=== PATIENT | female | born 1955 | race Caucasian/White ===

== ENCOUNTER 2017-09-26 21:16 | Inpatient (IN) | END 2017-10-08 20:05 | DRG 563 ==

== ENCOUNTER 2018-07-30 13:49 | Inpatient (IN) | payer MEDICARE, OTHER ==
[~2018-07-30] VITALS: Ht 162.6 cm; Wt 65.4 kg
[~2018-07-30 13:49] MED LIST: LANT3I SC; LINA5TAB PO; LISI10TA2 PO; MIRT15TA5 PO
--- NOTE | 2018-07-30 14:17 | ERD ---
ER Documentation Chief Complaint Chief Complaint bilaterial leg pain with swelling x 1 week HPI The patient is a 63-year-old female, presenting to the ER because of bilateral lower extremity swelling, dyspnea, cough, lower back pain, dysuria for 3 days. She denies similar symptoms previously, denies fever, chills, congestion, neck pain, chest pain, abdominal pain, complains of constipation. She does not smoke nor drink Past medical history: Diabetes mellitus, hypertension, chronic kidney disease, depression Past surgical history: None ROS All systems reviewed and are negative except as per history of present illness. Medications Home Meds Active Scripts Linagliptin (TRADJENTA) 5 Mg Tablet, 5 MG PO QAM for 30 Days, #30 TAB Prov:ERIN HARMON MD 10/08/17 Discontinued Scripts Insulin Glargine* (Lantus*) 100 Unit/Ml Soln, 10 UNIT SC DAILY@08 for 30 Days, #1 Prov:ERIN HARMON MD 10/08/17 Mirtazapine* (Mirtazapine*) 15 Mg Tablet, 15 MG PO HS for 30 Days, #30 TAB 1 Refill Prov:ERIN HARMON MD 10/08/17 Lisinopril* (Lisinopril*) 10 Mg Tablet, 10 MG PO DAILY for 30 Days, #30 TAB Prov:ERIN HARMON MD 10/08/17 Allergies Allergies: Coded Allergies: No Known Allergy (Unverified , 07/30/18) PMhx/Soc Anesthesia Reaction: No Hx Respiratory Disorders: No Hx Cardiac Disorders: No Hx Miscellaneous Medical Probl: Yes (See EMR for details. ) Hx Alcohol Use: No Hx Substance Use: No Hx Tobacco Use: No Physical Exam Vitals Vital Signs Date Temp Pulse Resp B/P (MAP) Pulse Ox O2 O2 Flow FiO2 Time Delivery Rate 07/30/18 87 22 118/90 96 BIPAP 5.0 18:29 (99) 07/30/18 88 26 113/85 89 Nasal 17:03 (94) Cannula 07/30/18 89 97 50 15:23 07/30/18 88 20 119/90 94 Room Air 5.0 14:49 (100) 07/30/18 Nasal 5 14:43 Cannula 07/30/18 98.5 84 18 140/88 98 13:53 (105) Physical Exam Const: Mild acute distress. Head: Atraumatic. Eyes: Normal Conjunctiva. ENT: Normal External Ears, Nose and Mouth. Neck: Full range of motion. No meningismus. Resp: Basilar crackle Cardio: Regular rate and rhythm. Abd: Soft, non distended, normal bowel sounds, non tender. Skin: No petechiae or rashes. Back: No midline or flank tenderness. Ext: Bilateral lower extremity edema with mild calf tenderness Neur: Awake and alert. No focal deficit Psych: Normal Mood and Affect. Result Diagram: 07/30/18 1442 07/30/18 1442 Results 24 hrs Laboratory Tests Test 07/30/18 14:41 07/30/18 14:42 07/30/18 15:30 07/30/18 16:02 POC Venous 2.0 mmol/L Lactate White Blood 9.8 10^3/ul Count Red Blood Count 3.46 10^6/ul Hemoglobin 10.3 g/dl Hematocrit 32.2 % Mean Corpuscular 93.1 fl Volume Mean Corpuscular 29.8 pg Hemoglobin Mean Corpuscular 32.0 g/dl Hemoglobin Jenna nt Red Cell 12.9 % Distribution Width Platelet Count 239 10^3/UL Mean Platelet 12.3 fl Volume Immature 0.500 % Granulocytes % Neutrophils % 79.9 % Lymphocytes % 11.7 % Monocytes % 7.4 % Eosinophils % 0.3 % Basophils % 0.2 % Nucleated Red 0.2 /100WBC Blood Cells % Immature 0.050 10^3/ul Granulocytes # Neutrophils # 7.8 10^3/ul Lymphocytes # 1.1 10^3/ul Monocytes # 0.7 10^3/ul Eosinophils # 0.0 10^3/ul Basophils # 0.0 10^3/ul Nucleated Red 0.0 10^3/ul Blood Cells # Prothrombin Time 14.6 Sec Prothrombin Time 1.1 Ratio INR 1.13 International Normalized Ratio Activated 26.1 Sec Partial Thrombop last Time Sodium Level 138 mmol/L Potassium Level 4.7 mmol/L Chloride Level 107 mmol/L Carbon Dioxide 15 mmol/L Level Anion Gap 16 Blood Urea 91 mg/dl Nitrogen Creatinine 3.02 mg/dl Est Glomerular 16 mL/min Filtrat Rate mL/min Glucose Level 183 mg/dl Calcium Level 9.5 mg/dl Total Bilirubin 0.6 mg/dl Direct Bilirubin 0.00 mg/dl Indirect 0.6 mg/dl Bilirubin Aspartate Amino 42 IU/L Transf (AST/SGOT ) Alanine 34 IU/L Aminotransferase (ALT/SGPT) Alkaline 147 IU/L Phosphatase Troponin I 26.500 ng/ml B-Type 07792 PG/ML Natriuretic Peptide Total Protein 8.0 g/dl Albumin 4.1 g/dl Globulin 3.90 g/dl Albumin/Globulin 1.05 Ratio Urine Color ALEX Urine Clarity CLOUDY Urine pH 6.0 Urine Specific 1.019 [place] Urine Ketones NEGATIVE mg/dL Urine Nitrite NEGATIVE mg/dL Urine Bilirubin NEGATIVE mg/dL Urine 1+ mg/dL Urobilinogen Urine Leukocyte NEGATIVE Edward/ul Esterase Urine 2 /HPF Microscopic RBC Urine 5 /HPF Microscopic WBC Urine Squamous MODERATE /HPF Epithelial Cells Urine Amorphous FEW /HPF Crystals Urine Bacteria MANY /HPF Urine Hemoglobin 1+ mg/dL Urine Glucose NEGATIVE mg/dL Urine Total 2+ mg/dl Protein Bedside Urine pH 6.5 (LAB) Bedside Urine 3+ Protein (LAB) Bedside Urine Negative Glucose (UA) Bedside Urine Negative Ketones (LAB) Bedside Urine Trace-lysed Blood Bedside Urine Negative Nitrite (LAB) Bedside Urine Negative Leukocyte Estera se (L Test 07/30/18 16:32 07/30/18 18:22 Blood Gas Blood arterial Specimen Source Arterial Blood 07/30/2018 4:50:2 Date Drawn 1 PM Arterial Blood 7.387 pH (Temp corrected) Arterial Blood 24.2 mmhg pCO2 (Temp correct) Arterial Blood 51.6 mmHG pO2 (Temp corrected) Arterial Blood 14.2 mmol/L HCO3 Arterial Blood -9.2 mmol/L Base Excess Arterial Blood 84.0 mmHG Oxygen Saturatio n [place] Test ACCEPTAB Arterial Blood Right Radial Gas Puncture Site Arterial 0.3 % Blood Carboxyhem oglobin Arterial Blood 0.3 % Methemoglobin Blood Gas A-a O2 177.0 mmHg Differential Oxyhemoglobin 83.5 % Percent Blood Gas 37.0 C Temperature Blood Gas NASAL CANNULA Modality FiO2 36.0 % Blood Gas DR. OLSON Critical Value Read Back Blood Gas RT Notified Whom Blood Gas 07/30/2018 4:57:0 Notified Time 2 PM Lactic Acid 1.7 mmol/L Level Current Medications Medications Dose Sig/Annie Start Time Status Last (Trade) Ordered Route PRN Stop Time Admin Dose Reason Admin Furosemide 80 mg ONCE ONCE 07/30/18 DC 07/30/18 (Lasix) IV 17:00 07/30/18 17:00 17:01 Vancomycin 250 ml @ ONCE ONCE 07/30/18 DC 07/30/18 HCl 125 mls/hr IVPB 17:00 07/30/18 17:00 18:59 Piperacillin 50 ml @ ONCE ONCE 07/30/18 DC 07/30/18 Sod/ 100 mls/hr IVPB 17:00 07/30/18 16:55 Tazobactam 17:29 Sod Aspirin 162 mg ONCE ONCE 07/30/18 DC 07/30/18 (Aspirin) PO 17:00 07/30/18 17:03 17:01 IV Flush 3 ml PER 07/30/18 UNV (NS 3 ml) PROTOCOL IV 19:30 Ondansetron 4 mg Q6H PRN 07/30/18 UNV HCl (Zofran IV 19:30 Inj) NAUSEA/VOMITI NG 650 mg Q6H PRN 07/30/18 UNV Acetaminophen PO .PAIN 1-3 19:30 (Tylenol OR TEMP Tab) 1 tab Q6H PRN 07/30/18 UNV Acetaminophen PO .MOD PAIN 19:30 / 4-6 Hydrocodone Bitart ([place] (5/325)) Morphine 2 mg Q4H PRN 07/30/18 UNV Sulfate IV .SEVERE 19:30 (morphine) PAIN 7-10 Docusate 100 mg Q12H PRN 07/30/18 UNV Sodium PO 19:30 (Colace) .CONSTIPATION Zolpidem 5 mg QHS PRN 07/30/18 UNV Tartrate PO .INSOMNIA 19:30 (Ambien) DC ONCE ONCE 07/30/18 UNV Miscellaneous previous XX 19:30 07/30/18 hepa... 19:31 Information (* Miscellaneous Pharmacy Order) Heparin 3,900 unit ONCE ONCE 07/30/18 UNV Sodium IV 19:30 07/30/18 (Porcine) 19:31 (Heparin (1000 Units/ml)) Heparin 3,900 unit PER PROTOCOL 07/30/18 UNV Sodium PRN IV 19:30 (Porcine) aPTT<47 (Heparin (1000 Units/ml)) Heparin 250 ml @ 0 PER 07/30/18 UNV Sodium mls/hr PROTOCOL IV 19:30 (Porcine) Discontinue ONCE ONCE 07/30/18 UNV Miscellaneous current oral XX 19:30 07/30/18 sulfonylur... 19:31 Information (* Miscellaneous Pharmacy Order) Diagnostic 1 ea 02 XX 07/31/18 UNV Test (Pha) 02:00 (Accu-Chek) ONCE ONCE 07/30/18 UNV Miscellaneous HYPOGLYCEMIA XX 19:30 07/30/18 PROTOCOL 19:31 Information w... (* Miscellaneous Pharmacy Order) Insulin NOVOLOG Q4 SC 07/30/18 UNV Aspart *MILD* 21:00 (Novolog ALGORI... Insulin Pen) Discontinue ONCE ONCE 07/30/18 UNV Miscellaneous all previ... XX 19:30 07/30/18 19:31 Information (* Miscellaneous Pharmacy Order) Ceftriaxone 50 ml @ Q24H IVPB 07/30/18 UNV Sodium 100 mls/hr 19:30 Azithromycin 250 ml @ Q24H IVPB 07/30/18 UNV 250 mls/hr 19:30 80 mg HS PO 07/30/18 UNV Atorvastatin 21:00 Calcium (Lipitor) Insulin 7 units DAILY@199907/30/18 UNV Glargine SC 20:00 (Lantus) Procedures/[place] [id number] Radiology Main Line: [phone] DIAGNOSTIC IMAGING REPORT Patient: MORENO PATEL : 1955 Age: 63 Sex: F MR #: [id number] DOS: 07/30/18 [facility]9 Ordering MD: JANEL OLSON MD Location: E/R Room/Bed: PROCEDURE: XR Chest. CLINICAL INDICATION: Possible sepsis TECHNIQUE: Single portable view of the chest was obtained COMPARISON: No priors for comparison FINDINGS: The trachea is midline. The cardiac silhouette is enlarged and pulmonary vasc ularity are within normal limits. There are bilateral perihilar infiltrates. Small bilateral effusions. There is atherosclerotic calcification of the aortic knob.. IMPRESSION: 1. Cardiomegaly and atherosclerotic disease. 2. Bilateral perihilar infiltrates, concerning for pneumonia in the appropriate clinical setting. RPTAT: AAPP Physician Marshall Date Time Electronically viewed and signed by Physician Marshall on 07/30/2018 15:19 JL/ CC: JANEL OLSON MD [id number] [place] [address] Radiology Main Line: [phone] DIAGNOSTIC IMAGING REPORT Patient: MORENO PATEL : 1955 Age: 63 Sex: F MR #: [id number] DOS: 07/30/18 1429 Ordering MD: JANEL OLSON MD Location: E/R Room/Bed: PROCEDURE: US Lower extremity Venous. CLINICAL INDICATION: Bilateral lower extremity edema , pain TECHNIQUE: Multiple sonographic images of the bilateral lower extremity deep venous system was obtained utilizing grayscale, color-flow, compressive sonography and doppler imaging with augmentation. The images were reviewed on a PACS workstation. COMPARISON: None. FINDINGS: There is normal compressibility and flow within the bilateral common femoral, femoral , posterior tibial and popliteal veins. RPTAT: AA IMPRESSION: No sonographic evidence for deep venous thrombosis. .Jerrell Adam MD, MD Date Time Electronically viewed and signed by .Jerrell Adam MD, on 07/30/2018 15:05 .S/ CC: JANEL OLSON MD [id number] EKG: Read by emergency physician Rate/Rhythm: Normal Sinus Rhythm 88 beats/min QRS, ST, T-waves: No ST elevation, no T inversion nonspecific intraventricular block, septal Q waves Impression: Abnormal EKG MEDICAL MAKING DECISION: The patient is a 73-year-old female, presenting with acute respiratory failure, acute CHF exacerbation, probable acute non-STEMI, acute severe sepsis due to probable acute pneumonia. She was treated with Lasix 80 mg IV for acute CHF exac, medicine IV and Zosyn IV for acute severe sepsis due to acute pneumonia, aspirin 160 mg p.o. due to probable acute non-STEMI, and put on BIPAP for acute resp failure with good response. The differential diagnoses considered include but are not limited to pneumonia, aspiration pneumonia, CHF, ACS, non-STEMI, cardiogenic shock MDM: Patient's infectious symptoms have not stabilized and the patient is at risk of rapid decompensation. The patient will be admitted for careful hydration, antibiotic therapy, and infectious source control. SEVERE SEPSIS CRITERIA: Infectious source: pna End organ damage indicated by: Acute Resp Failure (sat < 92% w/o oxygen) SEPSIS MANAGEMENT Time of recognition of severe sepsis: 4:40pm 3 HOUR BUNDLE Blood cultures x 2 before broad-spectrum antibiotics: [Yes] 30 ml/kg NS bolus Not Completed because she has concurrent acute CHF exacerbat ion Initial lactate []2 Repeat lactate Pending CRITICAL CARE Critical care time [35] minutes Emergent fluid management while maintaining close respiratory support. Provision of immediate and broad-spectrum antibiotic therapy. Simultaneous assessment for possible sources in order to direct targeted therapy. Consideration for invasive and chemical support to prevent cardiopulmonary collapse. Critical care time is independent of procedures performed. Departure Diagnosis: Primary Impression: Respiratory failure, acute Additional Impressions: Severe sepsis PNA (pneumonia) CHF (congestive heart failure) Non-ST elevation CA (NSTEMI) Anemia [id number] kidney injury Condition: Critical Comments I discussed the findings with the patient. I discussed the patient with the hospitalist Dr Cruz at 4:45 p who was made aware of the lab, the treatment, the patient condition. The patient is admitted to ICU Disclaimer: Inadvertent spelling and grammatical errors are likely due to EHR/dictation software use and do not reflect on the overall quality of patient care. Also, please note that the electronic time recorded on this note does not necessarily reflect the actual time of the patient encounter. JANEL OLSON MD Jul 30, 2018 14:17
[2018-07-30] MEDS ORDERED: FUROSEMIDE 40 MG INJ IV ONE (17:00)
[2018-07-30] MEDS ORDERED: PIPER-TAZO 2.25 GM (PMX) 50 ML IVPB ONE (17:00)
[2018-07-30] MEDS ORDERED: ASPIRIN 81 MG TAB PO ONE (17:00)
[2018-07-30] MEDS ORDERED: VANCOMYCIN 1 GM (PMX) 250 ML IVPB ONE (17:00)
--- NOTE | 2018-07-30 19:22 | HP ---
Date/Time of Note Date/Time of Note DATE: 07/30/18 TIME: 19:14 Assessment/Plan VTE Prophylaxis Pharmacological prophylaxis: heparin Lines/Catheters IV Catheter Type (from [facility]): [place] Assessment/Plan Hospital Course 1. Non-STEMI Heparin drip Lipitor Cardiology consultation with Dr. Reynaga obtained Admit to ICU Follow-up on A1c and lipid profile 2. Acute respiratory failure secondary to edema and/or pneumonia No evidence of sepsis but will treat empirically for pneumonia, consider discontinuation in the next several days Patient on BiPAP Pulmonology consultation 3. Acute on chronic kidney disease Patient's renal function continues to decline Nephrology consultation 4. Anion gap metabolic acidosis with respiratory compensation secondary to renal failure Nephrology consultation obtained Lactic acid is normal, UA negative for ketones 5. Diabetes Sliding scale and Lantus 6. Normocytic anemia secondary to chronic disease and renal failure Monitor Prophylaxis: Heparin Result Diagram: 07/30/18 1442 07/30/18 1442 Results 24hrs Laboratory Tests Test 07/30/18 14:41 07/30/18 14:42 07/30/18 15:30 07/30/18 16:02 POC Venous 2.0 Lactate White Blood Count 9.8 Red Blood Count 3.46 L Hemoglobin 10.3 L Hematocrit 32.2 L Mean Corpuscular 93.1 Volume Mean Corpuscular 29.8 Hemoglobin Mean Corpuscular 32.0 Hemoglobin Concen t Red Cell 12.9 Distribution Width Platelet Count 239 # Mean Platelet 12.3 H Volume Immature 0.500 H Granulocytes % Neutrophils % 79.9 H Lymphocytes % 11.7 L Monocytes % 7.4 Eosinophils % 0.3 Basophils % 0.2 Nucleated Red 0.2 H Blood Cells % Immature 0.050 H Granulocytes # Neutrophils # 7.8 H Lymphocytes # 1.1 Monocytes # 0.7 Eosinophils # 0.0 Basophils # 0.0 Nucleated Red 0.0 Blood Cells # Prothrombin Time 14.6 Prothrombin Time 1.1 Ratio INR International 1.13 Normalized Ratio Activated 26.1 Partial Thrombopl ast Time Sodium Level 138 Potassium Level 4.7 Chloride Level 107 Carbon Dioxide 15 L Level Anion Gap 16 H Blood Urea 91 H Nitrogen Creatinine 3.02 H Est Glomerular 16 L Filtrat Rate mL/min Glucose Level 183 Calcium Level 9.5 Total Bilirubin 0.6 Direct Bilirubin 0.00 Indirect 0.6 Bilirubin Aspartate Amino 42 Transf (AST/SGOT) Alanine 34 Aminotransferase (ALT/SGPT) Alkaline 147 H Phosphatase Troponin I 26.500 *H B-Type 81643 H Natriuretic Peptide Total Protein 8.0 Albumin 4.1 Globulin 3.90 H Albumin/Globulin 1.05 Ratio Urine Color ALEX Urine Clarity CLOUDY A Urine pH 6.0 Urine Specific 1.019 [place] Urine Ketones NEGATIVE Urine Nitrite NEGATIVE Urine Bilirubin NEGATIVE Urine 1+ H Urobilinogen Urine Leukocyte NEGATIVE Esterase Urine Microscopic 2 RBC Urine Microscopic 5 WBC Urine Squamous MODERATE Epithelial Cells Urine Amorphous FEW A Crystals Urine Bacteria MANY A Urine Hemoglobin 1+ H Urine Glucose NEGATIVE Urine Total 2+ H Protein Bedside Urine pH 6.5 (LAB) Bedside Urine 3+ H Protein (LAB) Bedside Urine Negative Glucose (UA) Bedside Urine Negative Ketones (LAB) Bedside Urine Trace-lysed H Blood Bedside Urine Negative Nitrite (LAB) Bedside Urine Negative Leukocyte Esteras e (L Test 07/30/18 16:32 07/30/18 18:22 Blood Gas Blood arterial Specimen Source Arterial Blood 07/30/2018 4:50:21 Date Drawn PM Arterial Blood pH 7.387 (Temp corrected) Arterial Blood 24.2 L pCO2 (Temp correct) Arterial Blood 51.6 *L pO2 (Temp corrected) Arterial Blood 14.2 L HCO3 Arterial Blood -9.2 L Base Excess Arterial Blood 84.0 L Oxygen Saturation [place] Test ACCEPTAB Arterial Blood Right Radial Gas Puncture Site Arterial 0.3 Blood Carboxyhemo globin Arterial Blood 0.3 Methemoglobin Blood Gas A-a O2 177.0 H Differential Oxyhemoglobin 83.5 L Percent Blood Gas 37.0 Temperature Blood Gas NASAL CANNULA Modality FiO2 36.[address] OLSON Critical Value Read Back Blood Gas RT Notified Whom Blood Gas 07/30/2018 4:57:02 Notified Time PM Lactic Acid Level 1.7 HPI/ROS Admit Date/Time Admit Date/Time July 30, 2018 Hx of Present Illness Patient is a 63-year-old female with a history of diabetes, CKD, depression, left humerus fracture. Patient presents with several days of back pain as well as pain in the lower extremities. In the ER chest x-ray showed possible pneumonia and troponin level was elevated. Patient denied any chest pain ultrasound of lower extremities were negative for DVT. Patient was placed on BiPAP and history is obtained from daughter who is bedside as well as previous documentation. ROS Subjective hx not possible: pt critical status PMH/Family/Social Past Medical History As per HPI Medications Current Medications IV Flush (NS 3 ml) 3 ml PER PROTOCOL IV ; Start 07/30/18 at 19:30; Status UNV Ondansetron HCl (Zofran Inj) 4 mg Q6H PRN IV NAUSEA/VOMITING; Start 07/30/18 at 19:30; Status UNV Acetaminophen (Tylenol Tab) 650 mg Q6H PRN PO .PAIN 1-3 OR TEMP; Start 07/30/18 at 19:30; Status UNV Acetaminophen/ Hydrocodone Bitart ([place] (5/325)) 1 tab Q6H PRN PO .MOD PAIN 4- 6; Start 07/30/18 at 19:30; Status UNV Morphine Sulfate (morphine) 2 mg Q4H PRN IV .SEVERE PAIN 7-10; Start 07/30/18 at 19:30; Status UNV Docusate Sodium (Colace) 100 mg Q12H PRN PO .CONSTIPATION; Start 07/30/18 at 19:30; Status UNV Zolpidem Tartrate (Ambien) 5 mg QHS PRN PO .INSOMNIA; Start 07/30/18 at 19:30; Status UNV Miscellaneous Information (* Miscellaneous Pharmacy Order) DC previous hepa... ONCE ONCE XX ; Start 07/30/18 at 19:30; Stop 07/30/18 at 19:31; Status UNV Heparin Sodium (Porcine) (Heparin (1000 Units/ml)) 3,900 unit ONCE ONCE IV ; Start 07/30/18 at 19:30; Stop 07/30/18 at 19:31; Status UNV Heparin Sodium (Porcine) (Heparin (1000 Units/ml)) 3,900 unit PER PROTOCOL PRN IV aPTT<47; Start 07/30/18 at 19:30; Status UNV Heparin Sodium (Porcine) 250 ml @ 0 mls/hr PER PROTOCOL IV ; Start 07/30/18 at 19:30; Status UNV Miscellaneous Information (* Miscellaneous Pharmacy Order) Discontinue current oral sulfonylur... ONCE ONCE XX ; Start 07/30/18 at 19:30; Stop 07/30/18 at 19:31; Status UNV Diagnostic Test (Pha) (Accu-Chek) 1 ea 02 XX ; Start 07/31/18 at 02:00; Status UNV Miscellaneous Information (* Miscellaneous Pharmacy Order) HYPOGLYCEMIA PROTOCOL w... ONCE ONCE XX ; Start 07/30/18 at 19:30; Stop 07/30/18 at 19:31; Status UNV Insulin Aspart (Novolog Insulin Pen) NOVOLOG *MILD* ALGORI... Q4 SC ; Start 07/30/18 at 21:00; Status UNV Miscellaneous Information (* Miscellaneous Pharmacy Order) Discontinue all previ... ONCE ONCE XX ; Start 07/30/18 at 19:30; Stop 07/30/18 at 19:31; Status UNV Ceftriaxone Sodium 50 ml @ 100 mls/hr Q24H IVPB ; Start 07/30/18 at 19:30; Status UNV Azithromycin 250 ml @ 250 mls/hr Q24H IVPB ; Start 07/30/18 at 19:30; Status UNV Coded Allergies: No Known Allergy (Unverified , 07/30/18) Past Surgical History Past Surgical Hx: other Family History Significant Family History: no pertinent family hx Social History Alcohol Use: rarely Smoking Status: Never smoker Drug Use: none Exam/Review of Systems Vital Signs Vitals Vital Signs Date Temp Pulse Resp B/P (MAP) Pulse Ox O2 O2 Flow FiO2 Time Delivery Rate 07/30/18 87 22 118/90 96 BIPAP 5.0 18:29 (99) 07/30/18 50 15:23 07/30/18 98.5 13:53 Exam Constitutional: alert Respiratory: clear to auscultation Cardiovascular: regular rate and rhythm Gastrointestinal: soft; No distended Musculoskeletal: nl extremities to inspection VÍCTOR MIR Jul 30, 2018 19:22
[2018-07-30] MEDS ORDERED: NACL 0.9% 3 ML SYG IV SCH (19:30)
[2018-07-30] MEDS ORDERED: ACETAMINOPHEN 325 MG TAB PO PRN (19:30)
[2018-07-30] MEDS ORDERED: DOCUSATE SODIUM 100 MG CAP PO PRN (19:30)
[2018-07-30] MEDS ORDERED: ZOLPIDEM 5 MG TAB PO PRN (19:30)
[2018-07-30] MEDS ORDERED: HYDROCODONE/APAP (5/325) TAB PO PRN (19:30)
[2018-07-30] MEDS ORDERED: CEFTRIAXONE 1 GM/50 ML (PMX) 50 ML IVPB SCH (19:30)
[2018-07-30] MEDS ORDERED: morphine 2 MG INJ IV PRN (19:30)
[2018-07-30] MEDS ORDERED: HEPARIN 1000 UNITS/ML 10 ML INJ IV PRN (19:30)
[2018-07-30] MEDS ORDERED: HEPARIN 1000 UNITS/ML 10 ML INJ IV ONE (19:30)
[2018-07-30] MEDS ORDERED: ONDANSETRON 4 MG INJ IV PRN (19:30)
[2018-07-30] MEDS ORDERED: GLUCOSE GEL 15 GRAM TUBE BUCCAL PRN (20:00)
[2018-07-30] MEDS ORDERED: GLUCOSE GEL 15 GRAM TUBE PO PRN ×2 (20:00)
[2018-07-30] MEDS ORDERED: INSULIN GLARGINE [LANTus] (100 UNITS/ML) SYG SC SCH (20:00)
[2018-07-30] MEDS ORDERED: GLUCAGON 1 MG INJ IM PRN (20:00)
[2018-07-30] MEDS ORDERED: DEXTROSE 50% 50 ML SYRINGE IV PRN ×2 (20:00)
[2018-07-30] MEDS: HEPARIN 25000 UNITS/250 ML 250 ML IV SCH (21:52)
[2018-07-30 23:18] VITALS: PULSE 90
[2018-07-30 23:19] VITALS: PULSE 89
[2018-07-30 23:21] VITALS: BP 121/91; PULSE 88; RESP 24
[2018-07-30 23:30] VITALS: Ht 162.6 cm; Wt 65.4 kg
[2018-07-31] VITALS (21 sets, daily range): BP systolic 81–112; BP diastolic 56–75; PULSE 70–91; RESP 16–28
[2018-07-31] MEDS: AZITHROMYCIN 500MG/NS (PMX) 250 ML IVPB SCH ×2 (00:37→18:14)
[2018-07-31] MEDS: INSULIN ASPART [NOVOLOG] 3 ML PEN SC SCH ×6 (01:28→21:39)
[2018-07-31] MEDS ORDERED: ACCU-CHEK XX SCH (02:00)
[2018-07-31] MEDS ORDERED: DEXTROSE 5% 1,000 ML IV SCH (08:00)
--- NOTE | 2018-07-31 08:40 | CONS ---
DATE OF ADMISSION: 07/30/2018 DATE OF CONSULTATION: 07/31/2018 REQUESTING PHYSICIAN: Dr. Cruz. REASON FOR CONSULTATION: Acute kidney injury. HISTORY OF PRESENT ILLNESS: This is a 63-year-old female with a past medical history of chronic kidn ey disease with a previous baseline creatinine of around 1.6 to 1.9 mg/dL. There a history of diabet es, history of depression who presents to the [facility] Emergency Room with several days of back pain and lower extremities. The patient in the emergency room was noted to be in respiratory d istress. She had a chest x-ray, which showed a possible pneumonia, elevated troponin. The patient h ad a Doppler lower extremity ultrasound, which was negative for DVT. The patient was placed on BiPAP and was admitted to the intensive care unit. While in intensive care unit, the patient noted to hav e elevated troponin and was placed on heparin drip. There were no reports of any hemoptysis, hematem esis, or hematochezia. In terms of patient's renal history, the patient denies any prior history of chronic kidney disease, acute kidney injury. However, the patient's previous blood work is consistent with chronic kidney di sease given elevated creatinines of approximately 1.6 mg/dL. The patient currently now presents with a creatinine of 3.0 mg/dL. As stated above, the patient denied any hemoptysis, hematemesis, or robin tochezia. She denies any frothy urine. PAST MEDICAL HISTORY: As stated above, history of hypertension, history of chronic kidney disease, h istory of diabetes, history of depression. PAST SURGICAL HISTORY: Reviewed. ALLERGIES: NO KNOWN DRUG ALLERGIES. FAMILY HISTORY: No family history of kidney disease. SOCIAL HISTORY: She does not drink, smoke or do drugs. REVIEW OF SYSTEMS: A 14-point review of systems was conducted. Pertinent positives stated in HPI, o therwise negative. PHYSICAL EXAMINATION: VITAL SIGNS: Blood pressure is 125/80, respirations 16, pulse 97, temperature 98.6. HEENT: Head is normocephalic. NECK: Supple. HEART: Regular rate. LUNGS: Show diminished breath sounds at the base. ABDOMEN: Soft, nontender to palpation. No rebound or guarding. EXTREMITIES: Negative for clubbing, cyanosis. Positive edema. DERMATOLOGIC: No rashes. MUSCULOSKELETAL: No joint effusion. NEUROLOGIC: Limited exam, but no focal deficits. MEDICATIONS: Reviewed. LABORATORY DATA: Shows sodium 147, potassium 4.1, chloride 117, bicarbonate 14, BUN 98, creatinine 2 .97, phosphorus 5.7. The patient's CBC was reviewed. ABG was reviewed. Urinalysis was reviewed, sh owed positive epithelial cells, no pyuria, no hematuria, +2 proteinuria. ASSESSMENT AND PLAN: This is a 63-year-old female who presents with: 1. Nonoliguric acute kidney injury on top of chronic kidney disease with previous baseline creatinin e of 1.6 to 1.9 mg/dL. Etiology of acute kidney injury is likely multifactorial secondary to hemodyn amics, sepsis, tubular injury. The patient's urinalysis was reviewed, which showed no pyuria or robin turia. Positive proteinuria and epithelial cells, which can be seen in tubular injury. The possibi lity of progression of underlying chronic kidney disease is also a consideration. Lower suspicion fo r acute glomerulonephritis or vasculitis given the patient's initial clinical presentation. Plan at this point is to continue current treatment plan. Continue IV antibiotics, continue diuretic therapy as needed. Continue to renally dose all medicines and avoid nephrotoxins. We will monitor renal fu nction closely. Please note that if the patient does require cardiac catheterization, she is at medi um to high risk for contrast-associated nephropathy. Please also note that a possibility of cardiore nal syndrome as an underlying etiology of acute kidney injury is also a consideration. 2. Hypernatremia. The patient has free water deficit of approximately 2 liters. We will start the patient on hypertonic fluid. 3. Metabolic acidosis with respiratory compensation. Etiology is secondary to acute kidney injury. Plan at this point is to continue to monitor bicarbonate levels. No need for bicarbonate therapy. 4. Mineral bone disorder. The patient is hyperphosphatemic. Continue to monitor. 5. Anemia. Continue to monitor hemoglobin and hematocrit levels. 6. Acute hypoxemic respiratory failure secondary to pneumonia, questionable congestive heart failure . Continue antibiotic therapy. The patient is status post diuretic therapy. We will continue to mo nitor, continue BiPAP. 7. Non-ST elevation myocardial infarction. The patient is on heparin drip. We will follow up with cardiology consult with Dr. Reynaga. Continue to monitor. 8. Diabetes. Continue current insulin regimen. 9. Chronic kidney disease, etiology is likely secondary to diabetic nephropathy. The patient is cur rently in acute injury as stated above. Continue current treatment plan. Continue disease factor mo dification. Thank you, Dr. Cruz, for this interesting consult. It will be a pleasure to follow the patient wi th you throughout the hospital course. Dictated By: EVERT MARIANO DO NR/NTS Conf#: [id number] DID#: [id number] CC: VÍCTOR CRUZ MD; OFELIA REYNAGA MD;*EndCC*
--- NOTE | 2018-07-31 09:13 | CONS ---
Consultation Date/Type/Reason Admit Date/Time July 30, 2018 Type of Consult Cardiology Date/Time of Note DATE: 07/31/18 TIME: 09:11 Hx of Present Illness 63 yo withHTN, DM, ARF on CRF - CR 3.01 to 2.9 now, Trop going down from high 20s - on heparin - add ASA/low dose BB - might be better to wait with C now given ARF, DR. Herbert aware - will follow- Full Note Dictated - ECHO now. # [id number] Past Medical History Home Meds Active Scripts Linagliptin (TRADJENTA) 5 Mg Tablet, 5 MG PO QAM for 30 Days, #30 TAB Prov:ERIN HARMON MD 10/08/17 Discontinued Scripts Insulin Glargine* (Lantus*) 100 Unit/Ml Soln, 10 UNIT SC DAILY@08 for 30 Days, #1 Prov:ERIN HARMON MD 10/08/17 Mirtazapine* (Mirtazapine*) 15 Mg Tablet, 15 MG PO HS for 30 Days, #30 TAB 1 Refill Prov:ERIN HARMON MD 10/08/17 Lisinopril* (Lisinopril*) 10 Mg Tablet, 10 MG PO DAILY for 30 Days, #30 TAB Prov:ERIN HARMON MD 10/08/17 Medications Current Medications IV Flush (NS 3 ml) 3 ml PER PROTOCOL IV ; Start 07/30/18 at 19:30 Ondansetron HCl (Zofran Inj) 4 mg Q6H PRN IV NAUSEA/VOMITING; Start 07/30/18 at 19:30 Acetaminophen (Tylenol Tab) 650 mg Q6H PRN PO .PAIN 1-3 OR TEMP; Start 07/30/18 at 19:30 Acetaminophen/ Hydrocodone Bitart ([place] (5/325)) 1 tab Q6H PRN PO .MOD PAIN 4-6; Start 07/30/18 at 19:30 Morphine Sulfate (morphine) 2 mg Q4H PRN IV .SEVERE PAIN 7-10; Start 07/30/18 at 19:30 Docusate Sodium (Colace) 100 mg Q12H PRN PO .CONSTIPATION; Start 07/30/18 at 19:30 Zolpidem Tartrate (Ambien) 5 mg QHS PRN PO .INSOMNIA; Start 07/30/18 at 19:30 Heparin Sodium (Porcine) (Heparin (1000 Units/ml)) 3,900 unit PER PROTOCOL PRN IV aPTT<47; Start 07/30/18 at 19:30 Heparin Sodium (Porcine) 250 ml @ 8 mls/hr PER PROTOCOL IV Last administered on 07/30/18at 21:52; Admin Dose 8 MLS/HR; Start 07/30/18 at 19:30 Insulin Aspart (Novolog Insulin Pen) NOVOLOG *MILD* ALGORI... Q4 SC Last administered on 07/31/18at 01:28; Admin Dose 1 UNIT; Start 07/30/18 at 21:00 Ceftriaxone Sodium 50 ml @ 100 mls/hr Q24H IVPB Last administered on 07/31/18at 00:36; Admin Dose 100 MLS/HR; Start 07/30/18 at 19:30 Azithromycin 250 ml @ 250 mls/hr Q24H IVPB Last administered on 07/31/18at 00:37; Admin Dose 250 MLS/HR; Start 07/30/18 at 19:30 Atorvastatin Calcium (Lipitor) 80 mg HS PO ; Start 07/30/18 at 21:00 Insulin Glargine (Lantus) 7 units DAILY@2000 SC ; Start 07/30/18 at 20:00 Miscellaneous Information 1 ea NOTE XX ; Start 07/30/18 at 20:00 Glucose (Glutose) 15 gm Q15M PRN PO DECREASED GLUCOSE; Start 07/30/18 at 20:00 Glucose (Glutose) 22.5 gm Q15M PRN PO DECREASED GLUCOSE; Start 07/30/18 at 20:00 Dextrose (D50w Syringe) 25 ml Q15M PRN IV DECREASED GLUCOSE; Start 07/30/18 at 20:00 Dextrose (D50w Syringe) 50 ml Q15M PRN IV DECREASED GLUCOSE; Start 07/30/18 at 20:00 Glucagon (Glucagen) 1 mg Q15M PRN IM DECREASED GLUCOSE; Start 07/30/18 at 20:00 Glucose (Glutose) 15 gm Q15M PRN BUCCAL DECREASED GLUCOSE; Start 07/30/18 at 20:00 Dextrose 1,000 ml @ 50 mls/hr Q20H IV Last administered on 07/31/18at 09:03; Admin Dose 50 MLS/HR; Start 07/31/18 at 08:00 Allergies: Coded Allergies: No Known Allergy (Unverified , 07/30/18) Past Surgical History Past Surgical Hx: other Social History Alcohol Use: rarely Smoking Status: Never smoker Drug Use: none Exam/Review of Systems Vital Signs Vitals Vital Signs Date Temp Pulse Resp B/P (MAP) Pulse Ox O2 O2 Flow FiO2 Time Delivery Rate 07/31/18 76 28 92/62 (72) 100 BIPAP 06:00 07/31/18 40 05:24 07/31/18 98.6 04:00 07/30/18 5.0 18:29 Intake and Output 07/30/18 07/30/18 07/31/18 1515:00 23:00 07:00 IntakeIntake Total 8 ml 353.5 ml OutputOutput Total 1260 ml BalanceBalance 8 ml -906.5 ml Labs Result Diagram: 07/31/18 0452 07/31/18 0452 Results 24hrs Laboratory Tests Test 07/30/18 14:41 07/30/18 14:42 07/30/18 15:30 07/30/18 16:02 POC Venous 2.0 Lactate White Blood 9.8 Count Red Blood Count 3.46 L Hemoglobin 10.3 L Hematocrit 32.2 L Mean Corpuscular 93.1 Volume Mean Corpuscular 29.8 Hemoglobin Mean Corpuscular 32.0 Hemoglobin Jenna nt Red Cell 12.9 Distribution Width Platelet Count 239 # Mean Platelet 12.3 H Volume Immature 0.500 H Granulocytes % Neutrophils % 79.9 H Lymphocytes % 11.7 L Monocytes % 7.4 Eosinophils % 0.3 Basophils % 0.2 Nucleated Red 0.2 H Blood Cells % Immature 0.050 H Granulocytes # Neutrophils # 7.8 H Lymphocytes # 1.1 Monocytes # 0.7 Eosinophils # 0.0 Basophils # 0.0 Nucleated Red 0.0 Blood Cells # Prothrombin Time 14.6 Prothrombin Time 1.1 Ratio INR 1.13 International Normalized Ratio Activated 26.1 Partial Thrombop last Time Sodium Level 138 Potassium Level 4.7 Chloride Level 107 Carbon Dioxide 15 L Level Anion Gap 16 H Blood Urea 91 H Nitrogen Creatinine 3.02 H Est Glomerular 16 L Filtrat Rate mL/min Glucose Level 183 Calcium Level 9.5 Total Bilirubin 0.6 Direct Bilirubin 0.00 Indirect 0.6 Bilirubin Aspartate Amino 42 Transf (AST/SGOT ) Alanine 34 Aminotransferase (ALT/SGPT) Alkaline 147 H Phosphatase Troponin I 26.500 *H B-Type 19236 H Natriuretic Peptide Total Protein 8.0 Albumin 4.1 Globulin 3.90 H Albumin/Globulin 1.05 Ratio Urine Color ALEX Urine Clarity CLOUDY A Urine pH 6.0 Urine Specific 1.019 [place] Urine Ketones NEGATIVE Urine Nitrite NEGATIVE Urine Bilirubin NEGATIVE Urine 1+ H Urobilinogen Urine Leukocyte NEGATIVE Esterase Urine 2 Microscopic RBC Urine 5 Microscopic WBC Urine Squamous MODERATE Epithelial Cells Urine Amorphous FEW A Crystals Urine Bacteria MANY A Urine Hemoglobin 1+ H Urine Glucose NEGATIVE Urine Total 2+ H Protein Bedside Urine pH 6.5 (LAB) Bedside Urine 3+ H Protein (LAB) Bedside Urine Negative Glucose (UA) Bedside Urine Negative Ketones (LAB) Bedside Urine Trace-lysed H Blood Bedside Urine Negative Nitrite (LAB) Bedside Urine Negative Leukocyte Estera se (L Test 07/30/18 16:32 07/30/18 18:22 07/30/18 19:22 07/30/18 23:52 Blood Gas Blood arterial Specimen Source Arterial Blood 07/30/2018 4:50:2 Date Drawn 1 PM Arterial Blood 7.387 pH (Temp corrected) Arterial Blood 24.2 L pCO2 (Temp correct) Arterial Blood 51.6 *L pO2 (Temp corrected) Arterial Blood 14.2 L HCO3 Arterial Blood -9.2 L Base Excess Arterial Blood 84.0 L Oxygen Saturatio n [place] Test ACCEPTAB Arterial Blood Right Radial Gas Puncture Site Arterial 0.3 Blood Carboxyhem oglobin Arterial Blood 0.3 Methemoglobin Blood Gas A-a O2 177.0 H Differential Oxyhemoglobin 83.5 L Percent Blood Gas 37.0 Temperature Blood Gas NASAL CANNULA Modality FiO2 36.[address] OLSON Critical Value Read Back Blood Gas RT Notified Whom Blood Gas 07/30/2018 4:57:0 Notified Time 2 PM Lactic Acid 1.7 Level Prothrombin Time 15.1 H Prothrombin Time 1.2 Ratio INR 1.18 International Normalized Ratio Activated 25.3 Partial Thrombop last Time Bedside Glucose 160 Test 07/31/18 00:15 07/31/18 01:17 07/31/18 01:22 07/31/18 04:52 Troponin I 24.300 *H 23.400 *H Activated 81.3 *H Partial Thrombop last Time Bedside Glucose 160 White Blood 9.5 Count Red Blood Count 3.20 L Hemoglobin 9.7 L Hematocrit 30.1 L Mean Corpuscular 94.1 Volume Mean Corpuscular 30.3 Hemoglobin Mean Corpuscular 32.2 Hemoglobin Jenna nt Red Cell 13.0 Distribution Width Platelet Count 211 Mean Platelet 12.8 H Volume Immature 0.400 Granulocytes % Neutrophils % 75.9 Lymphocytes % 13.0 L Monocytes % 9.8 Eosinophils % 0.6 Basophils % 0.3 Nucleated Red 0.0 Blood Cells % Immature 0.040 H Granulocytes # Neutrophils # 7.2 Lymphocytes # 1.2 Monocytes # 0.9 Eosinophils # 0.1 Basophils # 0.0 Nucleated Red 0.0 Blood Cells # Sodium Level 147 H Potassium Level 4.1 Chloride Level 117 H Carbon Dioxide 14 L Level Anion Gap 16 H Blood Urea 98 H Nitrogen Creatinine 2.96 H Est Glomerular 16 L Filtrat Rate mL/min Glucose Level 139 # Hemoglobin A1c 6.4 H Calcium Level 9.3 Phosphorus Level 5.7 H Magnesium Level 2.4 Triglycerides 110 Level Cholesterol 198 Level LDL Cholesterol, 138 Calculated HDL Cholesterol 38 Cholesterol/HDL 5.2 Ratio Test 07/31/18 05:29 07/31/18 07:00 07/31/18 08:01 Bedside Glucose 121 Blood Gas Blood arterial Specimen Source Arterial Blood 07/31/2018 7:25:1 Date Drawn 4 AM Arterial Blood 7.368 pH (Temp corrected) Arterial Blood 28.5 L pCO2 (Temp correct) Arterial Blood 84.7 pO2 (Temp corrected) Arterial Blood 16.0 L HCO3 Arterial Blood -8.1 L Base Excess Arterial Blood 95.5 Oxygen Saturatio n [place] Test N/A Arterial Blood LB Gas Puncture Site Arterial 0.2 Blood Carboxyhem oglobin Arterial Blood 0.3 Methemoglobin Blood Gas A-a O2 167.7 H Differential Oxyhemoglobin 95.0 Percent Blood Gas 37.0 Temperature Blood Gas 16.0 Respiration Rate Blood Gas Actual 26 Respiration Rate Blood Gas MASK - BIPAP Modality FiO2 40.0 Blood Gas 10 Pressure Support Blood Gas 15/5 IPAP/EPAP Ratio Blood Gas TM Notified Whom Blood Gas 07/31/2018 7:39:0 Notified Time 9 AM Activated 52.3 H Partial Thrombop last Time Medications Medications Current Medications IV Flush (NS 3 ml) 3 ml PER PROTOCOL IV ; Start 07/30/18 at 19:30 Ondansetron HCl (Zofran Inj) 4 mg Q6H PRN IV NAUSEA/VOMITING; Start 07/30/18 at 19:30 Acetaminophen (Tylenol Tab) 650 mg Q6H PRN PO .PAIN 1-3 OR TEMP; Start 07/30/18 at 19:30 Acetaminophen/ Hydrocodone Bitart ([place] (5/325)) 1 tab Q6H PRN PO .MOD PAIN 4- 6; Start 07/30/18 at 19:30 Morphine Sulfate (morphine) 2 mg Q4H PRN IV .SEVERE PAIN 7-10; Start 07/30/18 at 19:30 Docusate Sodium (Colace) 100 mg Q12H PRN PO .CONSTIPATION; Start 07/30/18 at 19:30 Zolpidem Tartrate (Ambien) 5 mg QHS PRN PO .INSOMNIA; Start 07/30/18 at 19:30 Heparin Sodium (Porcine) (Heparin (1000 Units/ml)) 3,900 unit PER PROTOCOL PRN IV aPTT<47; Start 07/30/18 at 19:30 Heparin Sodium (Porcine) 250 ml @ 8 mls/hr PER PROTOCOL IV Last administered on 07/30/18at 21:52; Admin Dose 8 MLS/HR; Start 07/30/18 at 19:30 Insulin Aspart (Novolog Insulin Pen) NOVOLOG *MILD* ALGORI... Q4 SC Last administered on 07/31/18at 01:28; Admin Dose 1 UNIT; Start 07/30/18 at 21:00 Ceftriaxone Sodium 50 ml @ 100 mls/hr Q24H IVPB Last administered on 07/31/18at 00:36; Admin Dose 100 MLS/HR; Start 07/30/18 at 19:30 Azithromycin 250 ml @ 250 mls/hr Q24H IVPB Last administered on 07/31/18at 00:37; Admin Dose 250 MLS/HR; Start 07/30/18 at 19:30 Atorvastatin Calcium (Lipitor) 80 mg HS PO ; Start 07/30/18 at 21:00 Insulin Glargine (Lantus) 7 units DAILY@2000 SC ; Start 07/30/18 at 20:00 Miscellaneous Information 1 ea NOTE XX ; Start 07/30/18 at 20:00 Glucose (Glutose) 15 gm Q15M PRN PO DECREASED GLUCOSE; Start 07/30/18 at 20:00 Glucose (Glutose) 22.5 gm Q15M PRN PO DECREASED GLUCOSE; Start 07/30/18 at 20:00 Dextrose (D50w Syringe) 25 ml Q15M PRN IV DECREASED GLUCOSE; Start 07/30/18 at 20:00 Dextrose (D50w Syringe) 50 ml Q15M PRN IV DECREASED GLUCOSE; Start 07/30/18 at 20:00 Glucagon (Glucagen) 1 mg Q15M PRN IM DECREASED GLUCOSE; Start 07/30/18 at 20:00 Glucose (Glutose) 15 gm Q15M PRN BUCCAL DECREASED GLUCOSE; Start 07/30/18 at 20:00 Dextrose 1,000 ml @ 50 mls/hr Q20H IV Last administered on 07/31/18at 09:03; Admin Dose 50 MLS/HR; Start 07/31/18 at 08:00 LANNY SILVER MD Jul 31, 2018 09:13
--- NOTE | 2018-07-31 09:31 | CONS ---
DATE OF ADMISSION: 07/30/2018 DATE OF CONSULTATION: 07/31/2018 REFERRING PHYSICIAN: Dr. Cruz. TYPE OF CONSULTATION: Cardiology. REASON FOR EVALUATION: Acute myocardial infarction. HISTORY OF PRESENT ILLNESS: Ms. Krueger is a 63-year-old woman with history of chronic renal insuffic iency with baseline creatinine of 1.9. History of hypertension, history of dyslipidemia, history of COPD and diabetes in the past who comes to the hospital now for evaluation of respiratory tract illne ss and shortness of breath. On presentation, the patient was placed on BiPAP and she was treated for pneumonia in a setting of this event. She was noted to have a very high troponin. It appears that o n presentation, her troponin was 26.5. She was assessed by the emergency room team and she was deeme d to be a noninvasive candidate at that particular point and she is transferred to ICU for monitoring . Her troponin is trending downward, now to 23 0.4 and she does not show any evidence of hemodynamic instability at this particular point. Patient is in acute renal failure with a creatinine of 3.02 o n presentation. Currently, she is on heparin with trending down troponin and as such, I think she o ught to be treated at this particular point as non-ST elevation myocardial infarction. I reviewed th e EKG carefully. She has intraventricular conduction delay of left bundle type pattern which makes he r in interpretable but as the blood pressure remains to be stable the initial decision was made not t o pursue the acute intervention. I think for now conservative therapy would be expected. Dr. Zoila nicole is aware of the patient and there is a consideration of left heart catheterization once the patient is more hemodynamically stable. We will try to optimize her blood pressure monitoring and fluid sta tus. ALLERGIES: NO KNOWN DRUG ALLERGIES. SOCIAL HISTORY: The patient has history of . Does not drink. FAMILY HISTORY: Negative for sudden cardiac . There is history of diabetes in the family. CURRENT MEDICATIONS: Include: 1. Insulin on a sliding scale. 2. Lipitor 8 mg once a day. 3. Glucose supplements. 4. Subcutaneous heparin. 5. Ceftriaxone. 6. Azithromycin. 7. She received aspirin in the emergency department. REVIEW OF SYSTEMS: CONSTITUTIONAL: Possible recent febrile illness. Patient is short of breath but better now. SKIN: Does not show any chest pains. HEENT: No JVD. CARDIAC: Possible chest pain. Prior short of breath but no chest pain now. RESPIRATORY: Short of breath chronically with good respiration. GASTROINTESTINAL: No nausea, vomiting. GENITOURINARY: No dysuria, hematuria. Patient has a urinary tract infection and a history of renal insufficiency. ENDOCRINE: History of diabetes. PHYSICAL EXAMINATION: VITAL SIGNS: Currently temperature is 98.6, heart rate is 76, blood pressure 92/62. GENERAL: She is a thin woman in no acute distress. Appears comfortable in mild degree of fluid over load. HEENT: No changes in vision. CARDIAC: Chest pain reported. NECK: Supple. JVD is 6-7 cm. There is no lymphadenopathy, no thyromegaly. HEART: Regular with PMI displaced leftward. LUNGS: Coarse at the base. ABDOMEN: Distended, bowel sounds are present. There is no hepatomegaly. GENITOURINARY: Intact. EXTREMITIES: Shows trace edema. LABORATORY DATA: ECG read by me, intraventricular conduction delay of left bundle branch type patter n with some nonspecific ST-T changes. Her bundle branch block prevents accurate assessment of ST-T e levations. Sodium 147, potassium 4.1. Her BUN is 29, creatinine is 2.96. Hemoglobin A1c is 9.4. Troponin from peak of 26, now down to 23.4. INR is 1.18. She is on heparin per protocol. White blood cell count 9.5, hemoglobin 9.7, platelets 211. ASSESSMENT AND PLAN: 1. Acute myocardial infarction. Patient with acute myocardial infarction presenting as shortness of breath but without any dany pain. Her EKG is nondiagnostic for ST elevation myocardial infarction. The decision was made to initially treat the patient conservatively. She is on heparin drip right now. I am going to make sure that she is on aspirin. At the moment Dr. Reynaga will assess the patie nt for possible left heart catheterization, although at this point if the patient remains to be hemod ynamically stable, there might be an advantage to waiting until the creatinine improves to baseline. There is a risk of proceeding to end-stage renal disease and is very high. 2. Shortness of breath. Shortness of breath is multifactorial. The patient has been treated with a ntibiotics. She is on BiPAP. We will facilitate a 2D echo to establish ejection fraction. 3. Pneumonia. Continue antibiotic therapy is noted. 4. Hypertension. Blood pressure is borderline. The patient is asymptomatic. Continue to monitor c linically. 5. Pneumonia. Continue patient on antibiotics. 6. Renal insufficiency, acute on chronic. Dr. Tang's note appreciated. Continue to avoid nephro toxic medications. I would like to thank Dr. Cruz for referring this patient for my evaluation. Dictated By: LANNY SILVER MD ML/NTS Conf#: [id number] DID#: [id number]
--- NOTE | 2018-07-31 09:36 | CONS ---
Assessment/Plan Assessment/Plan Assessment/Plan (Daily) Chest x-ray showing diffuse bilateral pneumonia with possibility of superimposed luminary edema. Assessment recommendations; 1. Patient admitted with acute [place] with likely superimposed pneumonia. 2. Chronic renal insufficiency. 3. History of diabetes. Continue current supportive care. Monitor renal function. Obtain follow-up chest x-ray 24 hours. Discontinue Rocephin and switch the patient to cefepime. If the patient decompensates, she likely will need to be intubated. Consultation Date/Type/Reason Admit Date/Time July 30, 2018 Date of Consultation: Jul 31, 2018 Type of Consult Pulmonary/critical care Pulmonary consult requested for evaluation of pneumonia. Patient is a 63-year-old lady who came into the hospital with complaints of chest pain and shortness of breath. The patient had significant elevation in troponin levels as well as chest x-ray showing bilateral pneumonia. Patient has been admitted to ICU and is on BiPAP. By the time I saw her, patient is BiPAP and appears comfortable and did not appear to be in any distress whatsoever. History has been obtained from medical records. Past medical history; 1. History of chronic renal insufficiency. 2. History of left humeral fracture. 3. Diabetes. Medications; reviewed. Allergies; none. Social history; noncontributory. Family history; not available. Patient apparently has a supportive family though. Occupational history; not available. Review of systems; limited review of system could be obtained. Patient denies any further shortness of breath, denies any chest pain. Any nausea vomiting. Any abdominal pain. General exam; elderly female, awake alert, on BiPAP. Currently in no distress. Date/Time of Note DATE: 07/31/18 TIME: 09:32 Past Medical History Home Meds Active Scripts Linagliptin (TRADJENTA) 5 Mg Tablet, 5 MG PO QAM for 30 Days, #30 TAB Prov:ERIN HARMON MD 10/08/17 Discontinued Scripts Insulin Glargine* (Lantus*) 100 Unit/Ml Soln, 10 UNIT SC DAILY@08 for 30 Days, #1 Prov:ERIN HARMON MD 10/08/17 Mirtazapine* (Mirtazapine*) 15 Mg Tablet, 15 MG PO HS for 30 Days, #30 TAB 1 Refill Prov:ERIN HARMON MD 10/08/17 Lisinopril* (Lisinopril*) 10 Mg Tablet, 10 MG PO DAILY for 30 Days, #30 TAB Prov:ERIN HARMON MD 10/08/17 Medications Current Medications IV Flush (NS 3 ml) 3 ml PER PROTOCOL IV ; Start 07/30/18 at 19:30 Ondansetron HCl (Zofran Inj) 4 mg Q6H PRN IV NAUSEA/VOMITING; Start 07/30/18 at 19:30 Acetaminophen (Tylenol Tab) 650 mg Q6H PRN PO .PAIN 1-3 OR TEMP; Start 07/30/18 at 19:30 Acetaminophen/ Hydrocodone Bitart ([place] (5/325)) 1 tab Q6H PRN PO .MOD PAIN 4- 6; Start 07/30/18 at 19:30 Morphine Sulfate (morphine) 2 mg Q4H PRN IV .SEVERE PAIN 7-10; Start 07/30/18 at 19:30 Docusate Sodium (Colace) 100 mg Q12H PRN PO .CONSTIPATION; Start 07/30/18 at 19:30 Zolpidem Tartrate (Ambien) 5 mg QHS PRN PO .INSOMNIA; Start 07/30/18 at 19:30 Heparin Sodium (Porcine) (Heparin (1000 Units/ml)) 3,900 unit PER PROTOCOL PRN IV aPTT<47; Start 07/30/18 at 19:30 Heparin Sodium (Porcine) 250 ml @ 8 mls/hr PER PROTOCOL IV Last administered on 07/30/18at 21:52; Admin Dose 8 MLS/HR; Start 07/30/18 at 19:30 Insulin Aspart (Novolog Insulin Pen) NOVOLOG *MILD* ALGORI... Q4 SC Last administered on 07/31/18at 01:28; Admin Dose 1 UNIT; Start 07/30/18 at 21:00 Azithromycin 250 ml @ 250 mls/hr Q24H IVPB Last administered on 07/31/18at 00:37; Admin Dose 250 MLS/HR; Start 07/30/18 at 19:30 Atorvastatin Calcium (Lipitor) 80 mg HS PO ; Start 07/30/18 at 21:00 Insulin Glargine (Lantus) 7 units DAILY@2000 SC ; Start 07/30/18 at 20:00 Miscellaneous Information 1 ea NOTE XX ; Start 07/30/18 at 20:00 Glucose (Glutose) 15 gm Q15M PRN PO DECREASED GLUCOSE; Start 07/30/18 at 20:00 Glucose (Glutose) 22.5 gm Q15M PRN PO DECREASED GLUCOSE; Start 07/30/18 at 20:00 Dextrose (D50w Syringe) 25 ml Q15M PRN IV DECREASED GLUCOSE; Start 07/30/18 at 20:00 Dextrose (D50w Syringe) 50 ml Q15M PRN IV DECREASED GLUCOSE; Start 07/30/18 at 20:00 Glucagon (Glucagen) 1 mg Q15M PRN IM DECREASED GLUCOSE; Start 07/30/18 at 20:00 Glucose (Glutose) 15 gm Q15M PRN BUCCAL DECREASED GLUCOSE; Start 07/30/18 at 20:00 Dextrose 1,000 ml @ 50 mls/hr Q20H IV Last administered on 07/31/18at 09:03; Admin Dose 50 MLS/HR; Start 07/31/18 at 08:00 Aspirin (Aspirin) 81 mg DAILY PO ; Start 08/01/18 at 09:00 Carvedilol (Coreg) 3.125 mg BID GTB ; Start 07/31/18 at 21:00 Allergies: Coded Allergies: No Known Allergy (Unverified , 07/30/18) Past Surgical History Past Surgical Hx: other Social History Alcohol Use: rarely Smoking Status: Never smoker Drug Use: none Exam/Review of Systems Exam Vitals Vital Signs Date Temp Pulse Resp B/P (MAP) Pulse Ox O2 O2 Flow FiO2 Time Delivery Rate 07/31/18 80 08:00 07/31/18 28 92/62 (72) 100 BIPAP 06:00 07/31/18 40 05:24 07/31/18 98.6 04:00 07/30/18 5.0 18:29 Intake and Output 07/30/18 07/30/18 07/31/18 1515:00 23:00 07:00 IntakeIntake Total 8 ml 353.5 ml OutputOutput Total 1260 ml BalanceBalance 8 ml -906.5 ml Exam H EENT exam; supple neck, positive JVD. No lymphadenopathy. Midline trachea. No thyromegaly. On BiPAP. Chest exam; bilateral crackles. S1-S2 audible, no murmurs. Regular rhythm. Abdomen exam; soft, no organomegaly. Nontender. Bowel is audible. Extremity exam; peripheral edema. [employer] exam; no focal deficit. Results Result Diagram: 07/31/1845107/31/18451 Results 24hrs Laboratory Tests Test 07/30/18 14:41 07/30/18 14:42 07/30/18 15:30 07/30/18 16:02 POC Venous 2.0 Lactate White Blood 9.8 Count Red Blood Count 3.46 L Hemoglobin 10.3 L Hematocrit 32.2 L Mean Corpuscular 93.1 Volume Mean Corpuscular 29.8 Hemoglobin Mean Corpuscular 32.0 Hemoglobin Jenna nt Red Cell 12.9 Distribution Width Platelet Count 239 # Mean Platelet 12.3 H Volume Immature 0.500 H Granulocytes % Neutrophils % 79.9 H Lymphocytes % 11.7 L Monocytes % 7.4 Eosinophils % 0.3 Basophils % 0.2 Nucleated Red 0.2 H Blood Cells % Immature 0.050 H Granulocytes # Neutrophils # 7.8 H Lymphocytes # 1.1 Monocytes # 0.7 Eosinophils # 0.0 Basophils # 0.0 Nucleated Red 0.0 Blood Cells # Prothrombin Time 14.6 Prothrombin Time 1.1 Ratio INR 1.13 International Normalized Ratio Activated 26.1 Partial Thrombop last Time Sodium Level 138 Potassium Level 4.7 Chloride Level 107 Carbon Dioxide 15 L Level Anion Gap 16 H Blood Urea 91 H Nitrogen Creatinine 3.02 H Est Glomerular 16 L Filtrat Rate mL/min Glucose Level 183 Calcium Level 9.5 Total Bilirubin 0.6 Direct Bilirubin 0.00 Indirect 0.6 Bilirubin Aspartate Amino 42 Transf (AST/SGOT ) Alanine 34 Aminotransferase (ALT/SGPT) Alkaline 147 H Phosphatase Troponin I 26.500 *H B-Type 97713 H Natriuretic Peptide Total Protein 8.0 Albumin 4.1 Globulin 3.90 H Albumin/Globulin 1.05 Ratio Urine Color ALEX Urine Clarity CLOUDY A Urine pH 6.0 Urine Specific 1.019 [place] Urine Ketones NEGATIVE Urine Nitrite NEGATIVE Urine Bilirubin NEGATIVE Urine 1+ H Urobilinogen Urine Leukocyte NEGATIVE Esterase Urine 2 Microscopic RBC Urine 5 Microscopic WBC Urine Squamous MODERATE Epithelial Cells Urine Amorphous FEW A Crystals Urine Bacteria MANY A Urine Hemoglobin 1+ H Urine Glucose NEGATIVE Urine Total 2+ H Protein Bedside Urine pH 6.5 (LAB) Bedside Urine 3+ H Protein (LAB) Bedside Urine Negative Glucose (UA) Bedside Urine Negative Ketones (LAB) Bedside Urine Trace-lysed H Blood Bedside Urine Negative Nitrite (LAB) Bedside Urine Negative Leukocyte Estera se (L Test 07/30/18 16:32 07/30/18 18:22 07/30/18 19:22 07/30/18 23:52 Blood Gas Blood arterial Specimen Source Arterial Blood 07/30/2018 4:50:2 Date Drawn 1 PM Arterial Blood 7.387 pH (Temp corrected) Arterial Blood 24.2 L pCO2 (Temp correct) Arterial Blood 51.6 *L pO2 (Temp corrected) Arterial Blood 14.2 L HCO3 Arterial Blood -9.2 L Base Excess Arterial Blood 84.0 L Oxygen Saturatio n [place] Test ACCEPTAB Arterial Blood Right Radial Gas Puncture Site Arterial 0.3 Blood Carboxyhem oglobin Arterial Blood 0.3 Methemoglobin Blood Gas A-a O2 177.0 H Differential Oxyhemoglobin 83.5 L Percent Blood Gas 37.0 Temperature Blood Gas NASAL CANNULA Modality FiO2 36.[address] OLSON Critical Value Read Back Blood Gas RT Notified Whom Blood Gas 07/30/2018 4:57:0 Notified Time 2 PM Lactic Acid 1.7 Level Prothrombin Time 15.1 H Prothrombin Time 1.2 Ratio INR 1.18 International Normalized Ratio Activated 25.3 Partial Thrombop last Time Bedside Glucose 160 Test 07/31/18 00:15 07/31/18 01:17 07/31/18 01:22 07/31/18 04:52 Troponin I 24.300 *H 23.400 *H Activated 81.3 *H Partial Thrombop last Time Bedside Glucose 160 White Blood 9.5 Count Red Blood Count 3.20 L Hemoglobin 9.7 L Hematocrit 30.1 L Mean Corpuscular 94.1 Volume Mean Corpuscular 30.3 Hemoglobin Mean Corpuscular 32.2 Hemoglobin Jenna nt Red Cell 13.0 Distribution Width Platelet Count 211 Mean Platelet 12.8 H Volume Immature 0.400 Granulocytes % Neutrophils % 75.9 Lymphocytes % 13.0 L Monocytes % 9.8 Eosinophils % 0.6 Basophils % 0.3 Nucleated Red 0.0 Blood Cells % Immature 0.040 H Granulocytes # Neutrophils # 7.2 Lymphocytes # 1.2 Monocytes # 0.9 Eosinophils # 0.1 Basophils # 0.0 Nucleated Red 0.0 Blood Cells # Sodium Level 147 H Potassium Level 4.1 Chloride Level 117 H Carbon Dioxide 14 L Level Anion Gap 16 H Blood Urea 98 H Nitrogen Creatinine 2.96 H Est Glomerular 16 L Filtrat Rate mL/min Glucose Level 139 # Hemoglobin A1c 6.4 H Calcium Level 9.3 Phosphorus Level 5.7 H Magnesium Level 2.4 Triglycerides 110 Level Cholesterol 198 Level LDL Cholesterol, 138 Calculated HDL Cholesterol 38 Cholesterol/HDL 5.2 Ratio Test 07/31/18 05:29 07/31/18 07:00 07/31/18 08:01 07/31/18 09:12 Bedside Glucose 121 128 Blood Gas Blood arterial Specimen Source Arterial Blood 07/31/2018 7:25:1 Date Drawn 4 AM Arterial Blood 7.368 pH (Temp corrected) Arterial Blood 28.5 L pCO2 (Temp correct) Arterial Blood 84.7 pO2 (Temp corrected) Arterial Blood 16.0 L HCO3 Arterial Blood -8.1 L Base Excess Arterial Blood 95.5 Oxygen Saturatio n [place] Test N/A Arterial Blood LB Gas Puncture Site Arterial 0.2 Blood Carboxyhem oglobin Arterial Blood 0.3 Methemoglobin Blood Gas A-a O2 167.7 H Differential Oxyhemoglobin 95.0 Percent Blood Gas 37.0 Temperature Blood Gas 16.0 Respiration Rate Blood Gas Actual 26 Respiration Rate Blood Gas MASK - BIPAP Modality FiO2 40.0 Blood Gas 10 Pressure Support Blood Gas 15/5 IPAP/EPAP Ratio Blood Gas TM Notified Whom Blood Gas 07/31/2018 7:39:0 Notified Time 9 AM Activated 52.3 H Partial Thrombop last Time Medications Medication Current Medications IV Flush (NS 3 ml) 3 ml PER PROTOCOL IV ; Start 07/30/18 at 19:30 Ondansetron HCl (Zofran Inj) 4 mg Q6H PRN IV NAUSEA/VOMITING; Start 07/30/18 at 19:30 Acetaminophen (Tylenol Tab) 650 mg Q6H PRN PO .PAIN 1-3 OR TEMP; Start 07/30/18 at 19:30 Acetaminophen/ Hydrocodone Bitart ([place] (5/325)) 1 tab Q6H PRN PO .MOD PAIN 4- 6; Start 07/30/18 at 19:30 Morphine Sulfate (morphine) 2 mg Q4H PRN IV .SEVERE PAIN 7-10; Start 07/30/18 at 19:30 Docusate Sodium (Colace) 100 mg Q12H PRN PO .CONSTIPATION; Start 07/30/18 at 19:30 Zolpidem Tartrate (Ambien) 5 mg QHS PRN PO .INSOMNIA; Start 07/30/18 at 19:30 Heparin Sodium (Porcine) (Heparin (1000 Units/ml)) 3,900 unit PER PROTOCOL PRN IV aPTT<47; Start 07/30/18 at 19:30 Heparin Sodium (Porcine) 250 ml @ 8 mls/hr PER PROTOCOL IV Last administered on 07/30/18at 21:52; Admin Dose 8 MLS/HR; Start 07/30/18 at 19:30 Insulin Aspart (Novolog Insulin Pen) NOVOLOG *MILD* ALGORI... Q4 SC Last administered on 07/31/18at 01:28; Admin Dose 1 UNIT; Start 07/30/18 at 21:00 Azithromycin 250 ml @ 250 mls/hr Q24H IVPB Last administered on 07/31/18at 00:37; Admin Dose 250 MLS/HR; Start 07/30/18 at 19:30 Atorvastatin Calcium (Lipitor) 80 mg HS PO ; Start 07/30/18 at 21:00 Insulin Glargine (Lantus) 7 units DAILY@2000 SC ; Start 07/30/18 at 20:00 Miscellaneous Information 1 ea NOTE XX ; Start 07/30/18 at 20:00 Glucose (Glutose) 15 gm Q15M PRN PO DECREASED GLUCOSE; Start 07/30/18 at 20:00 Glucose (Glutose) 22.5 gm Q15M PRN PO DECREASED GLUCOSE; Start 07/30/18 at 20:00 Dextrose (D50w Syringe) 25 ml Q15M PRN IV DECREASED GLUCOSE; Start 07/30/18 at 20:00 Dextrose (D50w Syringe) 50 ml Q15M PRN IV DECREASED GLUCOSE; Start 07/30/18 at 20:00 Glucagon (Glucagen) 1 mg Q15M PRN IM DECREASED GLUCOSE; Start 07/30/18 at 20:00 Glucose (Glutose) 15 gm Q15M PRN BUCCAL DECREASED GLUCOSE; Start 07/30/18 at 20:00 Dextrose 1,000 ml @ 50 mls/hr Q20H IV Last administered on 07/31/18at 09:03; Admin Dose 50 MLS/HR; Start 07/31/18 at 08:00 Aspirin (Aspirin) 81 mg DAILY PO ; Start 08/01/18 at 09:00 Carvedilol (Coreg) 3.125 mg BID GTB ; Start 07/31/18 at 21:00 JUN MONTES Jul 31, 2018 09:36
[2018-07-31] MEDS: CEFEPIME 1GM/50 ML (PMX) 50 ML IVPB SCH (10:53)
--- NOTE | 2018-07-31 15:01 | PN ---
Date/Time of Note Date/Time of Note DATE: 07/31/18 TIME: 14:47 Assessment/Plan VTE Prophylaxis Risk score (from Ns)>0 risk: 3 SCD applied (from Ns): Yes Pharmacological prophylaxis: heparin Lines/Catheters IV Catheter Type (from Nrsg): Peripheral IV Assessment/Plan Hospital Course 1. Non-STEMI Heparin drip Lipitor Cardiology consultation with Dr. Reynaga appreciated, patient was to have a heart cath today but troponins are trending down and patient is chest pain-free and in light of CKD with potential of exacerbation of renal failure heart cath has been held for now A1c and lipid profile noted 2. Acute respiratory failure secondary to edema and/or pneumonia-improved No evidence of sepsis but will treat empirically for pneumonia, consider discontinuation in the next several days Patient on BiPAP Pulmonology consultation Cont Cefepime 3. Acute on chronic kidney disease Patient's renal function continues to decline Nephrology consultation appreciated 4. Anion gap metabolic acidosis with respiratory compensation secondary to renal failure Nephrology consultation obtained Lactic acid is normal, UA negative for ketones 5. Diabetes Sliding scale and Lantus 6. Normocytic anemia secondary to chronic disease and renal failure Monitor Prophylaxis: Heparin Result Diagram: 07/31/18 0452 07/31/18 045 Results 24hrs Laboratory Tests Test 07/30/18 15:30 07/30/18 16:02 07/30/18 16:32 07/30/18 18:22 Urine Color ALEX Urine Clarity CLOUDY A Urine pH 6.0 Urine Specific 1.019 [place] Urine Ketones NEGATIVE Urine Nitrite NEGATIVE Urine Bilirubin NEGATIVE Urine 1+ H Urobilinogen Urine Leukocyte NEGATIVE Esterase Urine 2 Microscopic RBC Urine 5 Microscopic WBC Urine Squamous MODERATE Epithelial Cells Urine Amorphous FEW A Crystals Urine Bacteria MANY A Urine Hemoglobin 1+ H Urine Glucose NEGATIVE Urine Total 2+ H Protein Bedside Urine pH 6.5 (LAB) Bedside Urine 3+ H Protein (LAB) Bedside Urine Negative Glucose (UA) Bedside Urine Negative Ketones (LAB) Bedside Urine Trace-lysed H Blood Bedside Urine Negative Nitrite (LAB) Bedside Urine Negative Leukocyte Estera se (L Blood Gas Blood arterial Specimen Source Arterial Blood 07/30/2018 4:50:2 Date Drawn 1 PM Arterial Blood 7.387 pH (Temp corrected) Arterial Blood 24.2 L pCO2 (Temp correct) Arterial Blood 51.6 *L pO2 (Temp corrected) Arterial Blood 14.2 L HCO3 Arterial Blood -9.2 L Base Excess Arterial Blood 84.0 L Oxygen Saturatio n [place] Test ACCEPTAB Arterial Blood Right Radial Gas Puncture Site Arterial 0.3 Blood Carboxyhem oglobin Arterial Blood 0.3 Methemoglobin Blood Gas A-a O2 177.0 H Differential Oxyhemoglobin 83.5 L Percent Blood Gas 37.0 Temperature Blood Gas NASAL CANNULA Modality FiO2 36.[address] OLSON Critical Value Read Back Blood Gas RT Notified Whom Blood Gas 07/30/2018 4:57:0 Notified Time 2 PM Lactic Acid 1.7 Level Test 07/30/18 19:22 07/30/18 23:52 07/31/18 00:15 07/31/18 01:17 Prothrombin Time 15.1 H Prothrombin Time 1.2 Ratio INR 1.18 International Normalized Ratio Activated 25.3 81.3 *H Partial Thrombop last Time Bedside Glucose 160 Troponin I 24.300 *H Test 07/31/18 01:22 07/31/18 04:52 07/31/18 05:29 07/31/18 07:00 Bedside Glucose 160 121 White Blood 9.5 Count Red Blood Count 3.20 L Hemoglobin 9.7 L Hematocrit 30.1 L Mean Corpuscular 94.1 Volume Mean Corpuscular 30.3 Hemoglobin Mean Corpuscular 32.2 Hemoglobin Jenna nt Red Cell 13.0 Distribution Width Platelet Count 211 Mean Platelet 12.8 H Volume Immature 0.400 Granulocytes % Neutrophils % 75.9 Lymphocytes % 13.0 L Monocytes % 9.8 Eosinophils % 0.6 Basophils % 0.3 Nucleated Red 0.0 Blood Cells % Immature 0.040 H Granulocytes # Neutrophils # 7.2 Lymphocytes # 1.2 Monocytes # 0.9 Eosinophils # 0.1 Basophils # 0.0 Nucleated Red 0.0 Blood Cells # Sodium Level 147 H Potassium Level 4.1 Chloride Level 117 H Carbon Dioxide 14 L Level Anion Gap 16 H Blood Urea 98 H Nitrogen Creatinine 2.96 H Est Glomerular 16 L Filtrat Rate mL/min Glucose Level 139 # Hemoglobin A1c 6.4 H Calcium Level 9.3 Phosphorus Level 5.7 H Magnesium Level 2.4 Troponin I 23.400 *H Triglycerides 110 Level Cholesterol 198 Level LDL Cholesterol, 138 Calculated HDL Cholesterol 38 Cholesterol/HDL 5.2 Ratio Blood Gas Blood arterial Specimen Source Arterial Blood 07/31/2018 7:25:1 Date Drawn 4 AM Arterial Blood 7.368 pH (Temp corrected) Arterial Blood 28.5 L pCO2 (Temp correct) Arterial Blood 84.7 pO2 (Temp corrected) Arterial Blood 16.0 L HCO3 Arterial Blood -8.1 L Base Excess Arterial Blood 95.5 Oxygen Saturatio n [place] Test N/A Arterial Blood LB Gas Puncture Site Arterial 0.2 Blood Carboxyhem oglobin Arterial Blood 0.3 Methemoglobin Blood Gas A-a O2 167.7 H Differential Oxyhemoglobin 95.0 Percent Blood Gas 37.0 Temperature Blood Gas 16.0 Respiration Rate Blood Gas Actual 26 Respiration Rate Blood Gas MASK - BIPAP Modality FiO2 40.0 Blood Gas 10 Pressure Support Blood Gas 15/5 IPAP/EPAP Ratio Blood Gas TM Notified Whom Blood Gas 07/31/2018 7:39:0 Notified Time 9 AM Test 07/31/18 08:01 07/31/18 09:12 07/31/18 12:00 07/31/18 13:49 Activated 52.3 H Partial Thrombop last Time Bedside Glucose 128 150 Blood Gas Blood arterial Specimen Source Arterial Blood 07/31/2018 11:55: Date Drawn 19 AM Arterial Blood 7.358 pH (Temp corrected) Arterial Blood 28.8 L pCO2 (Temp correct) Arterial Blood 63.4 L pO2 (Temp corrected) Arterial Blood 15.8 L HCO3 Arterial Blood -8.4 L Base Excess Arterial Blood 90.3 L Oxygen Saturatio n [place] Test ACCEPTAB Arterial Blood Right Radial Gas Puncture Site Arterial 0.3 Blood Carboxyhem oglobin Arterial Blood 0.3 Methemoglobin Blood Gas A-a O2 138.3 H Differential Oxyhemoglobin 89.8 L Percent Blood Gas 37.0 Temperature Blood Gas NASAL CANNULA Modality FiO2 33.0 Blood Gas TM Notified Whom Blood Gas 07/31/2018 12:09: Notified Time 51 PM Subjective 24 Hr Interval Summary Constitutional: no complaints Exam/Review of Systems Exam Vitals Vital Signs Date Temp Pulse Resp B/P (MAP) Pulse Ox O2 O2 Flow FiO2 Time Delivery Rate 07/31/18 87 22 103/71 93 Nasal 13:00 (82) Cannula 07/31/18 98.5 12:00 07/31/18 4.0 12:00 07/31/18 40 05:24 Intake and Output 07/30/18 07/30/18 07/31/18 1515:00 23:00 07:00 IntakeIntake Total 8 ml 361.0 ml OutputOutput Total 1260 ml BalanceBalance 8 ml -899.0 ml Constitutional: alert, oriented Respiratory: clear to auscultation Cardiovascular: regular rate and rhythm Gastrointestinal: soft; No distended Musculoskeletal: nl extremities to inspection Results Results 24hrs Laboratory Tests Test 07/30/18 15:30 07/30/18 16:02 07/30/18 16:32 07/30/18 18:22 Urine Color ALEX Urine Clarity CLOUDY A Urine pH 6.0 Urine Specific 1.019 [place] Urine Ketones NEGATIVE Urine Nitrite NEGATIVE Urine Bilirubin NEGATIVE Urine 1+ H Urobilinogen Urine Leukocyte NEGATIVE Esterase Urine 2 Microscopic RBC Urine 5 Microscopic WBC Urine Squamous MODERATE Epithelial Cells Urine Amorphous FEW A Crystals Urine Bacteria MANY A Urine Hemoglobin 1+ H Urine Glucose NEGATIVE Urine Total 2+ H Protein Bedside Urine pH 6.5 (LAB) Bedside Urine 3+ H Protein (LAB) Bedside Urine Negative Glucose (UA) Bedside Urine Negative Ketones (LAB) Bedside Urine Trace-lysed H Blood Bedside Urine Negative Nitrite (LAB) Bedside Urine Negative Leukocyte Estera se (L Blood Gas Blood arterial Specimen Source Arterial Blood 07/30/2018 4:50:2 Date Drawn 1 PM Arterial Blood 7.387 pH (Temp corrected) Arterial Blood 24.2 L pCO2 (Temp correct) Arterial Blood 51.6 *L pO2 (Temp corrected) Arterial Blood 14.2 L HCO3 Arterial Blood -9.2 L Base Excess Arterial Blood 84.0 L Oxygen Saturatio n [place] Test ACCEPTAB Arterial Blood Right Radial Gas Puncture Site Arterial 0.3 Blood Carboxyhem oglobin Arterial Blood 0.3 Methemoglobin Blood Gas A-a O2 177.0 H Differential Oxyhemoglobin 83.5 L Percent Blood Gas 37.0 Temperature Blood Gas NASAL CANNULA Modality FiO2 36.[address] OLSON Critical Value Read Back Blood Gas RT Notified Whom Blood Gas 07/30/2018 4:57:0 Notified Time 2 PM Lactic Acid 1.7 Level Test 07/30/18 19:22 07/30/18 23:52 07/31/18 00:15 07/31/18 01:17 Prothrombin Time 15.1 H Prothrombin Time 1.2 Ratio INR 1.18 International Normalized Ratio Activated 25.3 81.3 *H Partial Thrombop last Time Bedside Glucose 160 Troponin I 24.300 *H Test 07/31/18 01:22 07/31/18 04:52 07/31/18 05:29 07/31/18 07:00 Bedside Glucose 160 121 White Blood 9.5 Count Red Blood Count 3.20 L Hemoglobin 9.7 L Hematocrit 30.1 L Mean Corpuscular 94.1 Volume Mean Corpuscular 30.3 Hemoglobin Mean Corpuscular 32.2 Hemoglobin Jenna nt Red Cell 13.0 Distribution Width Platelet Count 211 Mean Platelet 12.8 H Volume Immature 0.400 Granulocytes % Neutrophils % 75.9 Lymphocytes % 13.0 L Monocytes % 9.8 Eosinophils % 0.6 Basophils % 0.3 Nucleated Red 0.0 Blood Cells % Immature 0.040 H Granulocytes # Neutrophils # 7.2 Lymphocytes # 1.2 Monocytes # 0.9 Eosinophils # 0.1 Basophils # 0.0 Nucleated Red 0.0 Blood Cells # Sodium Level 147 H Potassium Level 4.1 Chloride Level 117 H Carbon Dioxide 14 L Level Anion Gap 16 H Blood Urea 98 H Nitrogen Creatinine 2.96 H Est Glomerular 16 L Filtrat Rate mL/min Glucose Level 139 # Hemoglobin A1c 6.4 H Calcium Level 9.3 Phosphorus Level 5.7 H Magnesium Level 2.4 Troponin I 23.400 *H Triglycerides 110 Level Cholesterol 198 Level LDL Cholesterol, 138 Calculated HDL Cholesterol 38 Cholesterol/HDL 5.2 Ratio Blood Gas Blood arterial Specimen Source Arterial Blood 07/31/2018 7:25:1 Date Drawn 4 AM Arterial Blood 7.368 pH (Temp corrected) Arterial Blood 28.5 L pCO2 (Temp correct) Arterial Blood 84.7 pO2 (Temp corrected) Arterial Blood 16.0 L HCO3 Arterial Blood -8.1 L Base Excess Arterial Blood 95.5 Oxygen Saturatio n [place] Test N/A Arterial Blood LB Gas Puncture Site Arterial 0.2 Blood Carboxyhem oglobin Arterial Blood 0.3 Methemoglobin Blood Gas A-a O2 167.7 H Differential Oxyhemoglobin 95.0 Percent Blood Gas 37.0 Temperature Blood Gas 16.0 Respiration Rate Blood Gas Actual 26 Respiration Rate Blood Gas MASK - BIPAP Modality FiO2 40.0 Blood Gas 10 Pressure Support Blood Gas 15/5 IPAP/EPAP Ratio Blood Gas TM Notified Whom Blood Gas 07/31/2018 7:39:0 Notified Time 9 AM Test 07/31/18 08:01 07/31/18 09:12 07/31/18 12:00 07/31/18 13:49 Activated 52.3 H Partial Thrombop last Time Bedside Glucose 128 150 Blood Gas Blood arterial Specimen Source Arterial Blood 07/31/2018 11:55: Date Drawn 19 AM Arterial Blood 7.358 pH (Temp corrected) Arterial Blood 28.8 L pCO2 (Temp correct) Arterial Blood 63.4 L pO2 (Temp corrected) Arterial Blood 15.8 L HCO3 Arterial Blood -8.4 L Base Excess Arterial Blood 90.3 L Oxygen Saturatio n [place] Test ACCEPTAB Arterial Blood Right Radial Gas Puncture Site Arterial 0.3 Blood Carboxyhem oglobin Arterial Blood 0.3 Methemoglobin Blood Gas A-a O2 138.3 H Differential Oxyhemoglobin 89.8 L Percent Blood Gas 37.0 Temperature Blood Gas NASAL CANNULA Modality FiO2 33.0 Blood Gas TM Notified Whom Blood Gas 07/31/2018 12:09: Notified Time 51 PM Medications Medication Current Medications IV Flush (NS 3 ml) 3 ml PER PROTOCOL IV ; Start 07/30/18 at 19:30 Ondansetron HCl (Zofran Inj) 4 mg Q6H PRN IV NAUSEA/VOMITING; Start 07/30/18 at 19:30 Acetaminophen (Tylenol Tab) 650 mg Q6H PRN PO .PAIN 1-3 OR TEMP; Start 07/30/18 at 19:30 Acetaminophen/ Hydrocodone Bitart ([place] (5/325)) 1 tab Q6H PRN PO .MOD PAIN 4- 6; Start 07/30/18 at 19:30 Morphine Sulfate (morphine) 2 mg Q4H PRN IV .SEVERE PAIN 7-10; Start 07/30/18 at 19:30 Docusate Sodium (Colace) 100 mg Q12H PRN PO .CONSTIPATION; Start 07/30/18 at 19:30 Zolpidem Tartrate (Ambien) 5 mg QHS PRN PO .INSOMNIA; Start 07/30/18 at 19:30 Heparin Sodium (Porcine) (Heparin (1000 Units/ml)) 3,900 unit PER PROTOCOL PRN IV aPTT<47; Start 07/30/18 at 19:30 Heparin Sodium (Porcine) 250 ml @ 8 mls/hr PER PROTOCOL IV Last administered on 07/30/18at 21:52; Admin Dose 8 MLS/HR; Start 07/30/18 at 19:30 Insulin Aspart (Novolog Insulin Pen) NOVOLOG *MILD* ALGORI... Q4 SC Last administered on 07/31/18at 13:53; Admin Dose 1 UNIT; Start 07/30/18 at 21:00 Azithromycin 250 ml @ 250 mls/hr Q24H IVPB Last administered on 07/31/18at 00:37; Admin Dose 250 MLS/HR; Start 07/30/18 at 19:30 Atorvastatin Calcium (Lipitor) 80 mg HS PO ; Start 07/30/18 at 21:00 Insulin Glargine (Lantus) 7 units DAILY@2000 SC ; Start 07/30/18 at 20:00 Miscellaneous Information 1 ea NOTE XX ; Start 07/30/18 at 20:00 Glucose (Glutose) 15 gm Q15M PRN PO DECREASED GLUCOSE; Start 07/30/18 at 20:00 Glucose (Glutose) 22.5 gm Q15M PRN PO DECREASED GLUCOSE; Start 07/30/18 at 20:00 Dextrose (D50w Syringe) 25 ml Q15M PRN IV DECREASED GLUCOSE; Start 07/30/18 at 20:00 Dextrose (D50w Syringe) 50 ml Q15M PRN IV DECREASED GLUCOSE; Start 07/30/18 at 20:00 Glucagon (Glucagen) 1 mg Q15M PRN IM DECREASED GLUCOSE; Start 07/30/18 at 20:00 Glucose (Glutose) 15 gm Q15M PRN BUCCAL DECREASED GLUCOSE; Start 07/30/18 at 20: 00 Aspirin (Aspirin) 81 mg DAILY PO ; Start 08/01/18 at 09:00 Carvedilol (Coreg) 3.125 mg BID GTB ; Start 07/31/18 at 21:00 Cefepime HCl 50 ml @ 100 mls/hr Q24H IVPB Last administered on 07/31/18at 10:53; Admin Dose 100 MLS/HR; Start 07/31/18 at 10:00 VÍCTOR MIR Jul 31, 2018 15:00
[2018-07-31] MEDS: HEPARIN 25000 UNITS/250 ML 250 ML IV SCH ×2 (18:13→23:30)
[2018-07-31] MEDS: ATORVASTATIN 80 MG TAB PO SCH (22:15)
[2018-07-31] MEDS ORDERED: INSULIN ASPART [NOVOLOG] 3 ML PEN SC SCH (23:00)
[2018-08-01] VITALS (12 sets, daily range): BP systolic 91–111; BP diastolic 62–72; PULSE 69–97; RESP 16–19
[2018-08-01] MEDS ORDERED: ACETYLCYSTEINE 20% 4 ML VIAL NEB PRN (00:30)
[2018-08-01] MEDS ORDERED: ALBUTEROL/IPRATROPIUM (NEB) 3 ML AMP HHN PRN (00:30)
[2018-08-01] MEDS: HEPARIN 25000 UNITS/250 ML 250 ML IV SCH ×3 (01:36→23:23)
[2018-08-01] MEDS: Insulin NOVOLOG SS MILD Algorithm (SS with meals and bedtime) SC SCH ×4 (07:47→20:49)
[2018-08-01] MEDS ORDERED: INSULIN ASPART [NOVOLOG] 3 ML PEN SC SCH (08:00)
[2018-08-01] MEDS ORDERED: FUROSEMIDE 40 MG INJ IV ONE (08:30)
[2018-08-01] MEDS: ASPIRIN 81 MG TAB PO SCH (09:02)
[2018-08-01] MEDS: CEFEPIME 1GM/50 ML (PMX) 50 ML IVPB SCH (09:22)
--- NOTE | 2018-08-01 09:24 | PN ---
DATE: 08/01/2018 SUBJECTIVE: The patient was transferred from intensive care unit to telemetry. No other acute event s noted. No hemoptysis, hematemesis or hematochezia. OBJECTIVE: VITAL SIGNS: Blood pressure is 100/70, respirations 18, pulse 82, temperature 98.0. HEENT: Head is normocephalic. NECK: Supple. HEART: Regular rate. LUNGS: Show diminished breath sounds at the base. ABDOMEN: Soft, nontender to palpation without rebound or guarding. EXTREMITIES: Negative for clubbing, cyanosis, positive edema. DERMATOLOGIC: No rashes. MUSCULOSKELETAL: No joint effusion. NEUROLOGIC: No change in exam. MEDICATIONS: The patient's medications have been reviewed. LABORATORY DATA: From 08/01/2018 was reviewed. The patient has a creatinine 2.85, BUN 53, phosphoru s 5.3. ASSESSMENT AND PLAN: 1. Nonoliguric acute kidney injury on top of chronic kidney disease with previous baseline creatinin e of 1.6 to 1.9 mg/dL. Etiology of acute kidney injury is multifactorial secondary to hemodynamics, sepsis and tubular injury. The patient's urinalysis was reviewed. The patient's renal function has improved in the last 24 hours. At this point, continue current treatment plan. Continue diuretic th erapy. Continue antibiotics. Continue to renally dose all medicines and avoid nephrotoxins. 2. Hypernatremia, improved. Continue to encourage free water intake. 3. Metabolic acidosis with respiratory compensation. Etiology is secondary to acute kidney injury. Continue to monitor bicarbonate levels. 4. Mineral bone disorder, monitor calcium and phosphorus levels. 5. Anemia. Monitor hemoglobin and hematocrit levels. 6. Acute respiratory failure. Etiology may be secondary to pneumonia and congestive heart failure. The patient is clinically improving, currently off BiPAP. Continue diuretic therapy. Continue anti biotic therapy. 7. Non-ST elevated myocardial infarction. Continue heparin drip. Follow up with cardiology. The p atient is currently at high risk for contrast-associated nephropathy given setting of acute kidney in [facility]. Monitor closely. Continue medical management. 8. Diabetes. Continue current insulin regimen. 9. Chronic kidney disease, likely due to diabetic nephropathy. The patient is currently in acute ki dney injury as stated above. Continue current treatment plan. Continue disease factor modification. Dictated By: EVERT ASTORGA/KEVIN Conf#: [id number] [facility]#: [id number] CC: OFELIA ANNE MD; VÍCTOR MIR MD;*[facility]*
--- NOTE | 2018-08-01 11:07 | CONS ---
Assessment/Plan Assessment/Plan Hospital Course (Demo Recall) IMP: 1. Acute RI-downtrending cardiac enzymes. NO chest pain 2.HTN 3.abnl ecg-IVCD 4.Renal failure 5.HL 6.DM Recc: -Tele -Continue heparin IV -Continue asa/statin high dose -Continue coreg -Will f/u Echo -ONgoing renal follow-up of creatnine, [facility] when creatnine optimized Consultation Date/Type/Reason Admit Date/Time Jul 30, 2018 at 17:20 Initial Consult Date 07/31/18 Type of Consult Cardiology Reason for Consultation Acute RI Requesting Provider: VÍCTOR MIR Date/Time of Note DATE: 08/01/18 TIME: 11:03 Exam/Review of Systems Vital Signs Vitals Vital Signs Date Temp Pulse Resp B/P (MAP) Pulse Ox O2 O2 Flow FiO2 Time Delivery Rate 08/01/18 83 08:40 08/01/18 98.0 19 100/70 93 07:10 (80) 08/01/18 Nasal 4.0 00:38 Cannula 07/31/18 40 08:10 Intake and Output 07/31/18 07/31/18 08/01/18 1515:00 23:00 07:00 IntakeIntake Total 258.5 ml 250 ml OutputOutput Total 850 ml 600 ml BalanceBalance -591.5 ml -350 ml Exam Exam Review of Systems: CONSTITUTIONAL: No fevers, chills. PULMONARY: No sob CARDIOVASCULAR: No chest pain/palpitations GASTROINTESTINAL: No nausea/vomiting. GENITOURINARY: No hematuria/dysuria. MUSCULOSKELETAL: No myagias/arthalgias. PSYCHIATRIC: The patient denies depression. NEUROLOGIC: No weakness Constitutional: alert Psych: no complaints Head: normocephalic ENMT: mucosa pink and moist Neck: supple, jvd (9 cm water) Respiratory: diminished breath sounds Cardiovascular: regular rate and rhythm Gastrointestinal: soft, non-tender Musculoskeletal: muscle tone (normal) Extremities: edema (none) Neurological: other (No focal deficits) Labs Result Diagram: 08/01/18 0506 08/01/18 0506 Results 24hrs Laboratory Tests Test 07/31/18 12:00 07/31/18 13:49 07/31/18 14:00 07/31/18 16:08 Blood Gas Blood arterial Specimen Source Arterial Blood 07/31/2018 11:55:1 Date Drawn 9 AM Arterial Blood pH 7.358 (Temp corrected) Arterial Blood 28.8 L pCO2 (Temp correct) Arterial Blood 63.4 L pO2 (Temp corrected) Arterial Blood 15.8 L HCO3 Arterial Blood -8.4 L Base Excess Arterial Blood 90.3 L Oxygen Saturation [place] Test ACCEPTAB Arterial Blood Right Radial Gas Puncture Site Arterial 0.3 Blood Carboxyhemo globin Arterial Blood 0.3 Methemoglobin Blood Gas A-a O2 138.3 H Differential Oxyhemoglobin 89.8 L Percent Blood Gas 37.0 Temperature Blood Gas NASAL CANNULA Modality FiO2 33.0 Blood Gas TM Notified Whom Blood Gas 07/31/2018 12:09:5 Notified Time 1 PM Bedside Glucose 150 Urine Color YELLOW Urine Clarity CLOUDY A Urine pH 5.0 Urine Specific 1.010 [place] Urine Ketones NEGATIVE Urine Nitrite NEGATIVE Urine Bilirubin NEGATIVE Urine NEGATIVE Urobilinogen Urine Leukocyte 2+ H Esterase Urine Microscopic 77 H RBC Urine Microscopic 32 H WBC Urine Squamous FEW Epithelial Cells Urine Amorphous FEW A Crystals Urine Bacteria FEW A Urine Mucus FEW A Urine Hemoglobin 3+ H Urine Random 28.12 Creatinine Urine Random 80 Sodium Urine Glucose NEGATIVE Urine Total 62.0 H Protein Activated 45.5 H Partial Thrombopl ast Time Test 07/31/18 16:33 07/31/18 21:04 08/01/18 00:03 08/01/18 01:13 Bedside Glucose 138 187 162 Activated 123.3 *H Partial Thrombopl ast Time Test 08/01/18 05:06 08/01/18 07:45 08/01/18 08:13 White Blood Count 10.4 Red Blood Count 3.21 L Hemoglobin 9.7 L Hematocrit 30.2 L Mean Corpuscular 94.1 Volume Mean Corpuscular 30.2 Hemoglobin Mean Corpuscular 32.1 Hemoglobin Concen t Red Cell 13.2 Distribution Width Platelet Count 224 Mean Platelet 12.3 H Volume Immature 0.800 H Granulocytes % Neutrophils % 84.5 H Lymphocytes % 7.4 L Monocytes % 6.9 Eosinophils % 0.2 Basophils % 0.2 Nucleated Red 0.3 H Blood Cells % Immature 0.080 H Granulocytes # Neutrophils # 8.8 H Lymphocytes # 0.8 Monocytes # 0.7 Eosinophils # 0.0 Basophils # 0.0 Nucleated Red 0.0 Blood Cells # Sodium Level 140 Potassium Level 3.7 Chloride Level 110 Carbon Dioxide 17 L Level Anion Gap 13 Blood Urea 53 #H Nitrogen Creatinine 2.84 H Est Glomerular 17 L Filtrat Rate mL/min Glucose Level 173 Calcium Level 8.9 Phosphorus Level 5.3 H Magnesium Level 2.2 Bedside Glucose 172 Activated 71.4 *H Partial Thrombopl ast Time Medications Medications Current Medications IV Flush (NS 3 ml) 3 ml PER PROTOCOL IV ; Start 07/30/18 at 19:30 Ondansetron HCl (Zofran Inj) 4 mg Q6H PRN IV NAUSEA/VOMITING; Start 07/30/18 at 19:30 Acetaminophen (Tylenol Tab) 650 mg Q6H PRN PO .PAIN 1-3 OR TEMP Last administered on 08/01/18at 00:02; Admin Dose 325 MG; Start 07/30/18 at 19:30 Acetaminophen/ Hydrocodone Bitart ([place] (5/325)) 1 tab Q6H PRN PO .MOD PAIN 4- 6; Start 07/30/18 at 19:30 Morphine Sulfate (morphine) 2 mg Q4H PRN IV .SEVERE PAIN 7-10; Start 07/30/18 at 19:30 Docusate Sodium (Colace) 100 mg Q12H PRN PO .CONSTIPATION; Start 07/30/18 at 19:30 Zolpidem Tartrate (Ambien) 5 mg QHS PRN PO .INSOMNIA; Start 07/30/18 at 19:30 Heparin Sodium (Porcine) (Heparin (1000 Units/ml)) 3,900 unit PER PROTOCOL PRN IV aPTT<47 Last administered on 07/31/18at 18:12; Admin Dose 3,900 UNIT; Start 07/30/18 at 19:30 Heparin Sodium (Porcine) 250 ml @ 8 mls/hr PER PROTOCOL IV Last administered on 08/01/18at 09:26; Admin Dose 9 MLS/HR; Start 07/30/18 at 19:30 Azithromycin 250 ml @ 250 mls/hr Q24H IVPB Last administered on 07/31/18at 18:14; Admin Dose 250 MLS/HR; Start 07/30/18 at 19:30 Atorvastatin Calcium (Lipitor) 80 mg HS PO Last administered on 07/31/18at 22:15; Admin Dose 80 MG; Start 07/30/18 at 21:00 Insulin Glargine (Lantus) 7 units DAILY@2000 SC Last administered on 07/31/18at 22:40; Admin Dose 7 UNITS; Start 07/30/18 at 20:00 Miscellaneous Information 1 ea NOTE XX ; Start 07/30/18 at 20:00 Glucose (Glutose) 15 gm Q15M PRN PO DECREASED GLUCOSE; Start 07/30/18 at 20:00 Glucose (Glutose) 22.5 gm Q15M PRN PO DECREASED GLUCOSE; Start 07/30/18 at 20:00 Dextrose (D50w Syringe) 25 ml Q15M PRN IV DECREASED GLUCOSE; Start 07/30/18 at 20:00 Dextrose (D50w Syringe) 50 ml Q15M PRN IV DECREASED GLUCOSE; Start 07/30/18 at 20:00 Glucagon (Glucagen) 1 mg Q15M PRN IM DECREASED GLUCOSE; Start 07/30/18 at 20:00 Glucose (Glutose) 15 gm Q15M PRN BUCCAL DECREASED GLUCOSE; Start 07/30/18 at 2 0:00 Aspirin (Aspirin) 81 mg DAILY PO Last administered on 08/01/18at 09:02; Admin Dose 81 MG; Start 08/01/18 at 09:00 Carvedilol (Coreg) 3.125 mg BID GTB Last administered on 08/01/18at 09:03; Admin Dose 3.125 MG; Start 07/31/18 at 21:00 Cefepime HCl 50 ml @ 100 mls/hr Q24H IVPB Last administered on 08/01/18at 09:22; Admin Dose 100 MLS/HR; Start 07/31/18 at 10:00 Insulin Aspart (Novolog Insulin Pen) (Adult SC Insulin - Mild Algorithm)... AC MEALS AND BEDTIME SC Last administered on 08/01/18at 07:47; Admin Dose 1 UNIT; Start 08/01/18 at 07:00 Albuterol/ Ipratropium (Duoneb) 3 ml Q4H RESP THERAPY PRN HHN SHORTNESS OF BREATH Last administered on 08/01/18at 00:36; Admin Dose 3 ML; Start 08/01/18 at 00:30 Acetylcysteine (Mucomyst) 3 ml Q6H RESP THERAPY PRN NEB SHORTNESS OF BREATH Last administered on 08/01/18at 00:36; Admin Dose 3 ML; Start 08/01/18 at 00:30 OFELIA ANNE Aug 01, 2018 11:07
--- NOTE | 2018-08-01 13:54 | PN ---
Date/Time of Note Date/Time of Note DATE: 08/01/18 TIME: 13:51 Assessment/Plan VTE Prophylaxis Risk score (from Nsg)>0 risk: 8 SCD applied (from Nsg): Yes Pharmacological prophylaxis: heparin Lines/Catheters IV Catheter Type (from Nrsg): Saline Lock Assessment/Plan Hospital Course 1. Non-STEMI Heparin drip Lipitor Cardiology consultation with Dr. Reynaga appreciated, patient was to have a heart cath but troponins trended down and patient is chest pain-free and in light of CKD with potential of exacerbation of renal failure heart cath has been held for now Plan for heart cath once renal function stabilizes A1c and lipid profile noted 2. Acute respiratory failure secondary to edema and/or pneumonia-improved No evidence of sepsis but will treat empirically for pneumonia, consider discontinuation in the next several days Patient on BiPAP Pulmonology consultation Cont Cefepime 3. Acute on chronic kidney disease Creatinine has improved Nephrology consultation appreciated 4. Anion gap metabolic acidosis with respiratory compensation secondary to renal failure Nephrology consultation appreciated Lactic acid is normal, UA negative for ketones 5. Diabetes Increase basal and start mealtime insulin, continue sliding scale 6. Normocytic anemia secondary to chronic disease and renal failure Monitor Prophylaxis: Heparin DC planning: Monitor renal function, anticipate heart cath during this hospital stay Result Diagram: 08/01/18 0506 08/01/18 0506 Results 24hrs Laboratory Tests Test 07/31/18 14:00 07/31/18 16:08 07/31/18 16:33 07/31/18 21:04 Urine Color YELLOW Urine Clarity CLOUDY A Urine pH 5.0 Urine Specific 1.010 [place] Urine Ketones NEGATIVE Urine Nitrite NEGATIVE Urine Bilirubin NEGATIVE Urine Urobilinogen NEGATIVE Urine Leukocyte 2+ H Esterase Urine Microscopic 77 H RBC Urine Microscopic 32 H WBC Urine Squamous FEW Epithelial Cells Urine Amorphous FEW A Crystals Urine Bacteria FEW A Urine Mucus FEW A Urine Hemoglobin 3+ H Urine Random 28.12 Creatinine Urine Random Sodium 80 Urine Glucose NEGATIVE Urine Total Protein 62.0 H Activated 45.5 H Partial Thromboplast Time Bedside Glucose 138 187 Test 08/01/18 00:03 08/01/18 01:13 08/01/18 05:06 08/01/18 07:45 Activated 123.3 *H Partial Thromboplast Time Bedside Glucose 162 172 White Blood Count 10.4 Red Blood Count 3.21 L Hemoglobin 9.7 L Hematocrit 30.2 L Mean Corpuscular 94.1 Volume Mean Corpuscular 30.2 Hemoglobin Mean Corpuscular 32.1 Hemoglobin Concent Red Cell 13.2 Distribution Width Platelet Count 224 Mean Platelet Volume 12.3 H Immature 0.800 H Granulocytes % Neutrophils % 84.5 H Lymphocytes % 7.4 L Monocytes % 6.9 Eosinophils % 0.2 Basophils % 0.2 Nucleated Red Blood 0.3 H Cells % Immature 0.080 H Granulocytes # Neutrophils # 8.8 H Lymphocytes # 0.8 Monocytes # 0.7 Eosinophils # 0.0 Basophils # 0.0 Nucleated Red Blood 0.0 Cells # Sodium Level 140 Potassium Level 3.7 Chloride Level 110 Carbon Dioxide Level 17 L Anion Gap 13 Blood Urea Nitrogen 53 #H Creatinine 2.84 H Est Glomerular 17 L Filtrat Rate mL/min Glucose Level 173 Calcium Level 8.9 Phosphorus Level 5.3 H Magnesium Level 2.2 Test 08/01/18 08:13 08/01/18 11:24 08/01/18 12:15 Activated 71.4 *H Partial Thromboplast Time Creatine Kinase 82 Creatine Kinase 6.6 Index Creatinine Kinase MB 5.45 H (Mass) Troponin I 14.500 *H Bedside Glucose 207 Subjective 24 Hr Interval Summary Constitutional: no complaints Exam/Review of Systems Exam Vitals Vital Signs Date Temp Pulse Resp B/P (MAP) Pulse Ox O2 O2 Flow FiO2 Time Delivery Rate 08/01/18 86 13:06 08/01/18 98.1 18 96/69 (78) 91 12:05 08/01/18 Nasal 4.0 00:38 Cannula 07/31/18 40 08:10 Intake and Output 07/31/18 07/31/18 08/01/18 1515:00 23:00 07:00 IntakeIntake Total 258.5 ml 250 ml OutputOutput Total 850 ml 600 ml BalanceBalance -591.5 ml -350 ml Constitutional: alert, oriented Respiratory: clear to auscultation Cardiovascular: regular rate and rhythm Gastrointestinal: soft; No distended Musculoskeletal: No nl extremities to inspection Results Results 24hrs Laboratory Tests Test 07/31/18 14:00 07/31/18 16:08 07/31/18 16:33 07/31/18 21:04 Urine Color YELLOW Urine Clarity CLOUDY A Urine pH 5.0 Urine Specific 1.010 [place] Urine Ketones NEGATIVE Urine Nitrite NEGATIVE Urine Bilirubin NEGATIVE Urine Urobilinogen NEGATIVE Urine Leukocyte 2+ H Esterase Urine Microscopic 77 H RBC Urine Microscopic 32 H WBC Urine Squamous FEW Epithelial Cells Urine Amorphous FEW A Crystals Urine Bacteria FEW A Urine Mucus FEW A Urine Hemoglobin 3+ H Urine Random 28.12 Creatinine Urine Random Sodium 80 Urine Glucose NEGATIVE Urine Total Protein 62.0 H Activated 45.5 H Partial Thromboplast Time Bedside Glucose 138 187 Test 08/01/18 00:03 08/01/18 01:13 08/01/18 05:06 08/01/18 07:45 Activated 123.3 *H Partial Thromboplast Time Bedside Glucose 162 172 White Blood Count 10.4 Red Blood Count 3.21 L Hemoglobin 9.7 L Hematocrit 30.2 L Mean Corpuscular 94.1 Volume Mean Corpuscular 30.2 Hemoglobin Mean Corpuscular 32.1 Hemoglobin Concent Red Cell 13.2 Distribution Width Platelet Count 224 Mean Platelet Volume 12.3 H Immature 0.800 H Granulocytes % Neutrophils % 84.5 H Lymphocytes % 7.4 L Monocytes % 6.9 Eosinophils % 0.2 Basophils % 0.2 Nucleated Red Blood 0.3 H Cells % Immature 0.080 H Granulocytes # Neutrophils # 8.8 H Lymphocytes # 0.8 Monocytes # 0.7 Eosinophils # 0.0 Basophils # 0.0 Nucleated Red Blood 0.0 Cells # Sodium Level 140 Potassium Level 3.7 Chloride Level 110 Carbon Dioxide Level 17 L Anion Gap 13 Blood Urea Nitrogen 53 #H Creatinine 2.84 H Est Glomerular 17 L Filtrat Rate mL/min Glucose Level 173 Calcium Level 8.9 Phosphorus Level 5.3 H Magnesium Level 2.2 Test 08/01/18 08:13 08/01/18 11:24 08/01/18 12:15 Activated 71.4 *H Partial Thromboplast Time Creatine Kinase 82 Creatine Kinase 6.6 Index Creatinine Kinase MB 5.45 H (Mass) Troponin I 14.500 *H Bedside Glucose 207 Medications Medication Current Medications IV Flush (NS 3 ml) 3 ml PER PROTOCOL IV ; Start 07/30/18 at 19:30 Ondansetron HCl (Zofran Inj) 4 mg Q6H PRN IV NAUSEA/VOMITING; Start 07/30/18 at 19:30 Acetaminophen (Tylenol Tab) 650 mg Q6H PRN PO .PAIN 1-3 OR TEMP Last administered on 08/01/18 00:02; Admin Dose 325 MG; Start 07/30/18 at 19:30 Acetaminophen/ Hydrocodone Bitart ([place] (5/325)) 1 tab Q6H PRN PO .MOD PAIN 4- 6; Start 07/30/18 at 19:30 Morphine Sulfate (morphine) 2 mg Q4H PRN IV .SEVERE PAIN 7-10; Start 07/30/18 at 19:30 Docusate Sodium (Colace) 100 mg Q12H PRN PO .CONSTIPATION; Start 07/30/18 at 19:30 Zolpidem Tartrate (Ambien) 5 mg QHS PRN PO .INSOMNIA; Start 07/30/18 at 19:30 Heparin Sodium (Porcine) (Heparin (1000 Units/ml)) 3,900 unit PER PROTOCOL PRN IV aPTT<47 Last administered on 07/31/18at 18:12; Admin Dose 3,900 UNIT; Start 07/30/18 at 19:30 Heparin Sodium (Porcine) 250 ml @ 8 mls/hr PER PROTOCOL IV Last administered on 08/01/18at 09:26; Admin Dose 9 MLS/HR; Start 07/30/18 at 19:30 Azithromycin 250 ml @ 250 mls/hr Q24H IVPB Last administered on 07/31/18 18:14; Admin Dose 250 MLS/HR; Start 07/30/18 at 19:30 Atorvastatin Calcium (Lipitor) 80 mg HS PO Last administered on 07/31/18 22:15; Admin Dose 80 MG; Start 07/30/18 at 21:00 Insulin Glargine (Lantus) 7 units DAILY@2000 SC Last administered on 07/31/18at 22:40; Admin Dose 7 UNITS; Start 07/30/18 at 20:00 Miscellaneous Information 1 ea NOTE XX ; Start 07/30/18 at 20:00 Glucose (Glutose) 15 gm Q15M PRN PO DECREASED GLUCOSE; Start 07/30/18 at 20:00 Glucose (Glutose) 22.5 gm Q15M PRN PO DECREASED GLUCOSE; Start 07/30/18 at 20:00 Dextrose (D50w Syringe) 25 ml Q15M PRN IV DECREASED GLUCOSE; Start 07/30/18 at 20:00 Dextrose (D50w Syringe) 50 ml Q15M PRN IV DECREASED GLUCOSE; Start 07/30/18 at 20:00 Glucagon (Glucagen) 1 mg Q15M PRN IM DECREASED GLUCOSE; Start 07/30/18 at 20:00 Glucose (Glutose) 15 gm Q15M PRN BUCCAL DECREASED GLUCOSE; Start 07/30/18 at 20:00 Aspirin (Aspirin) 81 mg DAILY PO Last administered on 08/01/18 09:02; Admin Dose 81 MG; Start 08/01/18 at 09:00 Carvedilol (Coreg) 3.125 mg BID GTB Last administered on 08/01/18at 09:03; Admin Dose 3.125 MG; Start 07/31/18 at 21:00 Cefepime HCl 50 ml @ 100 mls/hr Q24H IVPB Last administered on 08/01/18 09:22; Admin Dose 100 MLS/HR; Start 07/31/18 at 10:00 Insulin Aspart (Novolog Insulin Pen) (Adult SC Insulin - Mild Algorithm)... AC MEALS AND BEDTIME SC Last administered on 08/01/18 12:28; Admin Dose 2 UNIT; Start 08/01/18 at 07:00 Albuterol/ Ipratropium (Duoneb) 3 ml Q4H RESP THERAPY PRN HHN SHORTNESS OF BREATH Last administered on 08/01/18 00:36; Admin Dose 3 ML; Start 08/01/18 at 00:30 Acetylcysteine (Mucomyst) 3 ml Q6H RESP THERAPY PRN NEB SHORTNESS OF BREATH Last administered on 08/01/18at 00:36; Admin Dose 3 ML; Start 08/01/18 at 00:30 VÍCTOR MIR Aug 01, 2018 13:54
--- NOTE | 2018-08-01 14:19 | CONS ---
Consult Date/Type/Reason Admit Date/Time Jul 30, 2018 at 17:20 Initial Consult Date 07/31/18 Type of Consult Pulmonary Requesting Provider: VÍCTOR MIR Date/Time of Note DATE: 08/01/18 TIME: 14:18 Subjective Patient comfortable no respiratory distress Objective Vital Signs Date Temp Pulse Resp B/P (MAP) Pulse Ox O2 O2 Flow FiO2 Time Delivery Rate 08/01/18 86 13:06 08/01/18 98.1 18 96/69 (78) 91 12:05 08/01/18 Nasal 4.0 00:38 Cannula 07/31/18 40 08:10 Intake and Output 07/31/18 07/31/18 08/01/18 1515:00 23:00 07:00 IntakeIntake Total 258.5 ml 250 ml OutputOutput Total 850 ml 600 ml BalanceBalance -591.5 ml -350 ml Exam GENERAL: VITAL SIGNS: per chart NECK: Supple. No JVD or lymphadenopathy. CARDIAC EXAM: S1, S2. No added sounds or murmurs. CHEST: Diminished air entry bilaterally with few rales. ABDOMEN: Soft, nontender. No guarding or rebound. EXTREMITIES: No cyanosis, clubbing or edema. NEUROLOGIC: Generalized weakness. No focal deficits. Results/Medications Result Diagram: 08/01/18 0506 08/01/18 0506 Results 24 hrs Laboratory Tests Test 07/31/18 16:08 07/31/18 16:33 07/31/18 21:04 08/01/18 00:03 Activated 45.5 H 123.3 *H Partial Thromboplast Time Bedside Glucose 138 187 Test 08/01/18 01:13 08/01/18 05:06 08/01/18 07:45 08/01/18 08:13 Bedside Glucose 162 172 White Blood Count 10.4 Red Blood Count 3.21 L Hemoglobin 9.7 L Hematocrit 30.2 L Mean Corpuscular 94.1 Volume Mean Corpuscular 30.2 Hemoglobin Mean Corpuscular 32.1 Hemoglobin Concent Red Cell 13.2 Distribution Width Platelet Count 224 Mean Platelet Volume 12.3 H Immature 0.800 H Granulocytes % Neutrophils % 84.5 H Lymphocytes % 7.4 L Monocytes % 6.9 Eosinophils % 0.2 Basophils % 0.2 Nucleated Red Blood 0.3 H Cells % Immature 0.080 H Granulocytes # Neutrophils # 8.8 H Lymphocytes # 0.8 Monocytes # 0.7 Eosinophils # 0.0 Basophils # 0.0 Nucleated Red Blood 0.0 Cells # Sodium Level 140 Potassium Level 3.7 Chloride Level 110 Carbon Dioxide Level 17 L Anion Gap 13 Blood Urea Nitrogen 53 #H Creatinine 2.84 H Est Glomerular 17 L Filtrat Rate mL/min Glucose Level 173 Calcium Level 8.9 Phosphorus Level 5.3 H Magnesium Level 2.2 Activated 71.4 *H Partial Thromboplast Time Test 08/01/18 11:24 08/01/18 12:15 Creatine Kinase 82 Creatine Kinase 6.6 Index Creatinine Kinase MB 5.45 H (Mass) Troponin I 14.500 *H Bedside Glucose 207 Medications Current Medications IV Flush (NS 3 ml) 3 ml PER PROTOCOL IV ; Start 07/30/18 at 19:30 Ondansetron HCl (Zofran Inj) 4 mg Q6H PRN IV NAUSEA/VOMITING; Start 07/30/18 at 19:30 Acetaminophen (Tylenol Tab) 650 mg Q6H PRN PO .PAIN 1-3 OR TEMP Last administered on 08/01/18at 00:02; Admin Dose 325 MG; Start 07/30/18 at 19:30 Acetaminophen/ Hydrocodone Bitart ([place] (5/325)) 1 tab Q6H PRN PO .MOD PAIN 4- 6; Start 07/30/18 at 19:30 Morphine Sulfate (morphine) 2 mg Q4H PRN IV .SEVERE PAIN 7-10; Start 07/30/18 at 19:30 Docusate Sodium (Colace) 100 mg Q12H PRN PO .CONSTIPATION; Start 07/30/18 at 19: 30 Zolpidem Tartrate (Ambien) 5 mg QHS PRN PO .INSOMNIA; Start 07/30/18 at 19:30 Heparin Sodium (Porcine) (Heparin (1000 Units/ml)) 3,900 unit PER PROTOCOL PRN IV aPTT<47 Last administered on 07/31/18at 18:12; Admin Dose 3,900 UNIT; Start 07/30/18 at 19:30 Heparin Sodium (Porcine) 250 ml @ 8 mls/hr PER PROTOCOL IV Last administered on 08/01/18at 09:26; Admin Dose 9 MLS/HR; Start 07/30/18 at 19:30 Azithromycin 250 ml @ 250 mls/hr Q24H IVPB Last administered on 07/31/18at 18:14; Admin Dose 250 MLS/HR; Start 07/30/18 at 19:30 Atorvastatin Calcium (Lipitor) 80 mg HS PO Last administered on 07/31/18at 22:15; Admin Dose 80 MG; Start 07/30/18 at 21:00 Miscellaneous Information 1 ea NOTE XX ; Start 07/30/18 at 20:00 Glucose (Glutose) 15 gm Q15M PRN PO DECREASED GLUCOSE; Start 07/30/18 at 20:00 Glucose (Glutose) 22.5 gm Q15M PRN PO DECREASED GLUCOSE; Start 07/30/18 at 20:00 Dextrose (D50w Syringe) 25 ml Q15M PRN IV DECREASED GLUCOSE; Start 07/30/18 at 20:00 Dextrose (D50w Syringe) 50 ml Q15M PRN IV DECREASED GLUCOSE; Start 07/30/18 at 20:00 Glucagon (Glucagen) 1 mg Q15M PRN IM DECREASED GLUCOSE; Start 07/30/18 at 20:00 Glucose (Glutose) 15 gm Q15M PRN BUCCAL DECREASED GLUCOSE; Start 07/30/18 at 20: 00 Aspirin (Aspirin) 81 mg DAILY PO Last administered on 08/01/18at 09:02; Admin Dose 81 MG; Start 08/01/18 at 09:00 Carvedilol (Coreg) 3.125 mg BID GTB Last administered on 08/01/18at 09:03; Admin Dose 3.125 MG; Start 07/31/18 at 21:00 Cefepime HCl 50 ml @ 100 mls/hr Q24H IVPB Last administered on 08/01/18at 09:22; Admin Dose 100 MLS/HR; Start 07/31/18 at 10:00 Insulin Aspart (Novolog Insulin Pen) (Adult SC Insulin - Mild Algorithm)... AC MEALS AND BEDTIME SC Last administered on 08/01/18at 12:28; Admin Dose 2 UNIT; Start 08/01/18 at 07:00 Albuterol/ Ipratropium (Duoneb) 3 ml Q4H RESP THERAPY PRN HHN SHORTNESS OF BREATH Last administered on 08/01/18at 00:36; Admin Dose 3 ML; Start 08/01/18 at 00:30 Acetylcysteine (Mucomyst) 3 ml Q6H RESP THERAPY PRN NEB SHORTNESS OF BREATH Last administered on 08/01/18at 00:36; Admin Dose 3 ML; Start 08/01/18 at 00:30 Insulin Glargine (Lantus) 10 units DAILY@2000 SC ; Start 08/01/18 at 20:00; Status UNV Insulin Aspart (Novolog Insulin Pen) 3 unit WITH MEALS SC ; Start 08/01/18 at 18:00; Status UNV Assessment/Plan Hospital Course (Demo Recall) Assessment 1. Community acquired pneumonia 2. Recent myocardial infarction 3. Renal insufficiency with metabolic acidosis Plan 1. Continue antibiotics 2. Renal recommendations 3. Physical therapy recommendations KUN BOOGIE [facility] Aug 01, 2018 14:19
[2018-08-01] MEDS: INSULIN ASPART [NOVOLOG] 3 ML PEN SC SCH (17:42)
[2018-08-01] MEDS: AZITHROMYCIN 500MG/NS (PMX) 250 ML IVPB SCH (19:33)
[2018-08-01] MEDS: ATORVASTATIN 80 MG TAB PO SCH (20:30)
[2018-08-01] MEDS: INSULIN GLARGINE [LANTus] (100 UNITS/ML) SYG SC SCH (20:49)
--- NOTE | 2018-08-01 23:21 | RADRPT ---
Echocardiogram Report Patient Name: MORENO PATELPatient ID: [id number] : 1955 (63y 4m)Study Date: 07/31/2018 7:40:04 AM Gender: FAccession #: [id number] Tech: DB Location: Ref.Physician: VÍCTOR MIR Height(Cm): BSA: Weight(Kg): Quality: GoodAccount #: Procedures: Echocardiographic Report: Transthoracic echocardiogram with complete 2D, M-Mode, and doppler examination. Indications: Evaluate Left Ventricular function. Measurements: 2D/M Mode Doppler Measurement Value Normal Range Measurement Value Normal Range LVIDd 2D 5.1 [ 3.8 - 5.2 ] cm JOHANNE VTI 2.0 [ 2.0 - 4.0 ] cm2 LVIDs 2D 4.7 [ 2.2 - 3.5 ] cm AV Mean Abdelrahman 0.7 [ 70.0 - 90.0 ] cm/sec LVPWd 2D 1.3 [ 0.6 - 0.9 ] cm AV Mean PG 2.0 [ 2.0 - 4.0 ] mmHg IVSd 2D 1.3 [ 0.6 - 0.9 ] cm AV VTI 19.2 cm EF 2D 19.8 [ 54.0 - 74.0 ] percent LVOT Mean Abdelrahman 0.5 [ 60.0 - 80.0 ] cm/sec LVOT Diam 1.9 [ 2.1 - 2.5 ] cm LVOT Mean PG 1.0 [ 1.0 - 3.0 ] mmHg LVOT Peak Abdelrahman 0.7 [ 70.0 - 110.0 ] cm/sec LVOT Peak PG 2.0 [ 2.0 - 6.0 ] mmHg LVOT VTI 13.2 [ 20.0 - 30.0 ] cm MV E Peak Abdelrahman 0.6 [ 60.0 - 130.0 ] cm/sec MV A Peak Abdelrahman 1.0 [ 100.0 - 120.0 ] cm/sec MV E/A 0.6 [ 0.8 - 1.5 ] ratio MV Decel Time 155 [ 104 - 258 ] msec Lat E` Abdelrahman 0.0 [ 10.0 - 15.0 ] cm/sec Lateral E/E` 12.5 [ 1.0 - 2.0 ] ratio Med E` Abdelrahman 0.0 cm/sec MV E/A 0.6 [ 0.8 - 1.5 ] ratio TR Peak Abdelrahman 3.4 [ 100.0 - 280.0 ] cm/sec TR Peak PG 47.0 mmHg PV Peak Abdelrahman 0.4 [ 40.0 - 80.0 ] cm/sec PV Peak PG 1.0 mmHg Findings: Left Ventricle: Normal left ventricular cavity size. Mild concentric left ventricular hypertrophy. Severe left ventricular systolic dysfunction. Ejection fraction is visually estimated at 25 %. Tissue Doppler/Mitral Doppler indices are consistent with impaired relaxation (Stage I diastolic dysfunction). These segments of the LV are hypokinetic basal anterior segment, inferoseptum mid segment and anteroseptum mid segment. These segments of the LV are akinetic mid anterior segment, apical anterior segment, apical lateral segment and apical septum segment. Right Ventricle: Normal right ventricular size. Normal right ventricular systolic function. Left Atrium: There is moderate enlargement of left atrium. Right Atrium: There is mild enlargement of right atrium. Mitral Valve: Moderate to severe mitral valve regurgitation. Aortic Valve: Normal appearance of the aortic valve. No significant aortic stenosis with trivial insufficiency. Tricuspid Valve: Right ventricular systolic pressure is consistent with moderate pulmonary hypertension. Estimated peak PA systolic pressure 63 mmHg. There is moderate tricuspid regurgitation. Pulmonic Valve: Normal pulmonic valve appearance. There is trace to mild pulmonic regurgitation. Pericardium: Normal pericardium with no significant pericardial effusion. Left pleural effusion seen. Aorta: Normal aortic root. IVC: Dilated IVC without respiratory collapse consistent with elevated right atrial pressure. Conclusions: Normal left ventricular cavity size. Mild concentric left ventricular hypertrophy. Severe left ventricular systolic dysfunction. Ejection fraction is visually estimated at 25 %. Tissue Doppler/Mitral Doppler indices are consistent with impaired relaxation (Stage I diastolic dysfunction). These segments of the LV are hypokinetic basal anterior segment, inferoseptum mid segment and anteroseptum mid segment. These segments of the LV are akinetic mid anterior segment, apical anterior segment, apical lateral segment and apical septum segment. There is moderate enlargement of left atrium. There is mild enlargement of right atrium. Moderate to severe mitral valve regurgitation. Normal appearance of the aortic valve. No significant aortic stenosis with trivial insufficiency. Right ventricular systolic pressure is consistent with moderate pulmonary hypertension. Estimated peak PA systolic pressure 63 mmHg. There is moderate tricuspid regurgitation. Normal pulmonic valve appearance. There is trace to mild pulmonic regurgitation. Electronically Signed By: Elvin Reynaga 2018-08-01 23:20:49 PDT
[2018-08-02] VITALS (14 sets, daily range): BP systolic 93–106; BP diastolic 58–69; PULSE 63–88; RESP 17–18
[2018-08-02] MEDS: HEPARIN 25000 UNITS/250 ML 250 ML IV SCH ×2 (07:22→15:02)
[2018-08-02] MEDS: INSULIN ASPART [NOVOLOG] 3 ML PEN SC SCH ×3 (07:49→17:23)
[2018-08-02] MEDS: Insulin NOVOLOG SS MILD Algorithm (SS with meals and bedtime) SC SCH ×4 (07:50→21:00)
[2018-08-02] MEDS: ASPIRIN 81 MG TAB PO SCH (08:43)
--- NOTE | 2018-08-02 09:10 | PN ---
DATE: 08/02/2018 SUBJECTIVE: The patient is stable, refusing BiPAP. The patient's daughter is at bedside. I discuss ed with her about her mother's overall renal failure and the possibility of hemodialysis if renal fun ction should further decline and patient should become symptomatic. No other events noted. No hemop tysis, hematemesis, hematochezia. OBJECTIVE: VITAL SIGNS: Blood pressure is 95/63, respiration 18, pulse 79, temperature 98.1. HEENT: Head is normocephalic. NECK: Supple. HEART: Regular rate. LUNGS: Show diminished breath sounds at the base. ABDOMEN: Soft, nontender to palpation without rebound or guarding. EXTREMITIES: Negative for clubbing, cyanosis, trace edema. DERMATOLOGIC: No rashes. MUSCULOSKELETAL: No joint effusions. NEUROLOGIC: No change in exam. MEDICATIONS: Reviewed. LABORATORY DATA: Shows sodium 142, potassium 3.9, chloride 110, bicarbonate 17, BUN 94, creatinine 2 .70, phosphorus 6.3. White count 10.2, hemoglobin 9.9, platelet count is 214. The patient's urinaly sis was reviewed. Protein creatinine ratio, albumin/creatinine ratio were reviewed. ASSESSMENT AND PLAN: 1. Nonoliguric acute kidney injury on top of chronic kidney disease with previous baseline creatinin e of 1.6 to 1.9 mg/dL. Etiology of acute kidney injury is multifactorial secondary to hemodynamics, cardiorenal syndrome, possible tubular injury. The patient's renal function has improved with diuret ic therapy, medical management. The patient does have significant azotemia which is likely multifact orial due to cardiorenal syndrome, acute kidney injury, hypercatabolic state. At this point, will co ntinue current medical management. Continue intermittent diuretic therapy. At this point, continue current medical management. Will continue intermittent diuretic therapy as tolerated. Continue supp ortive care, renally dose all meds, avoid nephrotoxins. 2. Hypernatremia, improved. Continue current free water intake. 3. Metabolic acidosis with respiratory compensation. Continue to monitor. 4. Mineral bone disorder, monitor calcium and phosphorus levels. 5. Anemia. Continue to monitor hemoglobin and hematocrit levels. 6. Acute respiratory failure secondary to pneumonia and congestive heart failure. The patient is cl inically improving. Patient is refusing BiPAP. Continue intermittent diuretic therapy. Continue an tibiotics, continue nebulizers. 7. Decompensated heart failure. The patients 2D echo was reviewed. The patients ejection fraction is 25%. Continue current medical management. The patient is being evaluated for ischemic workup. F ollow up with cardiology. 8. Non-ST elevation myocardial infarction. The patient is currently undergoing medical management. Patient high risk for contrast-associated nephropathy. Currently, cardiac catheterization and angio gram is being deferred. Follow up with cardiology for further recommendations. 9. Diabetes. Continue current insulin regimen. 10. Chronic kidney disease, likely due to diabetic nephropathy. Continue treating acute kidney inju ry as stated above. Would otherwise continue disease factor modification. Dictated By: EVERT MARIANO DO NR/NTS Conf#: [id number] DID#: [id number] CC: VÍCTOR MIR MD;*EndCC*
--- NOTE | 2018-08-02 10:44 | CONS ---
Consult Date/Type/Reason Admit Date/Time Jul 30, 2018 at 17:20 Initial Consult Date 07/31/18 Type of Consult Pulmonary Requesting Provider: VÍCTOR MIR Date/Time of Note DATE: 08/02/18 TIME: 10:42 Subjective Patient comfortable this morning still has some shortness of breath but improved. Objective Vital Signs Date Temp Pulse Resp B/P (MAP) Pulse Ox O2 O2 Flow FiO2 Time Delivery Rate 08/02/18 Nasal 4.0 10:23 Cannula 08/02/18 78 08:19 08/02/18 98.1 18 95/63 (74) 91 07:29 08/02/18 40 03:20 Intake and Output 08/01/18 08/01/18 08/02/18 1515:00 23:00 07:00 IntakeIntake Total 50 ml 400 ml 400 ml OutputOutput Total 400 ml 500 ml BalanceBalance 50 ml 0 ml -100 ml Exam GENERAL: Elderly lady comfortable at rest no acute distress on 5 L nasal cannula VITAL SIGNS: per chart NECK: Supple. No JVD or lymphadenopathy. CARDIAC EXAM: S1, S2. No added sounds or murmurs. CHEST: Bibasilar rales ABDOMEN: Soft, nontender. No guarding or rebound. EXTREMITIES: No cyanosis, clubbing or edema. NEUROLOGIC: Generalized weakness. No focal deficits. Results/Medications Result Diagram: 08/02/1852108/02/18521 Results 24 hrs Laboratory Tests Test 08/01/18 11:24 08/01/18 12:15 08/01/18 15:08 08/01/18 17:28 Creatine Kinase 82 Creatine Kinase 6.6 Index Creatinine Kinase MB 5.45 H (Mass) Troponin I 14.500 *H Bedside Glucose 207 172 Activated 59.5 H Partial Thromboplast Time Test 08/01/18 20:25 08/01/18 22:07 08/02/18 01:15 08/02/18 05:22 Bedside Glucose 187 181 Activated 54.9 H 75.7 *H Partial Thromboplast Time White Blood Count 10.2 Red Blood Count 3.28 L Hemoglobin 9.9 L Hematocrit 31.1 L Mean Corpuscular 94.8 Volume Mean Corpuscular 30.2 Hemoglobin Mean Corpuscular 31.8 L Hemoglobin Concent Red Cell 13.9 Distribution Width Platelet Count 214 Mean Platelet Volume 12.5 H Immature 0.800 H Granulocytes % Neutrophils % 84.9 H Lymphocytes % 7.0 L Monocytes % 6.7 Eosinophils % 0.5 Basophils % 0.1 Nucleated Red Blood 0.0 Cells % Immature 0.080 H Granulocytes # Neutrophils # 8.6 H Lymphocytes # 0.7 L Monocytes # 0.7 Eosinophils # 0.1 Basophils # 0.0 Nucleated Red Blood 0.0 Cells # Sodium Level 142 Potassium Level 3.9 Chloride Level 110 Carbon Dioxide Level 17 L Anion Gap 15 H Blood Urea Nitrogen 94 #H Creatinine 2.70 H Est Glomerular 18 L Filtrat Rate mL/min Glucose Level 162 Calcium Level 9.0 Phosphorus Level 6.3 H Magnesium Level 2.2 Creatine Kinase 47 Creatine Kinase 11.2 Index Creatinine Kinase MB 5.27 H (Mass) Troponin I 12.300 *H Test 08/02/18 07:42 Bedside Glucose 182 Medications Current Medications IV Flush (NS 3 ml) 3 ml PER PROTOCOL IV ; Start 07/30/18 at 19:30 Ondansetron HCl (Zofran Inj) 4 mg Q6H PRN IV NAUSEA/VOMITING; Start 07/30/18 at 19:30 Acetaminophen (Tylenol Tab) 650 mg Q6H PRN PO .PAIN 1-3 OR TEMP Last administered on 08/01/18at 00:02; Admin Dose 325 MG; Start 07/30/18 at 19:30 Acetaminophen/ Hydrocodone Bitart ([place] (5/325)) 1 tab Q6H PRN PO .MOD PAIN 4- 6; Start 07/30/18 at 19:30 Morphine Sulfate (morphine) 2 mg Q4H PRN IV .SEVERE PAIN 7-10; Start 07/30/18 at 19:30 Docusate Sodium (Colace) 100 mg Q12H PRN PO .CONSTIPATION; Start 07/30/18 at 19: 30 Zolpidem Tartrate (Ambien) 5 mg QHS PRN PO .INSOMNIA; Start 07/30/18 at 19:30 Heparin Sodium (Porcine) (Heparin (1000 Units/ml)) 3,900 unit PER PROTOCOL PRN IV aPTT<47 Last administered on 07/31/18at 18:12; Admin Dose 3,900 UNIT; Start 07/30/18 at 19:30 Heparin Sodium (Porcine) 250 ml @ 8 mls/hr PER PROTOCOL IV Last administered on 08/02/18 07:22; Admin Dose 9.5 MLS/HR; Start 07/30/18 at 19:30 Azithromycin 250 ml @ 250 mls/hr Q24H IVPB Last administered on 08/01/18 19:33; Admin Dose 250 MLS/HR; Start 07/30/18 at 19:30 Atorvastatin Calcium (Lipitor) 80 mg HS PO Last administered on 08/01/18 20:30; Admin Dose 80 MG; Start 07/30/18 at 21:00 Miscellaneous Information 1 ea NOTE XX ; Start 07/30/18 at 20:00 Glucose (Glutose) 15 gm Q15M PRN PO DECREASED GLUCOSE; Start 07/30/18 at 20:00 Glucose (Glutose) 22.5 gm Q15M PRN PO DECREASED GLUCOSE; Start 07/30/18 at 20:00 Dextrose (D50w Syringe) 25 ml Q15M PRN IV DECREASED GLUCOSE; Start 07/30/18 at 20:00 Dextrose (D50w Syringe) 50 ml Q15M PRN IV DECREASED GLUCOSE; Start 07/30/18 at 20:00 Glucagon (Glucagen) 1 mg Q15M PRN IM DECREASED GLUCOSE; Start 07/30/18 at 20:00 Glucose (Glutose) 15 gm Q15M PRN BUCCAL DECREASED GLUCOSE; Start 07/30/18 at 20:00 Aspirin (Aspirin) 81 mg DAILY PO Last administered on 08/02/18at 08:43; Admin Dose 81 MG; Start 08/01/18 at 09:00 Carvedilol (Coreg) 3.125 mg BID GTB Last administered on 08/01/18 09:03; Admin Dose 3.125 MG; Start 07/31/18 at 21:00 Cefepime HCl 50 ml @ 100 mls/hr Q24H IVPB Last administered on 08/01/18 09:22; Admin Dose 100 MLS/HR; Start 07/31/18 at 10:00 Insulin Aspart (Novolog Insulin Pen) (Adult SC Insulin - Mild Algorithm)... AC MEALS AND BEDTIME SC Last administered on 08/02/18 07:50; Admin Dose 2 UNIT; Start 08/01/18 at 07:00 Albuterol/ Ipratropium (Duoneb) 3 ml Q4H RESP THERAPY PRN HHN SHORTNESS OF BREATH Last administered on 08/01/18at 00:36; Admin Dose 3 ML; Start 08/01/18 at 00:30 Acetylcysteine (Mucomyst) 3 ml Q6H RESP THERAPY PRN NEB SHORTNESS OF BREATH Last administered on 08/01/18at 00:36; Admin Dose 3 ML; Start 08/01/18 at 00:30 Insulin Glargine (Lantus) 10 units DAILY@2000 SC Last administered on 08/01/18at 20:49; Admin Dose 10 UNITS; Start 08/01/18 at 20:00 Insulin Aspart (Novolog Insulin Pen) 3 unit WITH MEALS SC Last administered on 08/02/18 07:49; Admin Dose 3 UNIT; Start 08/01/18 at 18:00 Assessment/Plan Hospital Course (Demo Recall) Assessment 1. Acute hypoxemic respiratory failure likely secondary to acute myocardial infarction with pulmonary edema 2. Status post acute AL with decreased EF at 25% with global LV dysfunction. 3. Renal insufficiency with metabolic acidosis Plan 1. Consider de-escalation no cessation of antibiotics. 2. Cardiac recommendations catheterization currently on hold secondary to elevated creatinine. 3. Continue renal recommendations KUN BOOGIE MD[facility] Aug 02, 2018 10:44
[2018-08-02] MEDS: CEFEPIME 1GM/50 ML (PMX) 50 ML IVPB SCH (10:49)
--- NOTE | 2018-08-02 14:01 | CONS ---
Assessment/Plan Assessment/Plan Hospital Course (Demo Recall) IMP: 1. Acute AL-downtrending cardiac enzymes. NO chest pain 2.HTN 3.abnl ecg-IVCD 4.Renal failure 5.HL 6.DM 7. Cartdiomyopathy EF 25%/mod-sev MR 8. CHF-systolic acute Recc: -Tele -Continue heparin IV -Continue asa/statin high dose -Continue coreg -add low dose Hydralazine afterload reduction as tolerated -Have placed on cath schedule for tomorrow and will discuss with renal to assure we optimize renal function as best as possible. Patient will also need to be able to lay flat for cath and thus will require significant diuresis to allow her to do so safely. Thus will start standing lasix at this time Consultation Date/Type/Reason Admit Date/Time Jul 30, 2018 at 17:20 Initial Consult Date 07/31/18 Type of Consult Cardiology Reason for Consultation Nstemi Requesting Provider: VÍCTOR MIR Date/Time of Note DATE: 08/02/18 TIME: 13:57 Exam/Review of Systems Vital Signs Vitals Vital Signs Date Temp Pulse Resp B/P (MAP) Pulse Ox O2 O2 Flow FiO2 Time Delivery Rate 08/02/18 66 12:18 08/02/18 98.1 18 99/69 (79) 91 11:18 08/02/18 Nasal 4.0 10:23 Cannula 08/02/18 40 03:20 Intake and Output 08/01/18 08/01/18 08/02/18 1515:00 23:00 07:00 IntakeIntake Total 50 ml 400 ml 400 ml OutputOutput Total 400 ml 500 ml BalanceBalance 50 ml 0 ml -100 ml Exam Exam Review of Systems: CONSTITUTIONAL: No fevers, chills. PULMONARY: No sob CARDIOVASCULAR: No chest pain/palpitations GASTROINTESTINAL: No nausea/vomiting. GENITOURINARY: No hematuria/dysuria. MUSCULOSKELETAL: No myagias/arthalgias. PSYCHIATRIC: The patient denies depression. NEUROLOGIC: No weakness Constitutional: alert Psych: no complaints Head: normocephalic ENMT: mucosa pink and moist Neck: supple, jvd (9-10 cm water) Respiratory: diminished breath sounds (at bases/B) Cardiovascular: regular rate and rhythm Gastrointestinal: soft, non-tender Musculoskeletal: muscle tone (normal) Extremities: edema (trace/B) Neurological: other (No focal deficits) Labs Result Diagram: 08/02/1852108/02/18521 Results 24hrs Laboratory Tests Test 08/01/18 15:08 08/01/18 17:28 08/01/18 20:25 08/01/18 22:07 Activated 59.5 H 54.9 H Partial Thromboplast Time Bedside Glucose 172 187 Test 08/02/18 01:15 08/02/18 05:22 08/02/18 07:42 08/02/18 11:40 Bedside Glucose 181 182 165 White Blood Count 10.2 Red Blood Count 3.28 L Hemoglobin 9.9 L Hematocrit 31.1 L Mean Corpuscular 94.8 Volume Mean Corpuscular 30.2 Hemoglobin Mean Corpuscular 31.8 L Hemoglobin Concent Red Cell 13.9 Distribution Width Platelet Count 214 Mean Platelet Volume 12.5 H Immature 0.800 H Granulocytes % Neutrophils % 84.9 H Lymphocytes % 7.0 L Monocytes % 6.7 Eosinophils % 0.5 Basophils % 0.1 Nucleated Red Blood 0.0 Cells % Immature 0.080 H Granulocytes # Neutrophils # 8.6 H Lymphocytes # 0.7 L Monocytes # 0.7 Eosinophils # 0.1 Basophils # 0.0 Nucleated Red Blood 0.0 Cells # Activated 75.7 *H Partial Thromboplast Time Sodium Level 142 Potassium Level 3.9 Chloride Level 110 Carbon Dioxide Level 17 L Anion Gap 15 H Blood Urea Nitrogen 94 #H Creatinine 2.70 H Est Glomerular 18 L Filtrat Rate mL/min Glucose Level 162 Calcium Level 9.0 Phosphorus Level 6.3 H Magnesium Level 2.2 Creatine Kinase 47 Creatine Kinase 11.2 Index Creatinine Kinase MB 5.27 H (Mass) Troponin I 12.300 *H Medications Medications Current Medications IV Flush (NS 3 ml) 3 ml PER PROTOCOL IV ; Start 07/30/18 at 19:30 Ondansetron HCl (Zofran Inj) 4 mg Q6H PRN IV NAUSEA/VOMITING; Start 07/30/18 at 19:30 Acetaminophen (Tylenol Tab) 650 mg Q6H PRN PO .PAIN 1-3 OR TEMP Last administered on 08/01/18at 00:02; Admin Dose 325 MG; Start 07/30/18 at 19:30 Acetaminophen/ Hydrocodone Bitart ([place] (5/325)) 1 tab Q6H PRN PO .MOD PAIN 4- 6; Start 07/30/18 at 19:30 Morphine Sulfate (morphine) 2 mg Q4H PRN IV .SEVERE PAIN 7-10; Start 07/30/18 at 19:30 Docusate Sodium (Colace) 100 mg Q12H PRN PO .CONSTIPATION; Start 07/30/18 at 19:30 Zolpidem Tartrate (Ambien) 5 mg QHS PRN PO .INSOMNIA; Start 07/30/18 at 19:30 Heparin Sodium (Porcine) (Heparin (1000 Units/ml)) 3,900 unit PER PROTOCOL PRN IV aPTT<47 Last administered on 07/31/18at 18:12; Admin Dose 3,900 UNIT; Start 07/30/18 at 19:30 Heparin Sodium (Porcine) 250 ml @ 8 mls/hr PER PROTOCOL IV Last administered on 08/02/18at 07:22; Admin Dose 9.5 MLS/HR; Start 07/30/18 at 19:30 Azithromycin 250 ml @ 250 mls/hr Q24H IVPB Last administered on 08/01/18at 19:33; Admin Dose 250 MLS/HR; Start 07/30/18 at 19:30 Atorvastatin Calcium (Lipitor) 80 mg HS PO Last administered on 08/01/18at 20: 30; Admin Dose 80 MG; Start 07/30/18 at 21:00 Miscellaneous Information 1 ea NOTE XX ; Start 07/30/18 at 20:00 Glucose (Glutose) 15 gm Q15M PRN PO DECREASED GLUCOSE; Start 07/30/18 at 20:00 Glucose (Glutose) 22.5 gm Q15M PRN PO DECREASED GLUCOSE; Start 07/30/18 at 20:00 Dextrose (D50w Syringe) 25 ml Q15M PRN IV DECREASED GLUCOSE; Start 07/30/18 at 20:00 Dextrose (D50w Syringe) 50 ml Q15M PRN IV DECREASED GLUCOSE; Start 07/30/18 at 20:00 Glucagon (Glucagen) 1 mg Q15M PRN IM DECREASED GLUCOSE; Start 07/30/18 at 20:00 Glucose (Glutose) 15 gm Q15M PRN BUCCAL DECREASED GLUCOSE; Start 07/30/18 at 20:00 Aspirin (Aspirin) 81 mg DAILY PO Last administered on 08/02/18 08:43; Admin Dose 81 MG; Start 08/01/18 at 09:00 Carvedilol (Coreg) 3.125 mg BID GTB Last administered on 08/02/18 11:43; Admin Dose 3.125 MG; Start 07/31/18 at 21:00 Cefepime HCl 50 ml @ 100 mls/hr Q24H IVPB Last administered on 08/02/18 10:49; Admin Dose 100 MLS/HR; Start 07/31/18 at 10:00 Insulin Aspart (Novolog Insulin Pen) (Adult SC Insulin - Mild Algorithm)... AC MEALS AND BEDTIME SC Last administered on 08/02/18 11:48; Admin Dose 1 UNIT; Start 08/01/18 at 07:00 Albuterol/ Ipratropium (Duoneb) 3 ml Q4H RESP THERAPY PRN HHN SHORTNESS OF BREATH Last administered on 08/01/18 00:36; Admin Dose 3 ML; Start 08/01/18 at 00:30 Acetylcysteine (Mucomyst) 3 ml Q6H RESP THERAPY PRN NEB SHORTNESS OF BREATH Last administered on 08/01/18 00:36; Admin Dose 3 ML; Start 08/01/18 at 00:30 Insulin Glargine (Lantus) 10 units DAILY@2000 SC Last administered on 08/01/18 20:49; Admin Dose 10 UNITS; Start 08/01/18 at 20:00 Insulin Aspart (Novolog Insulin Pen) 3 unit WITH MEALS SC Last administered on 08/02/18 11:48; Admin Dose 3 UNIT; Start 08/01/18 at 18:00 OFELIA ANNE Aug 02, 2018 14:01
[2018-08-02] MEDS ORDERED: FUROSEMIDE 40 MG INJ IV ONE (14:30)
--- NOTE | 2018-08-02 14:38 | PN ---
Date/Time of Note Date/Time of Note DATE: 08/02/18 TIME: 14:34 Assessment/Plan VTE Prophylaxis Risk score (from Nsg)>0 risk: 3 Pharmacological prophylaxis: heparin Lines/Catheters IV Catheter Type (from Nrsg): Peripheral IV Assessment/Plan Hospital Course 1. Non-STEMI Heparin drip Lipitor Cardiology consultation with Dr. Reynaga appreciated, patient was to have a heart cath but troponins trended down and patient is chest pain-free and in light of CKD with potential of exacerbation of renal failure heart cath has been held for now Plan for heart cath tomorrow A1c and lipid profile noted 2. Acute respiratory failure secondary to edema and/or pneumonia-improved No evidence of sepsis status post empiric treatment, DC antibiotics Supplemental oxygen as needed Pulmonology consultation appreciated 3. Acute on chronic kidney disease Creatinine is improving Nephrology consultation appreciated 4. Anion gap metabolic acidosis with respiratory compensation secondary to renal failure Nephrology consultation appreciated Lactic acid is normal, UA negative for ketones 5. Diabetes Increase basal and start mealtime insulin, continue sliding scale 6. Acute systolic and diastolic heart failure -Patient with new diagnosis of heart failure, echo shows an EF of 25% with stage I diastolic heart failure -Etiology may be ischemic, heart cath tomorrow 7. Normocytic anemia secondary to chronic disease and renal failure Monitor Prophylaxis: Heparin DC planning: Monitor renal function, heart cath tomorrow Result Diagram: 08/02/1852108/02/18 0522 Results 24hrs Laboratory Tests Test 08/01/18 15:08 08/01/18 17:28 08/01/18 20:25 08/01/18 22:07 Activated 59.5 H 54.9 H Partial Thromboplast Time Bedside Glucose 172 187 Test 08/02/18 01:15 08/02/18 05:22 08/02/18 07:42 08/02/18 11:40 Bedside Glucose 181 182 165 White Blood Count 10.2 Red Blood Count 3.28 L Hemoglobin 9.9 L Hematocrit 31.1 L Mean Corpuscular 94.8 Volume Mean Corpuscular 30.2 Hemoglobin Mean Corpuscular 31.8 L Hemoglobin Concent Red Cell 13.9 Distribution Width Platelet Count 214 Mean Platelet Volume 12.5 H Immature 0.800 H Granulocytes % Neutrophils % 84.9 H Lymphocytes % 7.0 L Monocytes % 6.7 Eosinophils % 0.5 Basophils % 0.1 Nucleated Red Blood 0.0 Cells % Immature 0.080 H Granulocytes # Neutrophils # 8.6 H Lymphocytes # 0.7 L Monocytes # 0.7 Eosinophils # 0.1 Basophils # 0.0 Nucleated Red Blood 0.0 Cells # Activated 75.7 *H Partial Thromboplast Time Sodium Level 142 Potassium Level 3.9 Chloride Level 110 Carbon Dioxide Level 17 L Anion Gap 15 H Blood Urea Nitrogen 94 #H Creatinine 2.70 H Est Glomerular 18 L Filtrat Rate mL/min Glucose Level 162 Calcium Level 9.0 Phosphorus Level 6.3 H Magnesium Level 2.2 Creatine Kinase 47 Creatine Kinase 11.2 Index Creatinine Kinase MB 5.27 H (Mass) Troponin I 12.300 *H Subjective 24 Hr Interval Summary Constitutional: no complaints Exam/Review of Systems Exam Vitals Vital Signs Date Temp Pulse Resp B/P (MAP) Pulse Ox O2 O2 Flow FiO2 Time Delivery Rate 08/02/18 66 12:18 08/02/18 98.1 18 99/69 (79) 91 11:18 08/02/18 Nasal 4.0 10:23 Cannula 08/02/18 40 03:20 Intake and Output 08/01/18 08/01/18 08/02/18 1515:00 23:00 07:00 IntakeIntake Total 50 ml 400 ml 400 ml OutputOutput Total 400 ml 500 ml BalanceBalance 50 ml 0 ml -100 ml Constitutional: alert, oriented Respiratory: clear to auscultation Cardiovascular: regular rate and rhythm Gastrointestinal: soft; No distended Musculoskeletal: nl extremities to inspection Results Results 24hrs Laboratory Tests Test 08/01/18 15:08 08/01/18 17:28 08/01/18 20:25 08/01/18 22:07 Activated 59.5 H 54.9 H Partial Thromboplast Time Bedside Glucose 172 187 Test 08/02/18 01:15 08/02/18 05:22 08/02/18 07:42 08/02/18 11:40 Bedside Glucose 181 182 165 White Blood Count 10.2 Red Blood Count 3.28 L Hemoglobin 9.9 L Hematocrit 31.1 L Mean Corpuscular 94.8 Volume Mean Corpuscular 30.2 Hemoglobin Mean Corpuscular 31.8 L Hemoglobin Concent Red Cell 13.9 Distribution Width Platelet Count 214 Mean Platelet Volume 12.5 H Immature 0.800 H Granulocytes % Neutrophils % 84.9 H Lymphocytes % 7.0 L Monocytes % 6.7 Eosinophils % 0.5 Basophils % 0.1 Nucleated Red Blood 0.0 Cells % Immature 0.080 H Granulocytes # Neutrophils # 8.6 H Lymphocytes # 0.7 L Monocytes # 0.7 Eosinophils # 0.1 Basophils # 0.0 Nucleated Red Blood 0.0 Cells # Activated 75.7 *H Partial Thromboplast Time Sodium Level 142 Potassium Level 3.9 Chloride Level 110 Carbon Dioxide Level 17 L Anion Gap 15 H Blood Urea Nitrogen 94 #H Creatinine 2.70 H Est Glomerular 18 L Filtrat Rate mL/min Glucose Level 162 Calcium Level 9.0 Phosphorus Level 6.3 H Magnesium Level 2.2 Creatine Kinase 47 Creatine Kinase 11.2 Index Creatinine Kinase MB 5.27 H (Mass) Troponin I 12.300 *H Medications Medication Current Medications IV Flush (NS 3 ml) 3 ml PER PROTOCOL IV ; Start 07/30/18 at 19:30 Ondansetron HCl (Zofran Inj) 4 mg Q6H PRN IV NAUSEA/VOMITING; Start 07/30/18 at 19:30 Acetaminophen (Tylenol Tab) 650 mg Q6H PRN PO .PAIN 1-3 OR TEMP Last admin istered on 08/01/18at 00:02; Admin Dose 325 MG; Start 07/30/18 at 19:30 Acetaminophen/ Hydrocodone Bitart ([place] (5/325)) 1 tab Q6H PRN PO .MOD PAIN 4- 6; Start 07/30/18 at 19:30 Morphine Sulfate (morphine) 2 mg Q4H PRN IV .SEVERE PAIN 7-10; Start 07/30/18 at 19:30 Docusate Sodium (Colace) 100 mg Q12H PRN PO .CONSTIPATION; Start 07/30/18 at 19:30 Zolpidem Tartrate (Ambien) 5 mg QHS PRN PO .INSOMNIA; Start 07/30/18 at 19:30 Heparin Sodium (Porcine) (Heparin (1000 Units/ml)) 3,900 unit PER PROTOCOL PRN IV aPTT<47 Last administered on 07/31/18at 18:12; Admin Dose 3,900 UNIT; Start 07/30/18 at 19:30 Heparin Sodium (Porcine) 250 ml @ 8 mls/hr PER PROTOCOL IV Last administered on 08/02/18 07:22; Admin Dose 9.5 MLS/HR; Start 07/30/18 at 19:30 Azithromycin 250 ml @ 250 mls/hr Q24H IVPB Last administered on 08/01/18 19:33; Admin Dose 250 MLS/HR; Start 07/30/18 at 19:30 Atorvastatin Calcium (Lipitor) 80 mg HS PO Last administered on 08/01/18 20:30; Admin Dose 80 MG; Start 07/30/18 at 21:00 Miscellaneous Information 1 ea NOTE XX ; Start 07/30/18 at 20:00 Glucose (Glutose) 15 gm Q15M PRN PO DECREASED GLUCOSE; Start 07/30/18 at 20:00 Glucose (Glutose) 22.5 gm Q15M PRN PO DECREASED GLUCOSE; Start 07/30/18 at 20:00 Dextrose (D50w Syringe) 25 ml Q15M PRN IV DECREASED GLUCOSE; Start 07/30/18 at 20:00 Dextrose (D50w Syringe) 50 ml Q15M PRN IV DECREASED GLUCOSE; Start 07/30/18 at 20:00 Glucagon (Glucagen) 1 mg Q15M PRN IM DECREASED GLUCOSE; Start 07/30/18 at 20:00 Glucose (Glutose) 15 gm Q15M PRN BUCCAL DECREASED GLUCOSE; Start 07/30/18 at 20:00 Aspirin (Aspirin) 81 mg DAILY PO Last administered on 08/02/18at 08:43; Admin Dose 81 MG; Start 08/01/18 at 09:00 Carvedilol (Coreg) 3.125 mg BID GTB Last administered on 08/02/18 11:43; Admin Dose 3.125 MG; Start 07/31/18 at 21:00 Cefepime HCl 50 ml @ 100 mls/hr Q24H IVPB Last administered on 08/02/18 10:49; Admin Dose 100 MLS/HR; Start 07/31/18 at 10:00 Insulin Aspart (Novolog Insulin Pen) (Adult SC Insulin - Mild Algorithm)... AC MEALS AND BEDTIME SC Last administered on 08/02/18 11:48; Admin Dose 1 UNIT; Start 08/01/18 at 07:00 Albuterol/ Ipratropium (Duoneb) 3 ml Q4H RESP THERAPY PRN HHN SHORTNESS OF BREATH Last administered on 08/01/18at 00:36; Admin Dose 3 ML; Start 08/01/18 at 00:30 Acetylcysteine (Mucomyst) 3 ml Q6H RESP THERAPY PRN NEB SHORTNESS OF BREATH Last administered on 08/01/18at 00:36; Admin Dose 3 ML; Start 08/01/18 at 00:30 Insulin Glargine (Lantus) 10 units DAILY@2000 SC Last administered on 08/01/18at 20:49; Admin Dose 10 UNITS; Start 08/01/18 at 20:00 Insulin Aspart (Novolog Insulin Pen) 3 unit WITH MEALS SC Last administered on 08/02/18at 11:48; Admin Dose 3 UNIT; Start 08/01/18 at 18:00 Hydralazine HCl (Apresoline) 10 mg Q8 PO ; Start 08/02/18 at 22:00 Furosemide (Lasix) 40 mg BID DIURETICS IV ; Start 08/02/18 at 18:00 Diazepam (Valium) 5 mg OC ONCE PO ; Start 08/03/18 at 08:00; Stop 08/03/18 at 08:01 Diphenhydramine HCl (Benadryl) 50 mg OC ONCE PO ; Start 08/03/18 at 08:00; Stop 08/03/18 at 08:01 VÍCTOR MIR Aug 02, 2018 14:38
[2018-08-02] MEDS ORDERED: FUROSEMIDE 20 MG INJ IV ONE (16:30)
[2018-08-02] MEDS: FUROSEMIDE 40 MG INJ IV SCH (18:42)
[2018-08-02] MEDS: ATORVASTATIN 80 MG TAB PO SCH (21:39)
[2018-08-02] MEDS: INSULIN GLARGINE [LANTus] (100 UNITS/ML) SYG SC SCH (23:00)
[2018-08-03] VITALS (21 sets, daily range): BP systolic 0–121; BP diastolic 0–67; PULSE 0–156; RESP 17–92
[2018-08-03] MEDS: FUROSEMIDE 40 MG INJ IV SCH (05:38)
[2018-08-03] MEDS: HEPARIN 25000 UNITS/250 ML 250 ML IV SCH ×2 (06:03→09:10)
[2018-08-03] MEDS ORDERED: AMIODARONE 150 MG INJ ONE (07:00)
[2018-08-03] MEDS ORDERED: CA CHLORIDE 10% 10 ML SYRINGE ONE (07:00)
[2018-08-03] MEDS ORDERED: NA BICARBONATE 8.4% 50 ML SYG ONE ×2 (07:00→14:53)
[2018-08-03] MEDS: Insulin NOVOLOG SS MILD Algorithm (SS with meals and bedtime) SC SCH ×2 (07:00→11:30)
[2018-08-03] MEDS ORDERED: EPINEPHrine 0.1 MG/ML SYG ONE (07:00)
[2018-08-03] MEDS ORDERED: LIDOCAINE 100 MG SYRINGE ONE (07:00)
[2018-08-03] MEDS: INSULIN ASPART [NOVOLOG] 3 ML PEN SC SCH ×2 (07:49→11:37)
[2018-08-03] MEDS ORDERED: DIAZEPAM 5 MG TAB PO ONE (08:00)
[2018-08-03] MEDS ORDERED: DIPHENHYDRAMINE 50 MG CAP PO ONE (08:00)
--- NOTE | 2018-08-03 08:42 | PN ---
DATE: 08/03/2018 SUBJECTIVE: The patient remains critically ill. The patient has continued to have respiratory failu re on nasal cannula. The patient is pending possible cardiac catheterization today. No other events noted. OBJECTIVE: VITAL SIGNS: Blood pressure is 97/64, respirations 22, pulse 74, temperature 98.0. HEENT: Head is normocephalic. NECK: Supple. HEART: Regular rate. LUNGS: Show diminished breath sounds at the base. ABDOMEN: Soft, nontender to palpation without rebound or guarding. EXTREMITIES: Negative for clubbing, cyanosis. Positive edema. DERMATOLOGIC: No rashes. MUSCULOSKELETAL: No joint effusion. NEUROLOGIC: No change in exam. MEDICATIONS: The patient's medications have been reviewed. LABORATORY DATA: From 08/03/2018 was reviewed. ASSESSMENT AND PLAN: 1. Nonoliguric acute kidney injury on top of chronic kidney disease with previous baseline creatinin e of around 1.6 to 1.9 mg/dL. Etiology of acute kidney injury is secondary to hemodynamics, cardiore nal syndrome, possible tubular injury. The patient's renal function has been fluctuating during the hospital course. After initial improvement diuretic therapy, no further improvement has been noted. At this point, continue current medical management. Continue diuretic therapy as tolerated and gabriel tor renal function closely. Please note I spoke with the patient in detail about the risks of contra st-associated nephropathy if cardiac catheterization is to occur. We will monitor closely. 2. Hypernatremia, improved. Continue to encourage free water intake. 3. Metabolic acidosis with respiratory compensation. Continue to monitor. 4. Mineral bone disorder, monitor calcium and phosphorus levels. 5. Anemia. Monitor hemoglobin and hematocrit levels. 6. Acute systolic heart failure. The patient remains decompensated. Positive JVD, 4 pillow orthopn ea. Continue diuretic therapy, monitor renal function closely. If patient's cannot be adequately di uresed, we may need to consider renal replacement therapy. Continue to monitor. 7. Acute respiratory failure secondary to pneumonia and congestive heart failure. Continue current medical management. Continue diuretics, antibiotics, continue supplemental oxygen. 8. Non-ST elevation myocardial infarction. The patient is currently on heparin drip, may require ca rdiac catheterization. Continue to monitor. Follow up with Cardiology. 9. Diabetes. Continue current insulin regimen. 10. Chronic kidney disease, likely due to diabetic nephropathy. The patient is currently in acute k idney injury as stated above. Continue current medical management. Dictated By: EVERT MARIANO DO NR/NTS Conf#: [id number] DID#: [id number] CC: OFELIA ANNE MD; VÍCTOR MIR MD;*EndCC*
[2018-08-03] MEDS ORDERED: METOLAZONE 5 MG TAB PO ONE (09:00)
--- NOTE | 2018-08-03 09:43 | CONS ---
Assessment/Plan Assessment/Plan Assessment/Plan (Daily) Assessment and recommendations; 1. Patient admitted with acute WI with chest x-ray showing significant persistent pulmonary edema with interval worsening. 2. Status post treatment for presumed pneumonia. 3. History of chronic renal insufficiency. 4. Mild metabolic acidosis likely from chronic renal insufficiency. 5. Persistent hypoxemia, patient on 5 L nasal cannula. Continue current supportive care. Patient scheduled for coronary angiogram today. Meanwhile add sodium bicarbonate 650 mg 3 times daily for correction of metabolic acidosis. Consultation Date/Type/Reason Admit Date/Time Jul 30, 2018 at 17:20 Initial Consult Date 07/31/18 Type of Consult Pulmonary/critical care Pulmonary consult requested for evaluation of pneumonia. Patient is a 63-year-old lady who came into the hospital with complaints of [address] pain and shortness of breath. The patient had significant elevation in troponin levels as well as chest x-ray showing bilateral pneumonia. Patient has been admitted to ICU and is on BiPAP. By the time I saw her, patient is BiPAP and appears comfortable and did not appear to be in any distress whatsoever. History has been obtained from medical records. Past medical history; 1. History of chronic renal insufficiency. 2. History of left humeral fracture. 3. Diabetes. Medications; reviewed. Allergies; none. Social history; noncontributory. Family history; not available. Patient apparently has a supportive family though. Occupational history; not available. Review of systems; limited review of system could be obtained. Patient denies any further shortness of breath, denies any chest pain. Any nausea vomiting. Any abdominal pain. General exam; elderly female, awake alert, on BiPAP. Currently in no distress. Requesting Provider: VÍCTOR MIR Date/Time of Note DATE: 08/03/18 TIME: 09:41 24 HR Interval Summary Free Text/Dictation Patient's condition is stable overall. Denies any chest pain, coughing, wheezing. General exam; elderly female, awake alert, currently in no distress. Exam/Review of Systems Exam Vitals Vital Signs Date Temp Pulse Resp B/P (MAP) Pulse Ox O2 O2 Flow FiO2 Time Delivery Rate 08/03/18 69 09:04 08/03/18 98.0 22 97/64 (75) 90 Nasal 07:48 Cannula 08/03/18 5.0 04:21 08/02/18 40 03:20 Intake and Output 08/02/18 08/02/18 08/03/18 1515:00 23:00 07:00 IntakeIntake Total 50 ml 400 ml 550 ml OutputOutput Total 300 ml 500 ml BalanceBalance 50 ml 100 ml 50 ml Exam H EENT exam; supple neck, positive JVD. No lymphadenopathy. Midline trachea. No thyromegaly. Patient has fair dentition. No neck masses. Chest exam; diffuse bilateral crackles. S1-S2 audible, no murmurs. Regular rhythm. There is a keloid scar involving the epigastrium. Abdomen exam; soft, nontender. No organomegaly. Bowel sounds audible. Extremity exam; no peripheral edema clubbing. 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 Results Result Diagram: 08/03/18 0501 08/03/18 0501 Results 24hrs Laboratory Tests Test 08/02/18 11:40 08/02/18 13:40 08/02/18 17:14 08/02/18 21:01 Bedside Glucose 165 187 Activated 71.8 *H 60.5 H Partial Thrombopl ast Time Test 08/02/18 21:37 08/03/18 05:01 08/03/18 07:00 08/03/18 07:32 Bedside Glucose 141 White Blood Count 10.8 Red Blood Count 3.07 L Hemoglobin 9.4 L Hematocrit 29.3 L Mean Corpuscular 95.4 Volume Mean Corpuscular 30.6 Hemoglobin Mean Corpuscular 32.1 Hemoglobin Concen t Red Cell 13.9 Distribution Width Platelet Count 203 Mean Platelet 12.1 H Volume Immature 0.800 H Granulocytes % Neutrophils % 88.0 H Lymphocytes % 5.7 L Monocytes % 4.8 Eosinophils % 0.5 Basophils % 0.2 Nucleated Red 0.0 Blood Cells % Immature 0.090 H Granulocytes # Neutrophils # 9.5 H Lymphocytes # 0.6 L Monocytes # 0.5 Eosinophils # 0.1 Basophils # 0.0 Nucleated Red 0.0 Blood Cells # Sodium Level 140 Potassium Level 3.9 Chloride Level 105 Carbon Dioxide 19 L Level Anion Gap 16 H Blood Urea 97 H Nitrogen Creatinine 2.90 H Est Glomerular 16 L Filtrat Rate mL/min Glucose Level 171 Calcium Level 9.1 Phosphorus Level 6.3 H Magnesium Level 2.3 Blood Gas Blood arterial Specimen Source Arterial Blood 08/03/2018 8:20:3 Date Drawn 7 AM Arterial Blood pH 7.298 *L (Temp corrected) Arterial Blood 38.8 pCO2 (Temp correct) Arterial Blood 92.1 pO2 (Temp corrected) Arterial Blood 18.6 L HCO3 Arterial Blood -7.3 L Base Excess Arterial Blood 96.1 Oxygen Saturation [place] Test ACCEPTAB Arterial Blood Right Radial Gas Puncture Site Arterial 0.3 Blood Carboxyhemo globin Arterial Blood 0.3 Methemoglobin Blood Gas A-a O2 119.6 H Differential Oxyhemoglobin 95.5 Percent Blood Gas 37.0 Temperature Blood Gas NASAL CANNULA Modality FiO2 36.0 Blood Gas BURTON MENDOZA Critical Value Read Back Blood Gas TM Notified Whom Blood Gas 08/03/2018 8:31:1 Notified Time 1 AM Activated 55.3 H Partial Thrombopl ast Time Test 08/03/18 07:38 Bedside Glucose 165 Medications Medication Current Medications IV Flush (NS 3 ml) 3 ml PER PROTOCOL IV ; Start 07/30/18 at 19:30 Ondansetron HCl (Zofran Inj) 4 mg Q6H PRN IV NAUSEA/VOMITING; Start 07/30/18 at 19:30 Acetaminophen (Tylenol Tab) 650 mg Q6H PRN PO .PAIN 1-3 OR TEMP Last administered on 08/01/18at 00:02; Admin Dose 325 MG; Start 07/30/18 at 19:30 Acetaminophen/ Hydrocodone Bitart ([place] (5/325)) 1 tab Q6H PRN PO .MOD PAIN 4- 6; Start 07/30/18 at 19:30 Morphine Sulfate (morphine) 2 mg Q4H PRN IV .SEVERE PAIN 7-10; Start 07/30/18 at 19:30 Docusate Sodium (Colace) 100 mg Q12H PRN PO .CONSTIPATION; Start 07/30/18 at 19:30 Zolpidem Tartrate (Ambien) 5 mg QHS PRN PO .INSOMNIA; Start 07/30/18 at 19:30 Heparin Sodium (Porcine) (Heparin (1000 Units/ml)) 3,900 unit PER PROTOCOL PRN IV aPTT<47 Last administered on 07/31/18at 18:12; Admin Dose 3,900 UNIT; Start 07/30/18 at 19:30 Heparin Sodium (Porcine) 250 ml @ 8 mls/hr PER PROTOCOL IV Last administered on 08/03/18at 09:10; Admin Dose 10.5 MLS/HR; Start 07/30/18 at 19:30 Atorvastatin Calcium (Lipitor) 80 mg HS PO Last administered on 08/02/18at 21:39; Admin Dose 80 MG; Start 07/30/18 at 21:00 Miscellaneous Information 1 ea NOTE XX ; Start 07/30/18 at 20:00 Glucose (Glutose) 15 gm Q15M PRN PO DECREASED GLUCOSE; Start 07/30/18 at 20:00 Glucose (Glutose) 22.5 gm Q15M PRN PO DECREASED GLUCOSE; Start 07/30/18 at 20:00 Dextrose (D50w Syringe) 25 ml Q15M PRN IV DECREASED GLUCOSE; Start 07/30/18 at 20:00 Dextrose (D50w Syringe) 50 ml Q15M PRN IV DECREASED GLUCOSE; Start 07/30/18 at 20:00 Glucagon (Glucagen) 1 mg Q15M PRN IM DECREASED GLUCOSE; Start 07/30/18 at 20:00 Glucose (Glutose) 15 gm Q15M PRN BUCCAL DECREASED GLUCOSE; Start 07/30/18 at 20:00 Aspirin (Aspirin) 81 mg DAILY PO Last administered on 08/02/18at 08:43; Admin Dose 81 MG; Start 08/01/18 at 09:00 Carvedilol (Coreg) 3.125 mg BID GTB Last administered on 08/02/18at 11:43; Admin Dose 3.125 MG; Start 07/31/18 at 21:00 Insulin Aspart (Novolog Insulin Pen) (Adult SC Insulin - Mild Algorithm)... AC MEALS AND BEDTIME SC Last administered on 08/02/18at 17:23; Admin Dose 2 UNIT; Start 08/01/18 at 07:00 Albuterol/ Ipratropium (Duoneb) 3 ml Q4H RESP THERAPY PRN HHN SHORTNESS OF BREATH Last administered on 08/01/18at 00:36; Admin Dose 3 ML; Start 08/01/18 at 00:30 Acetylcysteine (Mucomyst) 3 ml Q6H RESP THERAPY PRN NEB SHORTNESS OF BREATH Last administered on 08/01/18at 00:36; Admin Dose 3 ML; Start 08/01/18 at 00:30 Insulin Glargine (Lantus) 10 units DAILY@2000 SC Last administered on 08/02/18 23:00; Admin Dose 10 UNITS; Start 08/01/18 at 20:00 Insulin Aspart (Novolog Insulin Pen) 3 unit WITH MEALS SC Last administered on 08/02/18 17:23; Admin Dose 3 UNIT; Start 08/01/18 at 18:00 Hydralazine HCl (Apresoline) 10 mg Q8 PO Last administered on 08/03/18 05:40; Admin Dose 10 MG; Start 08/02/18 at 22:00 Furosemide (Lasix) 40 mg BID DIURETICS IV Last administered on 08/03/18 05:38; Admin Dose 40 MG; Start 08/02/18 at 18:00 JUN MONTES Aug 03, 2018 09:43
[2018-08-03] MEDS ORDERED: NA BICARBONATE 650 MG TAB PO SCH (10:00)
--- NOTE | 2018-08-03 11:42 | PN ---
Date/Time of Note Date/Time of Note DATE: 08/03/18 TIME: 11:40 Assessment/Plan VTE Prophylaxis Risk score (from Nsg)>0 risk: 6 SCD applied (from Nsg): Yes Pharmacological prophylaxis: heparin Lines/Catheters IV Catheter Type (from Nrsg): Peripheral IV Assessment/Plan Hospital Course 1. Non-STEMI Heparin drip Lipitor Cardiology consultation with Dr. Reynaga appreciated, patient was to have a heart cath but troponins trended down and patient is chest pain-free and in light of CKD with potential of exacerbation of renal failure heart cath has been held for now Plan for heart cath today A1c and lipid profile noted 2. Acute respiratory failure secondary to edema and/or pneumonia-improved No evidence of sepsis status post empiric treatment, DC antibiotics Supplemental oxygen as needed Pulmonology consultation appreciated 3. Acute on chronic kidney disease Creatinine is stabilizing Nephrology consultation appreciated 4. Anion gap metabolic acidosis with respiratory compensation secondary to renal failure Nephrology consultation appreciated Lactic acid is normal, UA negative for ketones 5. Diabetes Increased basal and started mealtime insulin, continue sliding scale 6. Acute systolic and diastolic heart failure Patient with new diagnosis of heart failure, echo shows an EF of 25% with stage I diastolic heart failure Etiology may be ischemic, heart cath today 7. Normocytic anemia secondary to chronic disease and renal failure Monitor Prophylaxis: Heparin DC planning: Monitor renal function, heart cath today Result Diagram: 08/03/18 0501 08/03/18 0501 Results 24hrs Laboratory Tests Test 08/02/18 13:40 08/02/18 17:14 08/02/18 21:01 08/02/18 21:37 Activated 71.8 *H 60.5 H Partial Thrombopl ast Time Bedside Glucose 187 141 Test 08/03/18 05:01 08/03/18 07:00 08/03/18 07:32 08/03/18 07:38 White Blood Count 10.8 Red Blood Count 3.07 L Hemoglobin 9.4 L Hematocrit 29.3 L Mean Corpuscular 95.4 Volume Mean Corpuscular 30.6 Hemoglobin Mean Corpuscular 32.1 Hemoglobin Concen t Red Cell 13.9 Distribution Width Platelet Count 203 Mean Platelet 12.1 H Volume Immature 0.800 H Granulocytes % Neutrophils % 88.0 H Lymphocytes % 5.7 L Monocytes % 4.8 Eosinophils % 0.5 Basophils % 0.2 Nucleated Red 0.0 Blood Cells % Immature 0.090 H Granulocytes # Neutrophils # 9.5 H Lymphocytes # 0.6 L Monocytes # 0.5 Eosinophils # 0.1 Basophils # 0.0 Nucleated Red 0.0 Blood Cells # Sodium Level 140 Potassium Level 3.9 Chloride Level 105 Carbon Dioxide 19 L Level Anion Gap 16 H Blood Urea 97 H Nitrogen Creatinine 2.90 H Est Glomerular 16 L Filtrat Rate mL/min Glucose Level 171 Calcium Level 9.1 Phosphorus Level 6.3 H Magnesium Level 2.3 Blood Gas Blood arterial Specimen Source Arterial Blood 08/03/2018 8:20:3 Date Drawn 7 AM Arterial Blood pH 7.298 *L (Temp corrected) Arterial Blood 38.8 pCO2 (Temp correct) Arterial Blood 92.1 pO2 (Temp corrected) Arterial Blood 18.6 L HCO3 Arterial Blood -7.3 L Base Excess Arterial Blood 96.1 Oxygen Saturation [place] Test ACCEPTAB Arterial Blood Right Radial Gas Puncture Site Arterial 0.3 Blood Carboxyhemo globin Arterial Blood 0.3 Methemoglobin Blood Gas A-a O2 119.6 H Differential Oxyhemoglobin 95.5 Percent Blood Gas 37.0 Temperature Blood Gas NASAL CANNULA Modality FiO2 36.0 Blood Gas BURTON MENDOZA Critical Value Read Back Blood Gas TM Notified Whom Blood Gas 08/03/2018 8:31:1 Notified Time 1 AM Activated 55.3 H Partial Thrombopl ast Time Bedside Glucose 165 Test 08/03/18 11:36 Bedside Glucose 150 Subjective 24 Hr Interval Summary Constitutional: no complaints Exam/Review of Systems Exam Vitals Vital Signs Date Temp Pulse Resp B/P (MAP) Pulse Ox O2 O2 Flow FiO2 Time Delivery Rate 08/03/18 97.6 73 20 98/65 (76) 92 Nasal 11:08 Cannula 08/03/18 5.0 10:44 08/02/18 40 03:20 Intake and Output 08/02/18 08/02/18 08/03/18 1515:00 23:00 07:00 IntakeIntake Total 50 ml 400 ml 550 ml OutputOutput Total 300 ml 500 ml BalanceBalance 50 ml 100 ml 50 ml Constitutional: alert, oriented Respiratory: clear to auscultation Cardiovascular: regular rate and rhythm Gastrointestinal: soft; No distended Musculoskeletal: nl extremities to inspection Results Results 24hrs Laboratory Tests Test 08/02/18 13:40 08/02/18 17:14 08/02/18 21:01 08/02/18 21:37 Activated 71.8 *H 60.5 H Partial Thrombopl ast Time Bedside Glucose 187 141 Test 08/03/18 05:01 08/03/18 07:00 08/03/18 07:32 08/03/18 07:38 White Blood Count 10.8 Red Blood Count 3.07 L Hemoglobin 9.4 L Hematocrit 29.3 L Mean Corpuscular 95.4 Volume Mean Corpuscular 30.6 Hemoglobin Mean Corpuscular 32.1 Hemoglobin Concen t Red Cell 13.9 Distribution Width Platelet Count 203 Mean Platelet 12.1 H Volume Immature 0.800 H Granulocytes % Neutrophils % 88.0 H Lymphocytes % 5.7 L Monocytes % 4.8 Eosinophils % 0.5 Basophils % 0.2 Nucleated Red 0.0 Blood Cells % Immature 0.090 H Granulocytes # Neutrophils # 9.5 H Lymphocytes # 0.6 L Monocytes # 0.5 Eosinophils # 0.1 Basophils # 0.0 Nucleated Red 0.0 Blood Cells # Sodium Level 140 Potassium Level 3.9 Chloride Level 105 Carbon Dioxide 19 L Level Anion Gap 16 H Blood Urea 97 H Nitrogen Creatinine 2.90 H Est Glomerular 16 L Filtrat Rate mL/min Glucose Level 171 Calcium Level 9.1 Phosphorus Level 6.3 H Magnesium Level 2.3 Blood Gas Blood arterial Specimen Source Arterial Blood 08/03/2018 8:20:3 Date Drawn 7 AM Arterial Blood pH 7.298 *L (Temp corrected) Arterial Blood 38.8 pCO2 (Temp correct) Arterial Blood 92.1 pO2 (Temp corrected) Arterial Blood 18.6 L HCO3 Arterial Blood -7.3 L Base Excess Arterial Blood 96.1 Oxygen Saturation [place] Test ACCEPTAB Arterial Blood Right Radial Gas Puncture Site Arterial 0.3 Blood Carboxyhemo globin Arterial Blood 0.3 Methemoglobin Blood Gas A-a O2 119.6 H Differential Oxyhemoglobin 95.5 Percent Blood Gas 37.0 Temperature Blood Gas NASAL CANNULA Modality FiO2 36.0 Blood Gas BURTON MENDOZA Critical Value Read Back Blood Gas TM Notified Whom Blood Gas 08/03/2018 8:31:1 Notified Time 1 AM Activated 55.3 H Partial Thrombopl ast Time Bedside Glucose 165 Test 08/03/18 11:36 Bedside Glucose 150 Medications Medication Current Medications IV Flush (NS 3 ml) 3 ml PER PROTOCOL IV ; Start 07/30/18 at 19:30 Ondansetron HCl (Zofran Inj) 4 mg Q6H PRN IV NAUSEA/VOMITING; Start 07/30/18 at 19:30 Acetaminophen (Tylenol Tab) 650 mg Q6H PRN PO .PAIN 1-3 OR TEMP Last administered on 08/01/18at 00:02; Admin Dose 325 MG; Start 07/30/18 at 19:30 Acetaminophen/ Hydrocodone Bitart ([place] (5/325)) 1 tab Q6H PRN PO .MOD PAIN 4- 6; Start 07/30/18 at 19:30 Morphine Sulfate (morphine) 2 mg Q4H PRN IV .SEVERE PAIN 7-10; Start 07/30/18 at 19:30 Docusate Sodium (Colace) 100 mg Q12H PRN PO .CONSTIPATION; Start 07/30/18 at 19:30 Zolpidem Tartrate (Ambien) 5 mg QHS PRN PO .INSOMNIA; Start 07/30/18 at 19:30 Heparin Sodium (Porcine) (Heparin (1000 Units/ml)) 3,900 unit PER PROTOCOL PRN IV aPTT<47 Last administered on 07/31/18at 18:12; Admin Dose 3,900 UNIT; Start 07/30/18 at 19:30 Heparin Sodium (Porcine) 250 ml @ 8 mls/hr PER PROTOCOL IV Last administered on 08/03/18at 09:10; Admin Dose 10.5 MLS/HR; Start 07/30/18 at 19:30 Atorvastatin Calcium (Lipitor) 80 mg HS PO Last administered on 08/02/18at 21:39; Admin Dose 80 MG; Start 07/30/18 at 21:00 Miscellaneous Information 1 ea NOTE XX ; Start 07/30/18 at 20:00 Glucose (Glutose) 15 gm Q15M PRN PO DECREASED GLUCOSE; Start 07/30/18 at 20:00 Glucose (Glutose) 22.5 gm Q15M PRN PO DECREASED GLUCOSE; Start 07/30/18 at 20:00 Dextrose (D50w Syringe) 25 ml Q15M PRN IV DECREASED GLUCOSE; Start 07/30/18 at 20:00 Dextrose (D50w Syringe) 50 ml Q15M PRN IV DECREASED GLUCOSE; Start 07/30/18 at 20:00 Glucagon (Glucagen) 1 mg Q15M PRN IM DECREASED GLUCOSE; Start 07/30/18 at 20:00 Glucose (Glutose) 15 gm Q15M PRN BUCCAL DECREASED GLUCOSE; Start 07/30/18 at 20:00 Aspirin (Aspirin) 81 mg DAILY PO Last administered on 08/02/18 08:43; Admin Dose 81 MG; Start 08/01/18 at 09:00 Carvedilol (Coreg) 3.125 mg BID GTB Last administered on 08/02/18 11:43; Admin Dose 3.125 MG; Start 07/31/18 at 21:00 Insulin Aspart (Novolog Insulin Pen) (Adult SC Insulin - Mild Algorithm)... AC MEALS AND BEDTIME SC Last administered on 08/02/18 17:23; Admin Dose 2 UNIT; Start 08/01/18 at 07:00 Albuterol/ Ipratropium (Duoneb) 3 ml Q4H RESP THERAPY PRN HHN SHORTNESS OF BREATH Last administered on 08/01/18 00:36; Admin Dose 3 ML; Start 08/01/18 at 00:30 Acetylcysteine (Mucomyst) 3 ml Q6H RESP THERAPY PRN NEB SHORTNESS OF BREATH Last administered on 08/01/18 00:36; Admin Dose 3 ML; Start 08/01/18 at 00:30 Insulin Glargine (Lantus) 10 units DAILY@2000 SC Last administered on 08/02/18 23:00; Admin Dose 10 UNITS; Start 08/01/18 at 20:00 Insulin Aspart (Novolog Insulin Pen) 3 unit WITH MEALS SC Last administered on 08/02/18 17:23; Admin Dose 3 UNIT; Start 08/01/18 at 18:00 Hydralazine HCl (Apresoline) 10 mg Q8 PO Last administered on 08/03/18 05:40; Admin Dose 10 MG; Start 08/02/18 at 22:00 Furosemide (Lasix) 40 mg BID DIURETICS IV Last administered on 08/03/18 05:38; Admin Dose 40 MG; Start 08/02/18 at 18:00 Sodium Bicarbonate (Sodium Bicarbonate Tab) 650 mg TID PO Last administered on 08/03/18 09:55; Admin Dose 650 MG; Start 08/03/18 at 10:00 VÍCTOR MIR Aug 03, 2018 11:42
[2018-08-03] MEDS ORDERED: MIDAZOLAM 1 MG/ML 2 ML INJ ONE (11:59)
[2018-08-03] MEDS ORDERED: HEPARIN 1000 UNITS/ML 10 ML INJ ONE (11:59)
[2018-08-03] MEDS ORDERED: NITROGLYCERIN (IC) 100 MCG/ML INJ ONE (11:59)
[2018-08-03] MEDS ORDERED: IODIXANOL LOCM 100 ML BTL ONE ×2 (11:59→14:16)
[2018-08-03] MEDS ORDERED: VERAPAMIL 5 MG INJ ONE (11:59)
[2018-08-03] MEDS ORDERED: FENTAnyl 50 MCG/ML VIAL ONE (11:59)
[2018-08-03] MEDS ORDERED: BIVALIRUDIN 250MG /NS 50 ML 50 ML IVPB ONE ×2 (12:55→14:00)
[2018-08-03] MEDS ORDERED: niCARdipine 25 MG INJ ONE (13:11)
[2018-08-03] MEDS ORDERED: AMIODARONE DRIP IV SCH ×2 (14:00)
[2018-08-03] MEDS ORDERED: [UNRECOGNIZED DRUG - REMARK] IV SCH (14:00)
[2018-08-03] MEDS ORDERED: AMIODARONE 150MG/D5W BOLUS 100 ML IV ONE (14:00)
[2018-08-03] MEDS ORDERED: DOPamine-D5W 1.6 MG/ML 250 ML ONE (14:00)
[2018-08-03] MEDS ORDERED: [UNRECOGNIZED DRUG - REMARK] IV ONE (14:00)
--- NOTE | 2018-08-03 14:15 | RADRPT ---
Vent Rate: 76 bpm RR Interval: 0 msec [place] Interval: 142 msec QRS Duration: 114 msec QT Interval: 450 msec QTC Interval: 506 msec P-R-T [place]: 47 - -72 - 49 degrees Normal sinus rhythm Possible Left atrial enlargement Left anterior fascicular block Anteroseptal infarct , age undetermined Abnormal ECG Electronically Signed By: Ke Rodriguez
[2018-08-03] MEDS ORDERED: IOHEXOL 350MG/ML 50 ML BTL ONE (14:16)
[2018-08-03] MEDS ORDERED: CANGRELOR TETRASODIUM/ NS 250 50 MG ONE (14:18)
--- NOTE | 2018-08-03 14:57 | SIPON ---
Date/Time of Note Date/Time of Note DATE: 08/03/18 TIME: 14:47 Operative Report Preoperative Diagnosis 1.Acute [place] Postoperative Diagnosis 1.obstructive cad s/p successful PTCA/stent x 1 to 2.PLacement IABP 3.cardiogenic shock Operation/Procedure Performed 1.LHC/PTCA/stent x to LAD 2.PLacement IABP Surgeon see signature line laboratory chemical assistant 1.Rickey Anesthesia: moderate sedation Estimated blood loss: minimal Transfusion Required none Specimen none Grafts/Implants none Complications none OFELIA ANNE Aug 03, 2018 14:57
[2018-08-03] MEDS ORDERED: ONDANSETRON 4 MG INJ IV PRN (15:00)
[2018-08-03] MEDS ORDERED: morphine 2 MG INJ IV PRN (15:00)
[2018-08-03] MEDS ORDERED: ACETAMINOPHEN 325 MG TAB PO PRN (15:00)
[2018-08-03] MEDS ORDERED: AL HYDROX/MG HYDROX/SIMETH 30 ML CUP PO PRN (15:00)
[2018-08-03] MEDS ORDERED: OXYCODONE/ACETAMINOPHEN (5/325) TAB PO PRN (15:00)
--- NOTE | 2018-08-03 15:36 | EN ---
Date/Time of Note Date/Time of Note DATE: 08/03/18 TIME: 15:35 ER Progress Note I was called out of the emergency department to Survey Workers Supervisor for a CODE BLUE event. The patient was receiving high-quality CPR and being bagged by respiratory therapy. I immediately took over as the CODE BLUE leader and ran the code. Please see the code sheet for full details. The patient received epinephrine, bicarb, calcium gluconate The final results of the CODE BLUE was ROSC HPI: Please note the history and physical exam is limited as the patient is receiving CPR at this time. The patient is in full cardiac arrest. Physical exam: The patient is being bagged by respiratory therapy. There is no movement. GCS is 3. Endotracheal Intubation by me: Pre assessment performed. Pre-oxygenation performed with 100% oxygen RSI: Performed w/o complication or hypoxic events. Medications as ordered. Blade: 3 ET Tube: 7.5 cm Depth: 22 cm at the lip Intubation confirmed by colorimetric CO2, equal breath sounds, quiet over the stomach. FRANCISCO ANDERSON MD Aug 03, 2018 15:36
[2018-08-03] MEDS ORDERED: TICAGRELOR 90 MG TABLET PO ONE (16:00)
--- NOTE | 2018-08-03 16:18 | CONS ---
Assessment/Plan Assessment/Plan Hospital Course (Demo Recall) IMP: 1. Acute [place]-downtrending cardiac enzymes. NO chest pain. Now post-op s/p PTCA/stent x 1 to LAD c/b code blue.VF x2. Need to place IABP/start presors/inotropes/intubation 2.HTN 3.abnl ecg-IVCD 4.Renal failure 5.HL 6.DM 7. Cartdiomyopathy EF 25%/mod-sev MR 8. CHF-systolic acute 9. Resp failure s/p intubation Recc: -ICU -Contineu cangrelor -Continue amiodarone -Continue pressors/inotropes -continue amio -maintain IABP 1:1 -poor prognosis Consultation Date/Type/Reason Admit Date/Time Jul 30, 2018 at 17:20 Initial Consult Date 07/31/18 Type of Consult Cardiology Reason for Consultation Acute [place] Requesting Provider: VÍCTOR MIR Date/Time of Note DATE: 08/03/18 TIME: 16:07 Exam/Review of Systems Vital Signs Vitals Vital Signs Date Temp Pulse Resp B/P (MAP) Pulse Ox O2 O2 Flow FiO2 Time Delivery Rate 08/03/18 76 12:33 08/03/18 97.6 20 98/65 (76) 92 Nasal 11:08 Cannula 08/03/18 5.0 10:44 08/02/18 40 03:20 Intake and Output 08/02/18 08/02/18 08/03/18 1515:00 23:00 07:00 IntakeIntake Total 50 ml 400 ml 550 ml OutputOutput Total 300 ml 500 ml BalanceBalance 50 ml 100 ml 50 ml Exam Exam Review of Systems: CONSTITUTIONAL: No fevers, chills. PULMONARY: No sob CARDIOVASCULAR: No chest pain/palpitations GASTROINTESTINAL: No nausea/vomiting. GENITOURINARY: No hematuria/dysuria. MUSCULOSKELETAL: No myagias/arthalgias. PSYCHIATRIC: The patient denies depression. NEUROLOGIC: No weakness Constitutional: other (sedated) Head: normocephalic ENMT: mucosa pink and moist Neck: supple, jvd (10 cm water) Respiratory: diminished breath sounds Cardiovascular: regular rate and rhythm Gastrointestinal: soft Musculoskeletal: muscle weakness (generalized) Extremities: edema (trace/B) Neurological: other Labs Result Diagram: 08/03/18 0501 08/03/18 0501 Results 24hrs Laboratory Tests Test 08/02/18 17:14 08/02/18 21:01 08/02/18 21:37 08/03/18 05:01 Bedside Glucose 187 141 Activated 60.5 H Partial Thrombopl ast Time White Blood Count 10.8 Red Blood Count 3.07 L Hemoglobin 9.4 L Hematocrit 29.3 L Mean Corpuscular 95.4 Volume Mean Corpuscular 30.6 Hemoglobin Mean Corpuscular 32.1 Hemoglobin Concen t Red Cell 13.9 Distribution Width Platelet Count 203 Mean Platelet 12.1 H Volume Immature 0.800 H Granulocytes % Neutrophils % 88.0 H Lymphocytes % 5.7 L Monocytes % 4.8 Eosinophils % 0.5 Basophils % 0.2 Nucleated Red 0.0 Blood Cells % Immature 0.090 H Granulocytes # Neutrophils # 9.5 H Lymphocytes # 0.6 L Monocytes # 0.5 Eosinophils # 0.1 Basophils # 0.0 Nucleated Red 0.0 Blood Cells # Sodium Level 140 Potassium Level 3.9 Chloride Level 105 Carbon Dioxide 19 L Level Anion Gap 16 H Blood Urea 97 H Nitrogen Creatinine 2.90 H Est Glomerular 16 L Filtrat Rate mL/min Glucose Level 171 Calcium Level 9.1 Phosphorus Level 6.3 H Magnesium Level 2.3 Test 08/03/18 07:00 08/03/18 07:32 08/03/18 07:38 08/03/18 11:36 Blood Gas Blood arterial Specimen Source Arterial Blood 08/03/2018 8:20:3 Date Drawn 7 AM Arterial Blood pH 7.298 *L (Temp corrected) Arterial Blood 38.8 pCO2 (Temp correct) Arterial Blood 92.1 pO2 (Temp corrected) Arterial Blood 18.6 L HCO3 Arterial Blood -7.3 L Base Excess Arterial Blood 96.1 Oxygen Saturation Carson Test ACCEPTAB Arterial Blood Right Radial Gas Puncture Site Arterial 0.3 Blood Carboxyhemo globin Arterial Blood 0.3 Methemoglobin Blood Gas A-a O2 119.6 H Differential Oxyhemoglobin 95.5 Percent Blood Gas 37.0 Temperature Blood Gas NASAL CANNULA Modality FiO2 36.0 Blood Gas BURTON MENDOZA Critical Value Read Back Blood Gas TM Notified Whom Blood Gas 08/03/2018 8:31:1 Notified Time 1 AM Activated 55.3 H Partial Thrombopl ast Time Bedside Glucose 165 150 Test 08/03/18 15:52 Bedside Glucose 204 Medications Medications Current Medications IV Flush (NS 3 ml) 3 ml PER PROTOCOL IV ; Start 07/30/18 at 19:30 Morphine Sulfate (morphine) 2 mg Q4H PRN IV .SEVERE PAIN 7-10; Start 07/30/18 at 19:30 Docusate Sodium (Colace) 100 mg Q12H PRN PO .CONSTIPATION; Start 07/30/18 at 19:30 Zolpidem Tartrate (Ambien) 5 mg QHS PRN PO .INSOMNIA; Start 07/30/18 at 19:30 Heparin Sodium (Porcine) (Heparin (1000 Units/ml)) 3,900 unit PER PROTOCOL PRN IV aPTT<47 Last administered on 07/31/18at 18:12; Admin Dose 3,900 UNIT; Start 07/30/18 at 19:30 Heparin Sodium (Porcine) 250 ml @ 8 mls/hr PER PROTOCOL IV Last administered on 08/03/18at 09:10; Admin Dose 10.5 MLS/HR; Start 07/30/18 at 19:30 Atorvastatin Calcium (Lipitor) 80 mg HS PO Last administered on 08/02/18at 21:39; Admin Dose 80 MG; Start 07/30/18 at 21:00 Miscellaneous Information 1 ea NOTE XX ; Start 07/30/18 at 20:00 Glucose (Glutose) 15 gm Q15M PRN PO DECREASED GLUCOSE; Start 07/30/18 at 20:00 Glucose (Glutose) 22.5 gm Q15M PRN PO DECREASED GLUCOSE; Start 07/30/18 at 20:00 Dextrose (D50w Syringe) 25 ml Q15M PRN IV DECREASED GLUCOSE; Start 07/30/18 at 20:00 Dextrose (D50w Syringe) 50 ml Q15M PRN IV DECREASED GLUCOSE; Start 07/30/18 at 20:00 Glucagon (Glucagen) 1 mg Q15M PRN IM DECREASED GLUCOSE; Start 07/30/18 at 20:00 Glucose (Glutose) 15 gm Q15M PRN BUCCAL DECREASED GLUCOSE; Start 07/30/18 at 20:00 Carvedilol (Coreg) 3.125 mg BID GTB Last administered on 08/02/18at 11:43; Admin Dose 3.125 MG; Start 07/31/18 at 21:00 Insulin Aspart (Novolog Insulin Pen) (Adult SC Insulin - Mild Algorithm)... AC MEALS AND BEDTIME SC Last administered on 08/02/18 17:23; Admin Dose 2 UNIT; Start 08/01/18 at 07:00 Albuterol/ Ipratropium (Duoneb) 3 ml Q4H RESP THERAPY PRN HHN SHORTNESS OF BREATH Last administered on 08/01/18at 00:36; Admin Dose 3 ML; Start 08/01/18 at 00:30 Acetylcysteine (Mucomyst) 3 ml Q6H RESP THERAPY PRN NEB SHORTNESS OF BREATH Last administered on 08/01/18at 00:36; Admin Dose 3 ML; Start 08/01/18 at 00:30 Insulin Glargine (Lantus) 10 units DAILY@2000 SC Last administered on 08/02/18 23:00; Admin Dose 10 UNITS; Start 08/01/18 at 20:00 Insulin Aspart (Novolog Insulin Pen) 3 unit WITH MEALS SC Last administered on 08/02/18at 17:23; Admin Dose 3 UNIT; Start 08/01/18 at 18:00 Hydralazine HCl (Apresoline) 10 mg Q8 PO Last administered on 08/03/18at 05:40; Admin Dose 10 MG; Start 08/02/18 at 22:00 Furosemide (Lasix) 40 mg BID DIURETICS IV Last administered on 08/03/18at 05:38; Admin Dose 40 MG; Start 08/02/18 at 18:00 Sodium Bicarbonate (Sodium Bicarbonate Tab) 650 mg TID PO Last administered on 08/03/18at 09:55; Admin Dose 650 MG; Start 08/03/18 at 10:00 Amiodarone HCl 900 mg/Dextrose 500 ml @ 0 mls/hr Q0M IV ; Start 08/03/18 at 14:00 Dobutamine HCl/ Dextrose 250 ml @ 9.81 mls/hr TITRATE ONCE IV ; Start 08/03/18 at 15:00; Stop 08/03/18 at 16:29 Aspirin (Halfprin) 81 mg DAILY PO ; Start 08/04/18 at 09:00 Acetaminophen (Tylenol Tab) 650 mg Q4H PRN PO PAIN; Start 08/03/18 at 15:00 Oxycodone/ Acetaminophen (Percocet (5/ 325)) 1 tab Q4H PRN PO PAIN; Start 08/03/18 at 15:00 Morphine Sulfate (morphine) 1 mg Q1H PRN IV PAIN; Start 08/03/18 at 15:00 Al Hydrox/Mg Hydrox/Simethicone (Mag-Al Plus) 30 ml Q4H PRN PO GASTROINTESTINAL UPSET; Start 08/03/18 at 15:00 Ondansetron HCl (Zofran Inj) 4 mg Q4H PRN IV NAUSEA AND/OR VOMITING; Start 08/03/18 at 15:00 Sodium Chloride 1,000 ml @ 75 mls/hr [id number] IV ; Start 08/03/18 at 16:30; Stop 08/04/18 at 05:49 Norepinephrine 16 mg/Dextrose 250 ml @ 0.94 mls/hr TITRATE IV ; Start 08/03/18 at 16:30 Dopamine HCl 800 mg/Dextrose 250 ml @ 2.45 mls/hr TITRATE IV ; Start 08/03/18 at 16:30 Dobutamine HCl/ Dextrose 250 ml @ 4.905 mls/ hr TITRATE IV ; Start 08/03/18 at 16:30 OFELIA ANNE Aug 03, 2018 16:18
[2018-08-03] MEDS ORDERED: DOBUTamine/D5W 2 MG/ML DRIP 250 ML IV SCH (16:30)
[2018-08-03] MEDS ORDERED: DOPamine 800 MG in DEXTROSE 5% 230 ML IV SCH (16:30)
[2018-08-03] MEDS ORDERED: SOD CHLORIDE 0.9% 1,000 ML IV SCH (16:30)
--- NOTE | 2018-08-03 21:23 | CARRPT ---
DATE OF PROCEDURE: 08/03/2018 TYPE OF PROCEDURES: 1. Left heart catheterization. 2. Coronary angiography. 3. Percutaneous transluminal coronary angioplasty with placement of Synergy drug-eluting stent x1 to mid LAD, 3.0 x 16 mm. 4. Placement of intraaortic balloon into left femoral artery. 5. Placement of right central venous line. 6. Moderate conscious sedation. ATTENDING PHYSICIAN: Ofelia Reynaga MD REFERRING PHYSICIAN: Saima Cruz MD INDICATION: Acute myocardial infarction. TYPE OF ANESTHESIA: Conscious and local. BRIEF HISTORY: Ms. Krueger is a 63-year-old female with a history of hypertension and dyslipidemia who had presented with complaints of shortness of breath, substernal chest pain, ruled in for a non-ST myocardial infarction. The patient was taken emergently to the laboratory [facility], but did have down trending troponins, no obvious chest pain, but ongoing significant renal failure. This procedure was delayed and she was consulted by the renal services and followed by cardiology and internal medicine. The patient continued to have renal failure, but due to high-risk features noted by 2D echo with severely depressed EF, it was decided that it was important to better define the patient's anatomy; therefore, the patient was brought to the cardiac laboratory [facility] in order to assess for ongoing significant obstructive coronary artery disease lending to chest pain, decreased EF and non-ST myocardial infarction. DESCRIPTION OF PROCEDURE: After informed consent was obtained, the patient was brought to the [facility] cardiac catheterization lab where her right radial area was prepped and draped in a sterile fashion. A 2% lidocaine was infiltrated into right radial artery in order to achieve adequate anesthesia. Using the modified Seldinger technique, the radial artery was cannulated and a 6-Gambian arterial sheath was placed. A 6-Gambian JL3.5 catheter was used to cannulate the left main coronary ostium. With contrast injection, multiple views of the left coronary system were obtained. JL3.5 was removed over a guidewire and JR4 was used to cannulate the right coronary arterial ostium. With contrast injection, multiple views of right coronary system were obtained. JR4 was removed over a guidewire and in the meantime, a 6-Gambian pigtail was passed in the LV and used to measure LVEDP and pullback across the aortic valve to assess for significant gradient, which there was not. Subsequently, at this time, we moved directly into an interventional procedure. The patient received Angiomax bolus in continuous infusion. After I have an ACT checked and had ____ from her IV heparin drip that she had prior to initiation of procedure. The patient was started on Angiomax bolus. A Q3 guide was used to cannulate the left main coronary ostium. A 0.014 balanced middleweight guidewire was passed distal to the lesion. The lesion was pretreated with a 2.5 x 12 mm balloon. Multiple inflations were done throughout this returning flow and then after a final balloon inflation, the patient once again had no flow, likely consistent with downstream embolization. The patient's pressure dropped. Subsequently, there was some sluggish flow, so we were able to place a 3.0 x 16 mm drug-eluting stent and the patient was being started on dopamine pressor support and we were going to gain access for femoral approach to place intraaortic balloon pump and subsequently placement of stent. The patient continued to have no distal flow once again and pressure began to drop worse even on dopamine and the patient's heart went to the stand still and the code blue was called. At this time, stent already in place I gave the patient a total of 500 mcg of intracoronary nicardipine and a code was began. The patient received compressions and ACLS protocol with multiple rounds of epinephrine, bicarbonate, calcium and then the patient was intubated and finally had a return of perfusing rhythm at that time. Once we were able to get few rhythm, I was able to get arterial access on the left side and there was already arterial access in the right side although this was not known as there was no flow and was placed into vessel with very little flow initially. This was already in place. The left femoral artery was cannulated and arterial sheath was placed and through this, we placed using 40 mL intraaortic balloon was placed just above the gloria. Subsequently, she was placed on 1:1 augmentation. The patient was continued on dopamine and again perfusing rhythm. The patient's catheter still remained in the left main and we took angiographic image now revealing excellent placement of the stent with now slow NOEL 1 to 2 flow to come down the LAD. This continued to improve, though became NOEL 3 flow with some injections. Subsequently, at this time, interventional guide and guidewires were removed and we gained a venous access on the right side and placed a 7-Gambian venous sheath which was sutured in place and for pressures to be given through this. Subsequently, the patient's right arterial sheath was sutured in place. The patient's intraaortic balloon pump was sutured in place. The patient at this time has been cleaned up, had the onset of VF and was given shocks at 200 joules x2, returning her to sinus rhythm, sinus tachycardia. In addition, the patient was noted to have onset of atrial fibrillation during the procedure and was given amiodarone 150 followed by drip and after the onset of VF, the patient was given lidocaine 100 mg IV push x1. The patient thereafter stabilized and is now to be transferred to the ICU with improved blood pressure and heart rate on dopamine and Levophed pressor support. FINDINGS: Coronary angiography revealed a left main is 4 mm, no significant focal stenoses. Circumflex proximally is a 3.5 mm vessel and has distal stenosis approximately 30% just before the bifurcation. Circumflex proximally is a 3.5 mm vessel and has approximately 30% to 40% stenosis. It is a codominant vessel and gives off a left-sided PDA 2 mm and left-sided posterior branch is 2 mm, no significant focal stenoses. There is a mid to distal branching obtuse marginal, a 2.5 mm with an ostial proximal 40% stenosis. LAD proximally is a 3 mm vessel and just after takeoff has a 99% subtotal occlusion. There is a diagonal branch just proximal to this, approximately 2 mm vessel with diffuse tubular 80% stenosis and diagonal branches distal stenosis which is a 2 mm vessel with an ostial 50% stenosis. The LAD thereafter does become a small caliber vessel with mild to moderate diffuse disease, but no significant focal stenoses thereafter. Right coronary artery is a 2 mm vessel and is a nondominant vessel with a mid body 40% stenosis. PTCA and stent placement: Prior to PTCA, the patient had 90% to 95% stenosis. Post PTCA, the patient had the patient had no residual stenosis and improved flow down the vessel. Measurement of LVEDP of 24 and 25. No significant aortic stenosis by gradient. Insertion of intraaortic balloon pump was inserted at the gloria at 1:1 augmentation. TOTAL FLUOROSCOPY TIME: 13.5 minutes. TOTAL CONTRAST: 80 mL. IMPRESSION: 1. Primarily single vessel obstructive coronary artery disease involving the mid LAD lesion, subtotal occlusion status post successful PTCA and stent placement. 2. Development of cardiogenic shock, status post successful placement of intraaortic balloon pump with improvement in hemodynamics. 3. Elevated left heart filling pressures. 4. No significant aortic stenosis by gradient. RECOMMENDATIONS: In light of procedure findings at this time, we would: 1. Maintain the patient on Cangrelor and we will load patient with Brilinta and aspirin. 2. Continue the patient's intraaortic balloon pump at 1:1 augmentation. 3. Continue the patient's pressor support and will likely initiate the patient on dobutamine pressor support. 4. The patient will be placed on heparin anticoagulation once areas of hematoma in the groin have dissipated. 5. The patient will be admitted to the ICU for post-intervention care and continued management of her ongoing symptoms. Dictated By: OFELIA ADEN/KEVIN Conf#: [id number] DID#: [id number] CC: SAIMA CRUZ MD;*End* MTDD
--- NOTE | 2018-08-03 23:35 | EN ---
Date/Time of Note Date/Time of Note DATE: 08/03/18 TIME: 1405 ER Progress Note CODE BLUE NOTE Subjective: I was called out of the emergency department to the ICU for a CODE BLUE event. Briefly, this is a 63-year-old female who was transferred to the ICU from the cardiac [facility] for acute coronary syndrome status post stenting to the LAD. The patient had coded in the catheterization lab, but return of spontaneous circulation was achieved prior to transfer to the ICU. Unfortunately, the patient lost pulses in the ICU again. When I arrived at bedside, the patient was receiving high-quality CPR and being bagged by respiratory therapy. Once at bedside, I immediately took over as the CODE BLUE leader and ran the code. Please note the history and physical exam is limited as the patient is in full cardiac arrest and is receiving CPR at this time. Objective: Vital signs reviewed Const: Unresponsive Head: Normocephalic, Atraumatic Eyes: Fixed and dilated pupils ENT: Normal External Ears, Nose and Mouth. Resp: Patient is intubated. No voluntary respirations. Respirations being assisted via BVM by a respiratory therapist with symmetric chest wall wills. Cardio: Pulseless, no heart beat. Abd: Non distended Skin: No petechiae or rashes Back: Deferred Ext: No cyanosis, or edema Neur: Unresponsive. Eyes closed. No voluntary movements or response to pain. Nonverbal. GCS 3. Assessment: Cardiac Arrest Plan: ACLS protocol was followed throughout the code. High-quality CPR was being completed. The patient was already on multiple pressor medications via infusion. The patient had already received 150 mg of amiodarone as a bolus in the [facility] and was on an amiodarone infusion as well. The patient received multiple episodes of epinephrine in the emergency department. The patient received multiple boluses of bicarbonate. The patient received calcium gluconate. The patient was initially asystole, but she did convert to ventricular fibrillation and was defibrillated multiple times. The patient received a second 150 mg bolus of amiodarone. She also received magnesium and a dose of lidocaine. Unfortunately, the patient's rhythm evolved back into asystole. This was the second cardiac arrest in the patient today. After approximately 20 minutes of coding the patient, I had a discussion with the family regarding the severity of her condition. The patient was very unlikely to have return of spontaneous circulation, and I did not feel that the patient was benefiting from our resuscitative efforts. After discussion with the family, they were comfortable with ceasing resuscitative efforts. I discussed the case with the patient's quality assurance assessor, Dr. Reynaga, who agreed. CPR was stopped. The patient had no pulse or heartbeat. She was asystole on the monitor. She had no spontaneous respirations. Her pupils were fixed and dilated. She had no corneal reflex. She had no gag reflex. She had no spontaneous movements. The final results of the CODE BLUE was . Time of 1605 on August 03, 2018. Please see the code sheet for full details. CRITICAL CARE NOTE Time: 20 minutes excluding all billable procedures. Treatments/Evaluations: The patient was at risk of hemodynamic compromise. Timing of critical care involved close serial monitoring, evaluation of the patient's medical record including previous records & current laboratory/imaging studies, potential interventions for prevention of hemodynamic/ cardiopulmonary/ neurologic compromise, maintaining tight fluid balance, and any discussions with the family and/or consultants regarding the patient's status and prognosis. ISABELLA PHAN MD Aug 03, 2018 23:35
--- NOTE | 2018-08-04 05:01 | CARRPT ---
DATE OF PROCEDURE: 08/03/2018 PROCEDURE PERFORMED: Placement of a central line. INDICATION: Hypotension, shock. BRIEF HISTORY: Ms. Krueger is a 63-year-old female with history of hypertension, dyslipidemia who had presented with acute SD and found to have severe depressed EF, was taken to cardiac catheterization lab, underwent [employer] and stent plating. Postoperatively, the patient had development of cardiogenic sh ock and requires additional access for multiple pressors. DESCRIPTION OF PROCEDURE: The patient's right jugular area of her neck was prepped and draped in usu al sterile fashion. The patient received lidocaine to the area in order to achieve adequate local an esthesia. The patient's right jugular vein was easily identified and accessed with the needle and a guidewire was placed. The tract was dilated and a triple lumen catheter was placed. It was sutured in place. All ports were flushed and actively working. This completed the procedure. There were no noted complications. IMPRESSION: Successful placement of a triple lumen central line into right internal jugular vein. Dictated By: OFELIA ADEN/KEVIN Conf#: [id number] DID#: [id number] CC: VÍCTOR MIR MD;*EndCC*
[2018-08-04] MEDS ORDERED: ASPIRIN (EC) 81 MG TAB PO SCH (09:00)
--- NOTE | 2018-09-07 10:21 | DES ---
Date/Time of Note Date/Time of Note DATE: 09/07/18 TIME: 10:16 Discharge/ Summary Admission/Discharge Info Admit Date/Time Jul 30, 2018 at 17:20 Date/Time 08/03/2018 1605 Final Diagnosis Cardiac Arrest, severe CAD, DM, CKD, CHF Preliminary Cause of Cardiac Arrest, severe CAD, DM, CKD, CHF Admit History Patient is a 63-year-old female with a history of diabetes, CKD, depression, left humerus fracture. Patient presents with several days of back pain as well as pain in the lower extremities. In the ER chest x-ray showed possible pneumonia and troponin level was elevated. Patient denied any chest pain ultrasound of lower extremities were negative for DVT. Patient was placed on BiPAP and history is obtained from daughter who is bedside as well as previous documentation. Hospital Course Pt is a 63 YO F with DM, CKD who was found to have NSTEMI and CHF. Pt went to labor delivery rn but only after renal function stabilized, pt was on a Heparin gtt. Cath with findings of CAD but pt went into Cardiogenic shock afterwards and ultimately went into arrest and was pronounced at 1605 on 08/03/18. VÍCTOR MIR September 07, 2018 10:21
== END 2018-08-03 16:05 | disposition expired | DRG 270 ==
LOC: E/R 13:49 → ICU 17:20 → 6WM 07-31 14:53 → ICU 08-03 13:40
PROVIDERS: ADMIT Internal Medicine; ATTEND Internal Medicine
PROC: 5A09357 Assistance with Respiratory Ventilation, Less than 24 Consecutive Hours, Continuous Positive Airway Pressure (ICD-10-PCS; principal; 2018-07-30)
PROC: 4A023N7 Measurement of Cardiac Sampling and Pressure, Left Heart, Percutaneous Approach (ICD-10-PCS; 2018-08-03)
PROC: B211YZZ Fluoroscopy of Multiple Coronary Arteries using Other Contrast (ICD-10-PCS; 2018-08-03)
PROC: 05HM33Z Insertion of Infusion Device into Right Internal Jugular Vein, Percutaneous Approach (ICD-10-PCS; 2018-08-03)
PROC: 5A12012 Performance of Cardiac Output, Single, Manual (ICD-10-PCS; 2018-08-03)
PROC: 5A02210 Assistance with Cardiac Output using Balloon Pump, Continuous (ICD-10-PCS; 2018-08-03 12:30)
PROC: 027034Z Dilation of Coronary Artery, One Artery with Drug-eluting Intraluminal Device, Percutaneous Approach (ICD-10-PCS; 2018-08-03 12:30)
DX: I21.4 Non-ST elevation (NSTEMI) myocardial infarction (principal); J96.01 Acute respiratory failure with hypoxia; J18.9 Pneumonia, unspecified organism; I50.41 Acute combined systolic (congestive) and diastolic (congestive) heart failure; N17.9 Acute kidney failure, unspecified; E87.4 Mixed disorder of acid-base balance; E87.0 Hyperosmolality and hypernatremia; I13.0 Hypertensive heart and chronic kidney disease with heart failure and stage 1 through stage 4 chronic kidney disease, or unspecified chronic kidney disease; E87.2 Acidosis; E11.22 Type 2 diabetes mellitus with diabetic chronic kidney disease; N18.9 Chronic kidney disease, unspecified; F32.9 Major depressive disorder, single episode, unspecified; D63.1 Anemia in chronic kidney disease; E11.21 Type 2 diabetes mellitus with diabetic nephropathy; E83.39 Other disorders of phosphorus metabolism; I49.01 Ventricular fibrillation; R57.0 Cardiogenic shock; Z79.4 Long term (current) use of insulin; Z79.82 Long term (current) use of aspirin; I46.9 Cardiac arrest, cause unspecified
CPT/HCPCS: 31500; 36415; 36600; 71045; 80048; 80053; 80061; 81001; 81003; 82043; 82550; 82553; 82803; 82962; 83036; 83605; 83735; 83880; 84100; 84155; 84300; 84484; 85025; 85610; 85730; 87081; 87086; 92950; 93005; 93306; 93458; 93970; 94002; 94640; 94660; 94664; 96374; 96375; J1250; C1725; C1751; C1874; C1887; C1894; C9460; C9600; J0171; J0282; J0456; J0583; J0692; J0696; J1265; J1644; J1815; J1940; J2001; J2250; J2543; J3010; J3370; J7030; J7060; J7070; Q9967